=== PATIENT | female | born 1990 | race Asian ===

== ENCOUNTER 2017-01-24 06:21 | Outpatient (CLI) | payer MEDICAID ==
[2017-01-24] MEDS ORDERED: LACTATED RINGERS 1,000 ML ONE (07:09)
[2017-01-24] MEDS ORDERED: LACTATED RINGERS 500 ML IV ONE (07:49)
[2017-01-24 08:25] LABS: Bilirubin,Urine NEG (Negative); Blood,Urine NEG (Negative); Ketones,Urine NEG (Negative); Leukocyte Esterase,Urine NEG (Negative); Mucus,Urine 1+ /HPF; Nitrite,Urine NEG (Negative); Protein,Urine <15 mg/dL mg/dL (Negative); Urobilinogen,Urine < 2.0 mg/dL (<2.0)
== END 2017-01-24 11:03 | disposition home or self-care (01) ==
LOC: TRG 06:21
PROVIDERS: ATTEND Obstetrics & Gynecology
DX: O47.03 False labor before 37 completed weeks of gestation, third trimester (principal); Z3A.30 30 weeks gestation of pregnancy
CPT/HCPCS: 81001; 96360; J7120

== ENCOUNTER 2017-03-09 21:31 | Outpatient (CLI) | payer MEDICAID ==
[2017-03-09 22:00] VITALS: BP 111/76
[2017-03-09] MEDS ORDERED: LACTATED RINGERS 500 ML IV ONE (22:10)
== END 2017-03-09 22:53 | disposition left against medical advice (07) ==
LOC: TRG 21:31
PROVIDERS: ATTEND Obstetrics & Gynecology
DX: O47.03 False labor before 37 completed weeks of gestation, third trimester (principal); Z3A.36 36 weeks gestation of pregnancy
CPT/HCPCS: J7120

== ENCOUNTER 2017-03-30 21:04 | Inpatient (IN) | payer MEDICAID ==
[2017-03-30 23:23] LABS: Hematocrit 33.2 % (30.3-42.9); Hemoglobin 11.2 gm/dl (10.1-14.3); Mean Corpuscular HGB Conc 34 % (30-34); Mean Corpuscular Hemoglobin 26 pg (28-32); Mean Corpuscular Volume 78 fl (79-97); Platelet Count 294 K/mm3 (140-440); Red Blood Count 4.24 M/mm3 (3.65-5.03); Red Cell Distribution Width 18.7 % (13.2-15.2)
[2017-03-30] MEDS ORDERED: AMBIEN PO PRN (23:29)
[2017-03-30] MEDS ORDERED: CERVIDIL VG ONE (23:29)
[2017-03-30] MEDS ORDERED: SUBLIMAZE IV ONE (23:29)
[2017-03-30] MEDS ORDERED: LACTATED RINGERS 1,000 ML IV SCH (23:45)
[2017-03-31] MEDS: STADOL IV PRN ×2 (06:08→10:44)
--- NOTE | 2017-03-31 08:31 | History and Physical Report ---
History of Present Illness Date of examination: 03/31/17 Date of admission: 03/30/17 21:04 History of present illness: 26 yo Ultrasound EDC 04/03/17 @ 39.4 weeks gestation presented during the night for induction of labor. Early entry into care at 12 weeks gestation. History of pulmonary embolism. Treated with Lovenox 40mg BID and unfractionated heparin started on 02/25/17. course complicated by morbid obesity with low normal first and second trimester GCT. Patient also noted to have LGSIL pap , UTI treated with Macrobid and intermittent left leg numbness. Her care was comang't with [facility]. Last EFW 6.8oz Past History Past Medical History: other (pulmonary embolism 2013, Iron deficiency) [employer] History: other (LGSIL pap) Family/Genetic History: diabetes, hypertension, stroke Social history: no significant social history - Obstetrical History Expected Date of Delivery: 04/03/17 Actual Gestation: 39 Week(s) 4 Day(s) : 2 Para: 0 Medications and Allergies Allergies Allergy/AdvReac Type Severity Reaction Status Date / Time No Known Allergies Allergy Unverified 01/24/17 07:00 Home Medications Medication Instructions Recorded Confirmed Last Taken Type Enoxaparin [Lovenox] 40 mg SQ Q12HR 01/24/17 01/24/17 01/23/17 20:00 History Ferrous Sulfate [Feosol] 325 mg PO QDAY 01/24/17 01/24/17 01/23/17 20:00 History Vitamin 1 tab PO QDAY 01/24/17 01/24/17 01/23/17 20:00 History Active Meds: Active Medications Butorphanol Tartrate (Stadol) 2 mg IV Q2H PRN PRN Reason: Labor Pain Last Admin: 03/31/17 06:08 Dose: 2 mg Lactated Ringer's (Lactated Ringers) 1,000 mls @ 125 mls/hr IV DIRECT JOSE Last Admin: 03/31/17 06:20 Dose: 125 mls/hr Zolpidem Tartrate (Ambien) 10 mg PO QHS PRN PRN Reason: Insomnia Last Admin: 03/31/17 00:19 Dose: 10 mg Review of Systems All systems: negative Genitourinary: normal appearance, leakage of fluid (clear), contractions, no vaginal bleeding, no genital sores - Vital Signs Vital signs: Vital Signs Temp Pulse Resp BP Pulse Ox 98.0 F 96 H 20 132/73 97 03/30/17 22:31 03/30/17 22:31 03/30/17 22:31 03/30/17 22:31 03/30/17 22:31 Temp Pulse Resp BP Pulse Ox 97.4 F L 99 H 24 135/95 100 03/31/17 08:01 03/31/17 08:24 03/31/17 08:01 03/31/17 08:01 03/31/17 08:24 - Physical Exam Breasts: Positive: deferred Abdomen: Positive: normal appearance Genitourinary (Female): Positive: normal external genitalia, normal perenium Vagina: Positive: normal moisture - Obstetrical FHR: category 1 Uterine Contraction Monitor Mode: External Cervical Dilatation: 3 Cervical Effacement Percentage: 50 station: -2 Uterine Contraction Frequency (min): 2 Uterine Contraction Duration: 60-80 Uterine Contraction Pattern: Regular Uterine Tone Measurement Phase: Contraction Uterine Contraction Intensity: Moderate Results Result Diagrams: 03/31/17 10:11 03/31/17 10:11 Abnormal lab results 03/30/17 Range/Units 22:27 MCV 78 L (79-97) fl MCH 26 L (28-32) pg RDW 18.7 H (13.2-15.2) % All other labs normal. Assessment and Plan A: IUP @ 39.4 weeks gestation Morbid Obesity Induction History of Pulmonary Embolism Category 1 tracing P: MD consult Cervidil removed @ introtus Active Man't Pitocin AROM-scant clear fluid ISE placed
--- NOTE | 2017-03-31 08:33 | Ultrasound Report ---
ULTRASOUND OB LIMITED History: well being, check position Technique: Transabdominal ultrasound with Doppler interrogation. Gestation: Single Position: Cephalic Heart Rate: 145 BPM
[2017-03-31] MEDS ORDERED: PITOCin/NS 20 UNIT/1000ML DRIP 20 UNITS/1,000 ML BAG IV SCH ×3 (09:00→23:00)
[2017-03-31] MEDS ORDERED: ZOFRAN IV PRN (09:00)
[2017-03-31] MEDS ORDERED: PITOCin/NS 30 UNIT/500ML 30 UNITS/500 ML BAG IV SCH (09:00)
[2017-03-31] MEDS ORDERED: ePHEDrine SULFATE IV PRN ×2 (09:00→13:12)
[2017-03-31] MEDS ORDERED: SUBLIMAZE IV PRN (09:00)
[2017-03-31] MEDS: PITOCin/NS 30 UNIT/500ML 30 UNITS/500 ML BAG IV SCH ×10 (09:30→18:13)
[2017-03-31] MEDS ORDERED: BRETHINE SUB-Q PRN (09:30)
[2017-03-31] MEDS ORDERED: XYLOCAINE 2% INFILTRATI ONE (09:30)
[2017-03-31] MEDS ORDERED: MINERAL OIL PO PRN (09:30)
[2017-03-31] MEDS ORDERED: APRESOLINE IV PRN ×2 (10:00→10:30)
[2017-03-31] MEDS ORDERED: APRESOLINE ONE (10:12)
[2017-03-31] MEDS ORDERED: BRETHINE IVP PRN (10:30)
[2017-03-31 10:36] LABS: Hematocrit 38.6 % (30.3-42.9); Hemoglobin 12.7 gm/dl (10.1-14.3); Mean Corpuscular HGB Conc 33 % (30-34); Mean Corpuscular Volume 79 fl (79-97); Platelet Count 301 K/mm3 (140-440); Red Blood Count 4.92 M/mm3 (3.65-5.03); Red Cell Distribution Width 18.3 % (13.2-15.2); White Blood Count 8.7 K/mm3 (4.5-11.0)
[2017-03-31 10:52] LABS: Alanine Aminotransferase 12 units/L (7-56); Lactate Dehydrogenase 218 units/L (91-180); Uric Acid 3.8 mg/dL (3.5-7.6)
[2017-03-31 11:01] LABS: Mean Corpuscular Hemoglobin 26 pg (28-32)
--- NOTE | 2017-03-31 12:50 | Event Note ---
Date: 03/31/17 S: Pain with contractions, recently received IV medication O: Bolus for Epidural in place Elevated BP, negative PIH S&S PIH labs negative FHT: Category 1 tracing UC: 2-3 x 60-80 seconds SVE: 4/90/-2/vtx Pitocin at 2 mu A:IUP at 39.4 weeks Induction of Labor Suspect elevated BP related to pain P: IUPC Epidural Strict alphonso't of labor curve
[2017-03-31] MEDS: LACTATED RINGERS 1,000 ML IV SCH ×2 (12:55→14:33)
[2017-03-31] MEDS ORDERED: NARCAN 2 MG/2 ML IV PRN (13:12)
--- NOTE | 2017-03-31 13:16 | Anesthesia Consultation ---
Anesthesia Consult and Med Hx Date of service: 03/31/17 - Airway Anesthetic Teeth Evaluation: Good ROM Head & Neck: Adequate Mental/Hyoid Distance: Adequate Mallampati Class: Class II Intubation Access Assessment: Probably Good - Pulmonary Exam CTA: Yes - Cardiac Exam Cardiac Exam: RRR - Pre-Operative Health Status ASA Pre-Surgery Classification: ASA3 Proposed Anesthetic Plan: Epidural, Spinal - Pulmonary Hx Asthma: No Hx Respiratory Symptoms: Yes (h/o pulmonary embolism) COPD: No Hx Pneumonia: No - Cardiovascular System Hx Hypertension: No (elevated BPs during induction) - Central Nervous System Hx Seizures: No Hx Psychiatric Problems: No - Endocrine Hx Renal Disease: No Hx End Stage Renal Disease: No Hx Hypothyroidism: No Hx Hyperthyroidism: No - Hematic Hx Anemia: Yes (iron supplements) Hx Sickle Cell Disease: No - Other Systems Hx Alcohol Use: No Hx Obesity: Yes (morbid, BMI > 40)
[2017-03-31] MEDS ORDERED: fentaNYL-BUPIV 2 MCG/ML-0.125% 200 MCG/100 ML BAG EPIDURAL SCH (14:00)
[2017-03-31 14:48] LABS: Bilirubin,Urine NEG (Negative); Blood,Urine NEG (Negative); Ketones,Urine 80 mg/dL (Negative); Leukocyte Esterase,Urine NEG (Negative); Mucus,Urine 1+ /HPF; Nitrite,Urine NEG (Negative); Urobilinogen,Urine < 2.0 mg/dL (<2.0)
[2017-03-31] MEDS ORDERED: PEPCID IV SCH (18:30)
[2017-03-31] MEDS ORDERED: REGLAN IV SCH (18:30)
[2017-03-31] MEDS ORDERED: ceFAZolin 2 GM in NACL 0.9% 100 ML IV ONE (18:31)
[2017-03-31] MEDS ORDERED: ANCEF/STERILE WATER 2 GM/20 ML 2 GM/20 ML SYRINGE IV SCH (19:00)
[2017-03-31] MEDS ORDERED: LACTATED RINGERS 1,000 ML IV SCH (19:00)
[2017-03-31] MEDS ORDERED: BICITRA PO SCH (19:00)
[2017-03-31] MEDS ORDERED: XYLOCAINE MPF 2% ONE ×3 (19:44)
[2017-03-31] MEDS ORDERED: WATER FOR IRRIG STERILE IR ONE (19:55)
[2017-03-31] MEDS ORDERED: NACL 0.9% IR ONE (19:55)
[2017-03-31] MEDS ORDERED: ZEMURON IV ONE (20:00)
[2017-03-31] MEDS ORDERED: NEO SYNEPHRINE/NS Syringe(OR USE) IV ONE (20:00)
[2017-03-31] MEDS ORDERED: VERSED ONE (20:04)
[2017-03-31] MEDS ORDERED: ZOFRAN ONE (20:08)
[2017-03-31] MEDS ORDERED: SUBLIMAZE ONE (20:09)
[2017-03-31] MEDS ORDERED: ePHEDrine SULFATE ONE (20:31)
[2017-03-31] MEDS ORDERED: BREVIBLOC IV ONE (20:58)
[2017-03-31] MEDS ORDERED: NORMODYNE IV ONE (21:36)
[2017-03-31] MEDS ORDERED: TORADOL IV PRN (21:49)
[2017-03-31] MEDS ORDERED: MORPHINE IV PRN ×2 (21:49)
[2017-03-31] MEDS ORDERED: BENADRYL IV PRN (21:50)
--- NOTE | 2017-03-31 21:54 | Anesthesia Day of Surgery ---
Anesthesia Day of Surgery - Day of Surgery Patient Examined: Yes Patient H&P Reviewed: Yes Patient is NPO: Yes
--- NOTE | 2017-03-31 21:57 | Post Anesthesia Evaluation ---
- Post Anesthesia Evaluation Patient Participated: Yes Airway Patent: Yes Stable Respiratory Function: Yes Nausea/Vomiting: No Temp > 96.8F: Yes Pain Manageable: Yes Adequeate Hydration: Yes Anesthesia Complications: No Block Receding Appropriately: Yes Patient on Ventilator: No Other Comments: Patient tachycardic with heart rate of 150s, and Oxygen saturations in mid 80s on 100% NRB. Patient awake, alert and oriented. Concern for pulmonary embolism. STAT CT angiogram ordered and consulting hospitalist/ ICU.
--- NOTE | 2017-03-31 22:13 | Event Note ---
Date: 03/31/17 26 yo s/p Pimary c/sec for failure to progress, failed IOL. During the surgery she started experiencing a run of svt. She became tacharcardic and tachypneic with elevated bp. Pulse ox down to 80s. Immediately called hospitalist and ICU attending. Dr. Ruiz and myself attending to patient and ordered stat ct spiral and ekg. Spoke with Dr. Gary and agree with transfer to ICU. Continue close monitor of the patient.
[2017-03-31] MEDS ORDERED: TUCKS PAD TP PRN (22:36)
[2017-03-31] MEDS ORDERED: SENOKOT PO PRN (22:36)
[2017-03-31] MEDS ORDERED: NORCO 5/325 PO PRN (22:36)
[2017-03-31] MEDS ORDERED: PHENERGAN PR PRN (22:36)
[2017-03-31] MEDS ORDERED: ANUCORT-HC PR PRN (22:36)
[2017-03-31] MEDS ORDERED: MYLICON PO PRN (22:36)
[2017-03-31] MEDS ORDERED: MILK OF MAGNESIA PO PRN (22:36)
[2017-03-31] MEDS ORDERED: NARCAN 0.4 MG/1 ML IV PRN ×2 (22:36)
[2017-03-31] MEDS ORDERED: MOTRIN PO PRN (22:36)
[2017-03-31] MEDS ORDERED: LANSINOH TP PRN (22:36)
--- NOTE | 2017-03-31 22:36 | Operative Report ---
Operative Report Operative Report: PREOPERATIVE DIAGNOSES: 1. Intrauterine at term. 2. Arrest of dilation. POSTOPERATIVE DIAGNOSES: 1. Intrauterine at term. 2. Arrest of dilation. 3. Op presentation PROCEDURE PERFORMED: Primary low-transverse section. ANESTHESIA: Epidural. ESTIMATED BLOOD LOSS: 1000 mL. COMPLICATIONS: None. FINDINGS: Male infant in cephalic presentation, OP position, weight 7 pounds 8 ounces. Apgars were 1 at 1 minute and 4 at 5 minutes. Normal uterus, tubes, and ovaries were noted. INDICATIONS: The patient is a 26-year-old 1, para 0 female, who presented to labor and delivery in early active labor at 39 weeks 0/7 weeks gestation. The patient progressed to 9 cm, . She subsequently progressed to 9.5 cm, but despite adequate contractions, arrested dilation at 9.5 withe cervical swelling. A decision was made to proceed with a primary low transverse section. The procedure was described to the patient in detail including possible risks of bleeding, infection, injury to surrounding organs, and possible need for further surgery. Informed consent was obtained prior to proceeding with the procedure. PROCEDURE NOTE: The patient was taken to the operating room where epidural anesthesia was found to be adequate. The patient was prepped and draped in the usual sterile fashion in the dorsal supine position with a left-severino tilt. A Pfannenstiel skin incision was made with the scalpel and carried through to the underlying layer of fascia using the Bovie. The fascia was incised in the midline and extended laterally using Kevin scissors. Marie clamps were used to elevate the superior aspect of the fascial incision, which was elevated, and the underlying rectus muscles were dissected off bluntly and using Kevin scissors. Attention was then turned to the inferior aspect of the fascial incision, which in similar fashion was grasped with Marie clamps, elevated, and the underlying rectus muscles were dissected off bluntly and using Kevin scissors. The rectus muscles were dissected in the midline. The peritoneum was bluntly dissected, entered, and extended superiorly and inferiorly with good visualization of the bladder. The bladder blade was inserted. The vesicouterine peritoneum was identified with pickups and entered sharply using Metzenbaum scissors. This incision was extended laterally and the bladder flap was created digitally. The bladder blade was reinserted. The lower uterine segment was incised in a transverse fashion using the scalpel and extended using manual traction. Clear fluid was noted. The was subsequently delivered atraumatically. The nose and mouth were bulb suctioned. The cord was clamped and cut. The was subsequently handed to the awaiting nursery nurse. Subsequent to the collection of this blood, the placenta was removed spontaneously intact with a 3-vessel cord noted. The uterus was exteriorized and cleared of all clots and debris. The uterine incision was repaired in 2 layers using 0 chromic suture. Hemostasis was visualized. The uterus was returned to the abdomen. The pelvis was copiously irrigated. The uterine incision was reexamined and was noted to be hemostatic.Patient had had prior to surgery had a [place] replaced secondary to bloody tinge and position. At this point no fluid returned prior to surgery however i used sterile milk to insufllate the bladder with no milk in filed. neg testing for bladder injury. The rectus muscles were reapproximated in the midline using 3-0 Vicryl. The fascia was closed with 0 Vicryl, the subcutaneous layer was closed with 3-0 plain gut, and the skin was closed with kallie. Sponge, lap, and instrument counts were correct x2. The patient was stable at the completion of the procedure and was subsequently transferred to the recovery room in stable condition.
[2017-03-31] MEDS ORDERED: SODIUM CHLORIDE FLUSH SYRINGE 10 ML IV PRN (23:00)
[2017-03-31] MEDS ORDERED: NACL ONE (23:08)
--- NOTE | 2017-03-31 23:53 | Cat Scan Report ---
FINAL REPORT PROCEDURE: CT ANGIO CHEST TECHNIQUE: Computerized axial tomographic angiography of the chest and pulmonary arteries was performed after the IV injection of iodinated nonionic contrast. The image data was postprocessed using maximum intensity projection (MIP) and 2-dimensional multiplanar reformatted (MPR) techniques. The examination is specifically tailored to the evaluation of the pulmonary arteries per clinical request. HISTORY: Short of breath 786.09, chest pain 786.50, Hypoxemia, history of pulmonary embolism s/p hours ago COMPARISON: No prior studies are available for comparison. FINDINGS: Heart and pericardium: Normal. Thoracic aorta: Thoracic aorta is normal in caliber. There is no aneurysm or dissection.. Pulmonary vasculature: Normal. No pulmonary emboli. Lymph nodes: No enlarged thoracic lymph nodes. Lungs: There are diffuse bilateral pulmonary infiltrates predominantly in the upper lobes and worse on right.. Pleural space: There are no effusions or pneumothoraces.. Musculoskeletal structures: No significant abnormality. Upper abdominal structures: Images of the upper abdomen demonstrate a parapelvic cyst in the left kidney measuring 3.8 centimeters.. IMPRESSION: Thoracic aorta is normal in caliber. There is no aneurysm or dissection.. There is no pulmonary embolism. There are diffuse bilateral pulmonary infiltrates predominantly in the upper lobes and worse on right.. There are no effusions or pneumothoraces.. .
[2017-04-01 00:40] LABS: Hematocrit 35.4 % (30.3-42.9); Hemoglobin 11.6 gm/dl (10.1-14.3); Mean Corpuscular HGB Conc 33 % (30-34); Mean Corpuscular Hemoglobin 26 pg (28-32); Mean Corpuscular Volume 80 fl (79-97); Platelet Count 205 K/mm3 (140-440); Red Blood Count 4.43 M/mm3 (3.65-5.03); Red Cell Distribution Width 18.7 % (13.2-15.2); White Blood Count 17.5 K/mm3 (4.5-11.0)
[2017-04-01 01:00] LABS: Alanine Aminotransferase 9 units/L (7-56); Albumin 2.7 g/dL (3.9-5); Albumin/Globulin Ratio 0.8 %; Alkaline Phosphatase 122 units/L (35-129); Anion Gap 19 mmol/L; BUN/Creatinine Ratio 16.66; Blood Urea Nitrogen 10 mg/dL (7-17); Calcium 8.6 mg/dL (8.4-10.2); Carbon Dioxide 20 mmol/L (22-30); Chloride 103.8 mmol/L (98-107); Glucose 90 mg/dL (65-100); Potassium 4.5 mmol/L (3.6-5.0); Sodium 138 mmol/L (137-145); Total Protein 5.9 g/dL (6.3-8.2)
[2017-04-01] MEDS ORDERED: MORPHINE PCA 30MG/30ML IV ONE (01:02)
[2017-04-01] MEDS: MORPHINE PCA 30MG/30ML IV SCH (01:45)
[2017-04-01 02:27] LABS: Uric Acid 4.6 mg/dL (3.5-7.6)
[2017-04-01 02:58] LABS: Basophils % (Manual) 0 % (0.0-1.8); Blastocytes % (Manual) 0 %; Eosinophils % (Manual) 0 % (0.0-4.3)
[2017-04-01 03:01] LABS: Anisocytosis 1+; Diff Status Complete; Platelet Estimate Consistent w Auto; Polychromasia Few
--- NOTE | 2017-04-01 03:40 | Consultation ---
History of Present Illness - Reason for Consult Consult date: 03/31/17 reason for consult; 1 tachycardia 2. hypoxia Requesting physician: CARLENE SAMANO - History of Present Illness Patient is a 26-year-old female who was noted to develop tachycardia and dyspnea with low O2 sat about 30 minutes after and was still in the recovery room with these symptoms, patient was also noted to have a run of V. tach during the and has past history of pulmonary embolism. There was no history of chest pain and no history of fever or chills nausea or vomiting and the hospitalist group was consulted to take care of patient's symptoms. Past History Past Medical History: other (PULMONARY EMBOLISM) Past Surgical History: Social history: no significant social history Family history: no significant family history Medications and Allergies Allergies Allergy/AdvReac Type Severity Reaction Status Date / Time No Known Allergies Allergy Unverified 01/24/17 07:00 Home Medications Medication Instructions Recorded Confirmed Last Taken Type Enoxaparin [Lovenox] 40 mg SQ Q12HR 01/24/17 03/31/17 03/29/17 21:30 History Ferrous Sulfate [Feosol] 325 mg PO QDAY 01/24/17 03/31/17 03/30/17 11:00 History Vitamin 1 tab PO QDAY 01/24/17 03/31/17 03/30/17 11:00 History Active Meds: Active Medications Acetaminophen/Hydrocodone Bitart ([place] 5/325) 1 each PO Q6H PRN PRN Reason: Pain, Moderate (4-6) Diphenhydramine HCl (Benadryl) 25 mg IV Q6H PRN PRN Reason: Itching Diphtheria/Tetanus/Acell Pertussis (Boostrix) 0.5 ml IM .ONCE ONE Stop: 04/02/17 06:01 Ferrous Sulfate (Feosol) 325 mg PO QDAY JOSE Hydralazine HCl (Apresoline) 10 mg IV Q30MIN PRN PRN Reason: Blood Pressure Last Admin: 03/31/17 10:23 Dose: 10 mg Hydrocortisone Acetate (Anucort-Hc) 25 mg NE BID PRN PRN Reason: Hemorrhoids Lactated Ringer's (Lactated Ringers) 1,000 mls @ 125 mls/hr IV DIRECT JOSE Last Admin: 03/31/17 14:33 Dose: 125 mls/hr Lactated Ringer's (Lactated Ringers) 1,000 mls @ 2,250 mls/hr IV PREOP JOSE Stop: 04/01/17 19:27 Oxytocin/Sodium Chloride (Pitocin/Ns 20 Unit/1000ml Drip) 20 units in 1,000 mls @ 250 mls/hr IV DIRECT JOSE Last Admin: 03/31/17 22:05 Dose: 250 mls/hr Ibuprofen (Motrin) 800 mg PO Q6H PRN PRN Reason: Pain, Mild (1-3) Ketorolac Tromethamine (Toradol) 30 mg IV Q6H PRN PRN Reason: Pain, Moderate (4-6) Stop: 04/05/17 21:48 Magnesium Hydroxide (Milk Of Magnesia) 30 ml PO QHS PRN PRN Reason: Constip Unrelieved By Senna Measles/Mumps/Rubella Vaccine Live (M-M-R Ii Vaccine) 0.5 ml SUB-Q .ONCE ONE Stop: 04/01/17 22:38 Mineral Oil (Mineral Oil) 30 ml PO QHS PRN PRN Reason: Constipation Morphine Sulfate (Morphine) 2 mg IV Q4H PRN PRN Reason: Pain, Moderate (4-6) Last Admin: 04/01/17 00:04 Dose: 2 mg Morphine Sulfate (Morphine Cloth Carrier 30mg/30ml) 0 mg IV DIRECT JOSE PRN Reason: Protocol Last Admin: 04/01/17 01:45 Dose: 1.5 cart Multi-Ingredient Ointment (Lansinoh) 1 applic TP PRN PRN PRN Reason: dryness/cracking Multivitamins/Iron/Calcium ( Vitamin) 1 each PO QDAY [facility] Naloxone HCl (Narcan 0.4 Mg/1 Ml) 0.1 mg IV Q2MIN PRN PRN Reason: Res Rate </= 8 or 02 SAT < 92% Ondansetron HCl (Zofran) 4 mg IV Q8H PRN PRN Reason: Nausea And Vomiting Promethazine HCl (Phenergan) 25 mg NE Q6H PRN PRN Reason: N/V IF NPO AND NO IV ACCESS Senna (Senokot) 17.2 mg PO QHS PRN PRN Reason: Constipation Simethicone (Mylicon) 80 mg PO Q6H PRN PRN Reason: Gas pain Sodium Chloride (Sodium Chloride Flush Syringe 10 Ml) 10 ml IV PRN PRN PRN Reason: LINE FLUSH Witch Zoe/Glycerin (Tucks Pad) 1 each TP PRN PRN PRN Reason: Hemorrhoids/cleansing/soothing Zolpidem Tartrate (Ambien) 10 mg PO QHS PRN PRN Reason: Insomnia Last Admin: 03/31/17 00:19 Dose: 10 mg Review of Systems Constitutional: no weight gain, no fever, no chills, no anorexia, no fatigue, no weakness, no malaise, no daytime sleepiness Eyes: bilateral: other (NO BILATERAL EYE SYMPTOMS) Ears, nose, mouth and throat: no ear pain, no ear discharge, no tinnitis, no decreased hearing, no nose pain, no nasal congestion, no dental pain, no mouth pain, no dysphagia, no headache Breasts: deferred Cardiovascular: palpitations, shortness of breath, no chest pain, no syncope, no lightheadedness, no paroxysmal nocturnal dyspnea, no high blood pressure Respiratory: shortness of breath, no cough, no cough with sputum, no excessive sputum, no hemoptysis, no wheezing, no pleurisy, no respiratory infections Gastrointestinal: no nausea, no vomiting, no hematemesis, no hematochezia, no heartburn, no jaundice Genitourinary Female: no flank pain, no dysuria, no urinary frequency, no urgency, no hematuria Rectal: no pain Musculoskeletal: no neck pain, no shooting arm pain, no shooting leg pain, no muscle cramps, no myalgias Integumentary: no rash, no pruritis, no sores, no jaundice, no lesions, no darkening of skin, no depigmentation Neurological: no parathesias, no numbness, no tingling, no seizures, no syncope , no tremors, no ataxia, no headaches, no migraines, no convulsions, no aphasia , no change in speech, no change in mentation, no confusion, no sensory deficit , no double vision, no loss of vision Psychiatric: no anxiety, no memory loss, no change in sleep habits, no hypersomnia, no suicidal ideation, no disorientation, no hallucinations, no depression, no hopelessness Endocrine: no heat intolerance, no polyphagia, no excessive thirst, no polydipsia, no excessive sweating, no deepening of the voice, no high blood sugars, no low blood sugars Hematologic/Lymphatic: no easy bruising, no easy bleeding, no lymphadenopathy Allergic/Immunologic: no urticaria, no allergic rhinitis, no persistent infections, no anaphylaxis Exam - Constitutional Vitals: Temp Pulse Resp BP Pulse Ox 98.7 F 138 H 53 H 147/89 98 04/01/17 00:35 04/01/17 01:45 04/01/17 01:45 04/01/17 01:45 04/01/17 01:45 General appearance: Present: mild distress - EENT Eyes: Present: PERRL, EOM intact ENT: hearing intact, clear oral mucosa - Neck Neck: Present: supple, normal ROM. Absent: enlarged thyroid, carotid bruits - Respiratory Respiratory effort: labored Respiratory: bilateral: other (BILATERAL HARSH BREATH SOUND) - Cardiovascular Rhythm: regular Heart Sounds: Present: S1 & S2. Absent: gallop, systolic murmur, diastolic murmur, click - Extremities Extremities: no ischemia Peripheral Pulses: within normal limits - Abdominal General gastrointestinal: Present: deferred - Rectal Rectal Exam: deferred - Integumentary Integumentary: Present: clear, warm, dry, normal turgor. Absent: erythema, jaundice, clammy Results - Labs CBC & Chem 7: 04/01/17 00:02 04/01/17 00:02 Labs: Abnormal lab results 03/31/17 03/31/17 04/01/17 Range/Units 10:11 10:11 00:02 WBC (4.5-11.0) K/mm3 MCH 26 L (28-32) pg RDW 18.3 H (13.2-15.2) % Seg Neuts % (Manual) (40.0-70.0) % Lymphocytes % (Manual) (13.4-35.0) % Seg Neutrophils # Man (1.8-7.7) K/mm3 Lymphocytes # (Manual) (1.2-5.4) K/mm3 D-Dimer 9484.24 H (0-234) ng/mlDDU Carbon Dioxide (22-30) mmol/L Creatinine 0.5 L (0.7-1.2) mg/dL Lactate Dehydrogenase 218 H (91-180) units/L Total Protein (6.3-8.2) g/dL Albumin (3.9-5) g/dL 04/01/17 04/01/17 Range/Units 00:02 00:02 WBC 17.5 H (4.5-11.0) K/mm3 MCH 26 L (28-32) pg RDW 18.7 H (13.2-15.2) % Seg Neuts % (Manual) 71.0 H (40.0-70.0) % Lymphocytes % (Manual) 2.0 L (13.4-35.0) % Seg Neutrophils # Man 12.4 H (1.8-7.7) K/mm3 Lymphocytes # (Manual) 0.4 L (1.2-5.4) K/mm3 D-Dimer (0-234) ng/mlDDU Carbon Dioxide 20 L (22-30) mmol/L Creatinine 0.6 L (0.7-1.2) mg/dL Lactate Dehydrogenase (91-180) units/L Total Protein 5.9 L (6.3-8.2) g/dL Albumin 2.7 L (3.9-5) g/dL Assessment and Plan - Patient Problems (1) Tachycardia Current Visit: Yes Status: Acute Plan to address problem: She will be transferred to ICU for continued management and had CT angiogram of the chest done that ruled out pulmonary embolism and aortic dissection also patient will have 2-D echo done in the morning of 04/01/2017. Patient will be started on IV Rocephin 1 g daily and IV Zithromax 500 mg daily because of finding of bilateral infiltrate on CT angiogram of the chest and will be on oxygen by nasal cannula will to be titrated to keep O2 sat at 95% and above. Patient will maintain her other prescriptions and admission orders written by the copy messenger. (2) Dyspnea Current Visit: Yes Status: Acute Qualifiers: Dyspnea type: D
--- NOTE | 2017-04-01 07:07 | Progress Note ---
Assessment and Plan A/P POD#1 s/p primary LSTCS arrest of descent will continue following along with ICU - will follow recommendations of pulmonary infiltrates ( continue antibiotics) advance as tolerated for diet post op care unremarkable ( dressing intact not oozing ) closely follow with ICU Hx of PE ( recommended restart lovenox at least 12 hrs after c/s ) for 6- 8 weeks Subjective - Subjective Date of service: 04/01/17 Principal diagnosis: s/p primary c/s secondary to arrest of descent with pneumonia Patient reports: no bowel movement [place]: doing well, in NICU Objective - Vital Signs Latest vital signs: Vital Signs Temp Pulse Pulse Pulse Resp BP BP 04/01/17 06:29 121 H 49 H 126/85 04/01/17 05:00 130 H 47 H 04/01/17 04:30 133 H 34 H 159/72 04/01/17 04:02 52 H 04/01/17 04:00 99.2 F 131 H 35 H 145/72 04/01/17 03:00 129 H 60 H 134/102 04/01/17 02:30 131 H 55 H 141/77 04/01/17 02:15 132 H 50 H 130/78 04/01/17 01:45 138 H 53 H 147/89 04/01/17 01:15 136 H 57 H 162/93 04/01/17 01:06 134 H 48 H 04/01/17 01:00 136 H 53 H 147/82 04/01/17 00:45 134 H 56 H 162/93 04/01/17 00:35 98.7 F 04/01/17 00:30 134 H 56 H 144/81 04/01/17 00:15 137 H 43 H 145/95 03/31/17 23:45 141 H 34 H 139/82 03/31/17 23:10 03/31/17 22:41 134 H 24 124/43 03/31/17 22:37 131 H 20 124/43 03/31/17 22:31 136 H 21 103/60 03/31/17 22:21 129 H 19 126/64 03/31/17 22:11 128 H 22 117/46 03/31/17 22:06 126 H 18 124/56 03/31/17 22:01 131 H 24 141/105 03/31/17 21:50 128 H 39 H 156/100 03/31/17 21:46 133 H 19 101/57 03/31/17 21:40 133 H 52 H 138/94 03/31/17 21:31 139 H 56 H 120/91 03/31/17 21:27 149 H 20 196/99 03/31/17 21:21 99.9 F H 80 20 169/102 03/31/17 21:20 164 H 21 03/31/17 19:15 115 H 121/81 03/31/17 19:00 121 H 123/67 03/31/17 18:15 108 H 143/89 03/31/17 18:00 108 H 166/94 03/31/17 17:45 115 H 169/90 03/31/17 17:29 101 H 138/82 03/31/17 17:15 101 H 137/91 03/31/17 16:59 108 H 130/76 03/31/17 16:46 111 H 132/83 03/31/17 16:30 71 135/74 03/31/17 16:14 98 H 129/65 03/31/17 16:05 97.1 F L 110 H 24 150/77 03/31/17 15:59 110 H 150/77 03/31/17 15:44 102 H 144/82 03/31/17 15:30 93 H 136/82 03/31/17 15:15 117 H 135/74 03/31/17 14:57 110 H 129/80 03/31/17 14:56 84 03/31/17 14:54 103 H 03/31/17 14:52 111 H 128/72 03/31/17 14:51 89 03/31/17 14:48 118 H 126/66 03/31/17 14:46 127 H 03/31/17 14:42 107 H 120/65 03/31/17 14:41 109 H 03/31/17 14:37 96 H 117/61 03/31/17 14:36 110 H 03/31/17 14:34 121 H 116/57 03/31/17 14:31 104 H 03/31/17 14:28 115 H 113/58 03/31/17 14:26 125 H 03/31/17 14:21 114 H 104/57 03/31/17 14:19 108 H 114/59 03/31/17 14:17 100 H 96/54 03/31/17 14:16 70 03/31/17 14:15 108 H 96/53 03/31/17 14:13 114 H 105/56 03/31/17 14:11 118 H 103/57 03/31/17 14:09 121 H 96/52 03/31/17 14:07 111 H 95/54 03/31/17 14:06 118 H 03/31/17 14:05 122 H 96/52 03/31/17 14:03 123 H 107/51 03/31/17 14:01 118 H 109/57 03/31/17 13:59 127 H 115/58 03/31/17 13:57 110 H 110/63 03/31/17 13:56 110 H 03/31/17 13:55 130 H 110/55 03/31/17 13:54 114 H 116/61 03/31/17 13:51 95 H 03/31/17 13:46 104 H 03/31/17 13:45 126 H 113/79 03/31/17 13:43 56 L 03/31/17 13:41 109 H 03/31/17 13:40 105 H 130/91 03/31/17 13:36 97.4 F L 109 H 117 H 24 139/100 03/31/17 13:33 117 H 139/100 03/31/17 13:31 110 H 141/100 03/31/17 13:15 96 H 136/95 03/31/17 13:03 101 H 175/100 03/31/17 13:02 98 H 03/31/17 13:01 03/31/17 12:53 96 H 03/31/17 12:51 104 H 03/31/17 12:47 110 H 163/87 03/31/17 12:46 119 H 03/31/17 12:41 122 H 03/31/17 12:36 112 H 03/31/17 12:35 03/31/17 12:32 115 H 138/87 03/31/17 12:29 67 03/31/17 12:16 96 H 120/76 03/31/17 12:13 03/31/17 12:09 03/31/17 12:08 03/31/17 12:03 114 H 03/31/17 12:00 97.6 F 112 H 109 H 24 153/83 153/83 03/31/17 11:58 107 H 03/31/17 11:57 114 H 03/31/17 11:53 112 H 03/31/17 11:52 104 H 153/79 03/31/17 11:51 101 H 03/31/17 11:48 106 H 03/31/17 11:43 101 H 03/31/17 11:42 115 H 03/31/17 11:38 119 H 03/31/17 11:36 118 H 162/98 03/31/17 11:35 114 H 03/31/17 11:33 116 H 03/31/17 11:28 114 H 03/31/17 11:27 98 H 03/31/17 11:23 75 03/31/17 11:22 65 170/81 03/31/17 11:18 72 03/31/17 11:16 98 H 03/31/17 11:13 73 03/31/17 11:08 78 03/31/17 11:05 118 H 180/89 03/31/17 11:03 108 H 03/31/17 10:58 100 H 03/31/17 10:53 105 H 03/31/17 10:48 102 H 03/31/17 10:47 106 H 03/31/17 10:45 100 H 153/67 03/31/17 10:44 20 03/31/17 10:41 100 H 149/84 03/31/17 10:35 95 H 162/99 03/31/17 10:34 98 H 03/31/17 10:31 84 03/31/17 10:30 91 H 152/63 03/31/17 10:29 109 H 03/31/17 10:25 106 H 03/31/17 10:24 86 157/93 03/31/17 10:23 87 154/102 03/31/17 10:20 94 H 154/102 03/31/17 10:19 100 H 03/31/17 10:11 99 H 03/31/17 10:08 99 H 03/31/17 10:06 96 H 03/31/17 10:01 103 H 03/31/17 09:56 90 03/31/17 09:55 94 H 03/31/17 09:51 104 H 03/31/17 09:49 106 H 183/108 03/31/17 09:46 100 H 03/31/17 09:44 102 H 165/111 03/31/17 09:43 94 H 03/31/17 09:41 91 H 03/31/17 09:38 95 H 158/109 03/31/17 09:36 95 H 03/31/17 09:31 100 H 03/31/17 09:29 104 H 03/31/17 09:26 103 H 03/31/17 09:21 92 H 03/31/17 09:16 94 H 03/31/17 09:11 100 H 03/31/17 09:06 161 H 03/31/17 09:04 03/31/17 09:00 66 03/31/17 08:59 81 03/31/17 08:55 99 H 03/31/17 08:53 93 H 03/31/17 08:49 108 H 03/31/17 08:46 95 H 03/31/17 08:44 91 H 03/31/17 08:39 100 H 03/31/17 08:38 87 03/31/17 08:34 96 H 03/31/17 08:29 99 H 03/31/17 08:24 99 H 03/31/17 08:19 92 H 03/31/17 08:14 99 H 03/31/17 08:09 84 03/31/17 08:04 84 03/31/17 08:01 97.4 F L 79 24 135/95 03/31/17 07:59 87 135/95 03/31/17 07:58 03/31/17 07:39 89 03/31/17 07:34 98 H 03/31/17 07:23 92 H 147/87 Pulse Ox 04/01/17 06:29 98 04/01/17 05:00 95 04/01/17 04:30 96 04/01/17 04:02 04/01/17 04:00 95 04/01/17 03:00 98 04/01/17 02:30 98 04/01/17 02:15 98 04/01/17 01:45 98 04/01/17 01:15 99 04/01/17 01:06 100 04/01/17 01:00 99 04/01/17 00:45 99 04/01/17 00:35 04/01/17 00:30 99 04/01/17 00:15 95 03/31/17 23:45 80 L 03/31/17 23:10 81 L 03/31/17 22:41 91 03/31/17 22:37 95 03/31/17 22:31 99 03/31/17 22:21 96 03/31/17 22:11 88 03/31/17 22:06 96 03/31/17 22:01 94 03/31/17 21:50 81 L 03/31/17 21:46 96 03/31/17 21:40 87 03/31/17 21:31 68 L 03/31/17 21:27 96 03/31/17 21:21 94 03/31/17 21:20 76 L 03/31/17 19:15 03/31/17 19:00 03/31/17 18:15 03/31/17 18:00 03/31/17 17:45 03/31/17 17:29 03/31/17 17:15 03/31/17 16:59 03/31/17 16:46 03/31/17 16:30 03/31/17 16:14 03/31/17 16:05 03/31/17 15:59 03/31/17 15:44 03/31/17 15:30 03/31/17 15:15 03/31/17 14:57 03/31/17 14:56 91 03/31/17 14:54 94 03/31/17 14:52 03/31/17 14:51 99 03/31/17 14:48 03/31/17 14:46 99 03/31/17 14:42 03/31/17 14:41 100 03/31/17 14:37 03/31/17 14:36 100 03/31/17 14:34 03/31/17 14:31 100 03/31/17 14:28 03/31/17 14:26 100 03/31/17 14:21 99 03/31/17 14:19 03/31/17 14:17 03/31/17 14:16 100 03/31/17 14:15 03/31/17 14:13 03/31/17 14:11 99 03/31/17 14:09 03/31/17 14:07 03/31/17 14:06 100 03/31/17 14:05 03/31/17 14:03 03/31/17 14:01 100 03/31/17 13:59 03/31/17 13:57 03/31/17 13:56 100 03/31/17 13:55 03/31/17 13:54 03/31/17 13:51 100 03/31/17 13:46 94 03/31/17 13:45 03/31/17 13:43 80 L 03/31/17 13:41 100 03/31/17 13:40 03/31/17 13:36 99 03/31/17 13:33 03/31/17 13:31 03/31/17 13:15 03/31/17 13:03 03/31/17 13:02 98 03/31/17 13:01 94 03/31/17 12:53 94 03/31/17 12:51 96 03/31/17 12:47 93 03/31/17 12:46 93 03/31/17 12:41 93 03/31/17 12:36 94 03/31/17 12:35 81 L 03/31/17 12:32 03/31/17 12:29 79 L 03/31/17 12:16 03/31/17 12:13 92 03/31/17 12:09 93 03/31/17 12:08 80 L 03/31/17 12:03 96 03/31/17 12:00 100 03/31/17 11:58 99 03/31/17 11:57 92 03/31/17 11:53 92 03/31/17 11:52 03/31/17 11:51 94 03/31/17 11:48 90 03/31/17 11:43 88 03/31/17 11:42 92 03/31/17 11:38 91 03/31/17 11:36 03/31/17 11:35 0 L 03/31/17 11:33 89 03/31/17 11:28 97 03/31/17 11:27 94 03/31/17 11:23 0 L 03/31/17 11:22 0 L 03/31/17 11:18 7 L 03/31/17 11:16 0 L 03/31/17 11:13 50 L 03/31/17 11:08 93 03/31/17 11:05 03/31/17 11:03 98 03/31/17 10:58 95 03/31/17 10:53 99 03/31/17 10:48 100 03/31/17 10:47 89 03/31/17 10:45 03/31/17 10:44 03/31/17 10:41 03/31/17 10:35 03/31/17 10:34 98 03/31/17 10:31 92 03/31/17 10:30 03/31/17 10:29 95 03/31/17 10:25 90 03/31/17 10:24 96 03/31/17 10:23 03/31/17 10:20 94 03/31/17 10:19 100 03/31/17 10:11 97 03/31/17 10:08 92 03/31/17 10:06 98 03/31/17 10:01 97 03/31/17 09:56 94 03/31/17 09:55 94 03/31/17 09:51 91 03/31/17 09:49 94 03/31/17 09:46 96 03/31/17 09:44 03/31/17 09:43 90 03/31/17 09:41 88 03/31/17 09:38 03/31/17 09:36 92 03/31/17 09:31 93 03/31/17 09:29 92 03/31/17 09:26 99 03/31/17 09:21 98 03/31/17 09:16 99 03/31/17 09:11 94 03/31/17 09:06 79 L 03/31/17 09:04 83 L 03/31/17 09:00 77 L 03/31/17 08:59 79 L 03/31/17 08:55 88 03/31/17 08:53 94 03/31/17 08:49 92 03/31/17 08:46 93 03/31/17 08:44 96 03/31/17 08:39 96 03/31/17 08:38 91 03/31/17 08:34 100 03/31/17 08:29 99 03/31/17 08:24 100 03/31/17 08:19 100 03/31/17 08:14 100 03/31/17 08:09 100 03/31/17 08:04 92 03/31/17 08:01 93 03/31/17 07:59 94 03/31/17 07:58 92 03/31/17 07:39 88 03/31/17 07:34 94 03/31/17 07:23 Intake and Output 03/31/17 04/01/17 04/01/17 22:59 06:59 14:59 Intake Total 300 750 Output Total 100 490 Balance 200 260 Intake: IV 300 750 Lactated Ringers 1,000 ml 125 @ 125 mls/hr IV DIRECT JOSE Rx#:[id number] Lactated Ringers 1,000 ml 625 @ 125 mls/hr IV DIRECT JOSE Rx#:[id number] Output: Urine 100 485 Indwelling Catheter 375 Uretheral ([place]) 100 Pad Count 5 Other: Total, Output Amount 100 Voiding Method Indwelling Catheter Weight 143.4 kg Estimated Blood Loss 1,000 - Exam Breasts: Present: normal Lungs: Absent: Clear to auscultation, Normal air movement (decreased on right ) Abdomen: Present: normal appearance, soft. Absent: distention, tenderness, guarding Vulva: both: normal Uterus: Present: normal, firm, fundal height at umbilicus. Absent: bogginess, tenderness Extremities: Present: normal, edema (1= edmea b/l). Absent: tenderness Deep Tendon Reflex Grade: Normal +2 Incision: Present: normal, dry, intact - Labs Labs: Abnormal lab results 03/31/17 03/31/17 04/01/17 Range/Units 10:11 10:11 00:02 WBC (4.5-11.0) K/mm3 MCH 26 L (28-32) pg RDW 18.3 H (13.2-15.2) % Seg Neuts % (Manual) (40.0-70.0) % Lymphocytes % (Manual) (13.4-35.0) % Seg Neutrophils # Man (1.8-7.7) K/mm3 Lymphocytes # (Manual) (1.2-5.4) K/mm3 D-Dimer 9484.24 H (0-234) ng/mlDDU Carbon Dioxide (22-30) mmol/L Creatinine 0.5 L (0.7-1.2) mg/dL Lactate Dehydrogenase 218 H (91-180) units/L Total Protein (6.3-8.2) g/dL Albumin (3.9-5) g/dL 04/01/17 04/01/17 Range/Units 00:02 00:02 WBC 17.5 H (4.5-11.0) K/mm3 MCH 26 L (28-32) pg RDW 18.7 H (13.2-15.2) % Seg Neuts % (Manual) 71.0 H (40.0-70.0) % Lymphocytes % (Manual) 2.0 L (13.4-35.0) % Seg Neutrophils # Man 12.4 H (1.8-7.7) K/mm3 Lymphocytes # (Manual) 0.4 L (1.2-5.4) K/mm3 D-Dimer (0-234) ng/mlDDU Carbon Dioxide 20 L (22-30) mmol/L Creatinine 0.6 L (0.7-1.2) mg/dL Lactate Dehydrogenase (91-180) units/L Total Protein 5.9 L (6.3-8.2) g/dL Albumin 2.7 L (3.9-5) g/dL
--- NOTE | 2017-04-01 09:25 | Progress Note ---
Subjective Date of service: 04/01/17 Principal diagnosis: s/p primary c/s secondary to arrest of descent with pneumonia Interval history: Patient seen post-op day 1, satisfied with anesthesia, pain controlled, not ambulating per MD instructions for PE. Objective - Constitutional Vitals: Vital Signs - 12hr 03/31/17 03/31/17 03/31/17 21:27 21:31 21:40 Temperature Pulse Rate 149 H 139 H 133 H Pulse Rate [ From Monitor] Pulse Rate [ None] Respiratory 20 56 H 52 H Rate Blood Pressure 196/99 120/91 138/94 O2 Sat by Pulse 96 68 L 87 Oximetry 03/31/17 03/31/17 03/31/17 21:46 21:50 22:01 Temperature Pulse Rate 133 H 128 H 131 H Pulse Rate [ From Monitor] Pulse Rate [ None] Respiratory 19 39 H 24 Rate Blood Pressure 101/57 156/100 141/105 O2 Sat by Pulse 96 81 L 94 Oximetry 03/31/17 03/31/17 03/31/17 22:06 22:11 22:21 Temperature Pulse Rate 126 H 128 H 129 H Pulse Rate [ From Monitor] Pulse Rate [ None] Respiratory 18 22 19 Rate Blood Pressure 124/56 117/46 126/64 O2 Sat by Pulse 96 88 96 Oximetry 03/31/17 03/31/17 03/31/17 22:31 22:37 22:41 Temperature Pulse Rate 136 H 131 H 134 H Pulse Rate [ From Monitor] Pulse Rate [ None] Respiratory 21 20 24 Rate Blood Pressure 103/60 124/43 124/43 O2 Sat by Pulse 99 95 91 Oximetry 03/31/17 03/31/17 04/01/17 23:10 23:45 00:15 Temperature Pulse Rate Pulse Rate [ From Monitor] Pulse Rate [ 141 H 137 H None] Respiratory 34 H 43 H Rate Blood Pressure 139/82 145/95 O2 Sat by Pulse 81 L 80 L 95 Oximetry 04/01/17 04/01/17 04/01/17 00:30 00:35 00:45 Temperature 98.7 F Pulse Rate Pulse Rate [ From Monitor] Pulse Rate [ 134 H 134 H None] Respiratory 56 H 56 H Rate Blood Pressure 144/81 162/93 O2 Sat by Pulse 99 99 Oximetry 04/01/17 04/01/17 04/01/17 01:00 01:06 01:15 Temperature Pulse Rate Pulse Rate [ 134 H From Monitor] Pulse Rate [ 136 H 136 H None] Respiratory 53 H 48 H 57 H Rate Blood Pressure 147/82 162/93 O2 Sat by Pulse 99 100 99 Oximetry 04/01/17 04/01/17 04/01/17 01:45 02:15 02:30 Temperature Pulse Rate Pulse Rate [ From Monitor] Pulse Rate [ 138 H 132 H 131 H None] Respiratory 53 H 50 H 55 H Rate Blood Pressure 147/89 130/78 141/77 O2 Sat by Pulse 98 98 98 Oximetry 04/01/17 04/01/17 04/01/17 03:00 04:00 04:02 Temperature 99.2 F Pulse Rate Pulse Rate [ From Monitor] Pulse Rate [ 129 H 131 H None] Respiratory 60 H 35 H 52 H Rate Blood Pressure 134/102 145/72 O2 Sat by Pulse 98 95 Oximetry 04/01/17 04/01/17 04/01/17 04:30 05:00 06:29 Temperature Pulse Rate Pulse Rate [ From Monitor] Pulse Rate [ 133 H 130 H 121 H None] Respiratory 34 H 47 H 49 H Rate Blood Pressure 159/72 126/85 O2 Sat by Pulse 96 95 98 Oximetry 04/01/17 08:00 Temperature 98.8 F Pulse Rate Pulse Rate [ From Monitor] Pulse Rate [ None] Respiratory Rate Blood Pressure O2 Sat by Pulse Oximetry - Labs CBC & Chem 7: 04/01/17 00:02 04/01/17 00:02 Labs: Abnormal lab results 03/31/17 03/31/17 04/01/17 Range/Units 10:11 10:11 00:02 WBC (4.5-11.0) K/mm3 MCH 26 L (28-32) pg RDW 18.3 H (13.2-15.2) % Seg Neuts % (Manual) (40.0-70.0) % Lymphocytes % (Manual) (13.4-35.0) % Seg Neutrophils # Man (1.8-7.7) K/mm3 Lymphocytes # (Manual) (1.2-5.4) K/mm3 D-Dimer 9484.24 H (0-234) ng/mlDDU Carbon Dioxide (22-30) mmol/L Creatinine 0.5 L (0.7-1.2) mg/dL Lactate Dehydrogenase 218 H (91-180) units/L Total Protein (6.3-8.2) g/dL Albumin (3.9-5) g/dL 04/01/17 04/01/17 Range/Units 00:02 00:02 WBC 17.5 H (4.5-11.0) K/mm3 MCH 26 L (28-32) pg RDW 18.7 H (13.2-15.2) % Seg Neuts % (Manual) 71.0 H (40.0-70.0) % Lymphocytes % (Manual) 2.0 L (13.4-35.0) % Seg Neutrophils # Man 12.4 H (1.8-7.7) K/mm3 Lymphocytes # (Manual) 0.4 L (1.2-5.4) K/mm3 D-Dimer (0-234) ng/mlDDU Carbon Dioxide 20 L (22-30) mmol/L Creatinine 0.6 L (0.7-1.2) mg/dL Lactate Dehydrogenase (91-180) units/L Total Protein 5.9 L (6.3-8.2) g/dL Albumin 2.7 L (3.9-5) g/dL
[2017-04-01] MEDS: FEOSOL PO SCH (09:46)
[2017-04-01] MEDS: ROCEPHIN/NS 1 GM/50 ML 1 GM/50 ML BAG IV SCH (09:47)
[2017-04-01] MEDS: ZITHROMAX 500 MG in NACL 0.9% 250ML 250 ML IV SCH (09:50)
[2017-04-01] MEDS ORDERED: NACL 0.9% 1000 ML 1,000 ML IV ONE (10:00)
[2017-04-01] MEDS: LOVENOX SUB-Q SCH ×2 (10:02→21:40)
[2017-04-01 11:49] LABS: ISTAT Base Excess -4; ISTAT HCO3 21.7; ISTAT PCO2 39.4 (35-45); ISTAT PH 7.349 (7.35-7.45); ISTAT PO2 133 (80-105); ISTAT SO2 99; ISTAT TCO2 23
--- NOTE | 2017-04-01 12:09 | Progress Note ---
Assessment and Plan Assessment and plan: 26-year-old woman who is postoperative day 1 status post section who is in the ICU, she apparently had an episode of ventricular tachycardia in the recovery room, she is currently in ICU on supplemental oxygen Acute hypoxic respiratory failure Most likely due to bilateral pneumonia, treat pneumonia, continue oxygen supplementation Pneumonia most likely due to gram-positive bacteria Empiric antibiotics have been started today History of PE CT angiogram was negative for PE on this admission, continue Lovenox for PE prophylaxis X Ventricular tachycardia Currently patient has sinus tachycardia, apparently she had short runs of ventricular tachycardia in the recovery room, as well as bradycardia but I'm unable to find any EKG or strips to confirm this Cardiology consult, obtain magnesium levels A levels and thyroid function tests DVT prophylaxis Patient is fully anticoagulated Case was discussed with cardiology and the patient The high probability of a clinically significant, sudden or life threatening deterioration of the [cardiovascular, pulmonary and hematologic] system(s) required my full and direct attention, intervention and personal management. The aggregate critical care time was [33] minutes. This time is in addition to time spent performing reported procedures but includes the following: [] Data Review and interpretation [] Patient assessment and monitoring of vital signs [] Documentation [] Medication orders and management History Interval history: She continues to have shortness of breath on exertion, and incisional pain along her section incision. Hospitalist Physical - Physical exam Narrative exam: General: Appears to be in mild distress HEENT: MMM, EOMI cardiac: S1-S2 heard lungs: clear to auscultation, abdomen: soft, nontender, nondistended bowel sounds positive extremities: no edema clubbing or cyanosis Skin: no rash or lesion Neuro: no focal deficit Psych: appropriate behavior and mood, cognition intact - Constitutional Vitals: Temp Pulse Resp BP Pulse Ox 98.8 F 121 H 49 H 126/85 100 04/01/17 08:00 04/01/17 06:29 04/01/17 06:29 04/01/17 06:29 04/01/17 10:11 General appearance: Present: mild distress Results - Labs CBC & Chem 7: 04/01/17 13:32 04/01/17 00:02 Labs: Laboratory Last Values WBC 17.5 K/mm3 (4.5-11.0) H 04/01/17 00:02 RBC 4.43 M/mm3 (3.65-5.03) 07/12/17 00:02 Hgb 11.6 gm/dl (10.1-14.3) 04/01/17 00:02 Hct 35.4 % (30.3-42.9) 04/01/17 00:02 MCV 80 fl (79-97) 04/01/17 00:02 MCH 26 pg (28-32) L 04/01/17 00:02 MCHC 33 % (30-34) 04/01/17 00:02 RDW 18.7 % (13.2-15.2) H 04/01/17 00:02 Plt Count 205 K/mm3 (140-440) 04/01/17 00:02 Add Manual Diff Complete 04/01/17 00:02 Total Counted 100 04/01/17 00:02 Seg Neutrophils % [employer] 04/01/17 00:02 Seg Neuts % (Manual) 71.0 % (40.0-70.0) H 04/01/17 00:02 Band Neutrophils % 22.0 % 04/01/17 00:02 Lymphocytes % (Manual) 2.0 % (13.4-35.0) L 04/01/17 00:02 Reactive Lymphs % (Man) 0 % 04/01/17 00:02 Monocytes % (Manual) 4.0 % (0.0-7.3) 04/01/17 00:02 Eosinophils % (Manual) 0 % (0.0-4.3) 04/01/17 00:02 Basophils % (Manual) 0 % (0.0-1.8) 04/01/17 00:02 Metamyelocytes % 0 % 04/01/17 00:02 Myelocytes % 1.0 % 04/01/17 00:02 Promyelocytes % 0 % 04/01/17 00:02 Blast Cells % 0 % 04/01/17 00:02 Nucleated RBC % Not Reportable 04/01/17 00:02 Seg Neutrophils # Man 12.4 K/mm3 (1.8-7.7) H 04/01/17 00:02 Band Neutrophils # 3.9 K/mm3 04/01/17 00:02 Lymphocytes # (Manual) 0.4 K/mm3 (1.2-5.4) L 04/01/17 00:02 Abs React Lymphs (Man) 0.0 K/mm3 04/01/17 00:02 Monocytes # (Manual) 0.7 K/mm3 (0.0-0.8) 04/01/17 00:02 Eosinophils # (Manual) 0.0 K/mm3 (0.0-0.4) 04/01/17 00:02 Basophils # (Manual) 0.0 K/mm3 (0.0-0.1) 04/01/17 00:02 Metamyelocytes # 0.0 K/mm3 04/01/17 00:02 Myelocytes # 0.2 K/mm3 04/01/17 00:02 Promyelocytes # 0.0 K/mm3 04/01/17 00:02 Blast Cells # 0.0 K/mm3 04/01/17 00:02 WBC Morphology Not Reportable 04/01/17 00:02 Hypersegmented Neuts Not Reportable 04/01/17 00:02 Hyposegmented Neuts Not Reportable 04/01/17 00:02 Hypogranular Neuts Not Reportable 04/01/17 00:02 Smudge Cells Not Reportable 04/01/17 00:02 Toxic Granulation Not Reportable 04/01/17 00:02 Toxic Vacuolation Not Reportable 04/01/17 00:02 Dohle Bodies Not Reportable 04/01/17 00:02 Pelger-Huet Anomaly Not Reportable 04/01/17 00:02 Prosper Rods Not Reportable 04/01/17 00:02 Platelet Estimate Consistent w auto 04/01/17 00:02 Clumped Platelets Not Reportable 04/01/17 00:02 Plt Clumps, EDTA Not Reportable 04/01/17 00:02 Large Platelets Not Reportable 04/01/17 00:02 Giant Platelets Not Reportable 04/01/17 00:02 Platelet Satelliting Not Reportable 04/01/17 00:02 Plt Morphology Comment Not Reportable 04/01/17 00:02 RBC Morphology Not Reportable 04/01/17 00:02 Dimorphic RBCs Not Reportable 04/01/17 00:02 Polychromasia Few 04/01/17 00:02 Hypochromasia Not Reportable 04/01/17 00:02 Poikilocytosis Not Reportable 04/01/17 00:02 Anisocytosis 1+ 04/01/17 00:02 Microcytosis Not Reportable 04/01/17 00:02 Macrocytosis Not Reportable 04/01/17 00:02 Spherocytes Not Reportable 04/01/17 00:02 Pappenheimer Bodies Not Reportable 04/01/17 00:02 Sickle Cells Not Reportable 04/01/17 00:02 Target Cells Not Reportable 04/01/17 00:02 Tear Drop Cells Not Reportable 04/01/17 00:02 Ovalocytes Not Reportable 04/01/17 00:02 Helmet Cells Not Reportable 04/01/17 00:02 Nieto-[place]gema Bodies Not Reportable 04/01/17 00:02 [place] Rings Not Reportable 04/01/17 00:02 Hien Cells Not Reportable 04/01/17 00:02 Bite Cells Not Reportable 04/01/17 00:02 Crenated Cell Not Reportable 04/01/17 00:02 Elliptocytes Not Reportable 04/01/17 00:02 Acanthocytes (Spur) Not Reportable 04/01/17 00:02 Rouleaux Not Reportable 04/01/17 00:02 Hemoglobin C Crystals Not Reportable 04/01/17 00:02 Schistocytes Not Reportable 04/01/17 00:02 Malaria parasites Not Reportable 04/01/17 00:02 Mikal Bodies Not Reportable 04/01/17 00:02 Hem Pathologist Commnt No 04/01/17 00:02 D-Dimer 9484.24 ng/mlDDU (0-234) H 04/01/17 00:02 POC ABG pH 7.349 (7.35-7.45) L 04/01/17 10:11 POC ABG pCO2 39.4 (35-45) 04/01/17 10:11 POC ABG pO2 133 (80-105) H 04/01/17 10:11 POC ABG HCO3 21.7 04/01/17 10:11 POC ABG Total CO2 23 04/01/17 10:11 POC ABG O2 Sat 99 04/01/17 10:11 POC ABG Base Excess -4 04/01/17 10:11 FiO2 50 % 04/01/17 10:11 Sodium 138 mmol/L (137-145) 04/01/17 00:02 Potassium 4.5 mmol/L (3.6-5.0) 04/01/17 00:02 Chloride 103.8 mmol/L (98-107) 04/01/17 00:02 Carbon Dioxide 20 mmol/L (22-30) L 04/01/17 00:02 Anion Gap 19 mmol/L 04/01/17 00:02 BUN 10 mg/dL (7-17) 04/01/17 00:02 Creatinine 0.6 mg/dL (0.7-1.2) L 04/01/17 00:02 Estimated GFR > 60 ml/min 04/01/17 00:02 BUN/Creatinine Ratio 16.66 % 04/01/17 00:02 Glucose 90 mg/dL (65-100) 04/01/17 00:02 Uric Acid 4.6 mg/dL (3.5-7.6) 04/01/17 00:02 Calcium 8.6 mg/dL (8.4-10.2) 04/01/17 00:02 Total Bilirubin 0.50 mg/dL (0.1-1.2) 04/01/17 00:02 AST 19 units/L (5-40) 04/01/17 00:02 ALT 9 units/L (7-56) 04/01/17 00:02 Alkaline Phosphatase 122 units/L (35-129) 04/01/17 00:02 Lactate Dehydrogenase 218 units/L (91-180) H 03/31/17 10:11 Total Protein 5.9 g/dL (6.3-8.2) L 04/01/17 00:02 Albumin 2.7 g/dL (3.9-5) L 04/01/17 00:02 Albumin/Globulin Ratio 0.8 % 04/01/17 00:02 Urine Color Yellow (Yellow) 03/31/17 14:00 Urine Turbidity Clear (Clear) 03/31/17 14:00 Urine pH 6.0 (5.0-7.0) 03/31/17 14:00 Ur Specific [place] 1.018 (1.003-1.030) 03/31/17 14:00 Urine Protein 30 mg/dl mg/dL (Negative) 03/31/17 14:00 Urine Glucose (UA) Neg mg/dL (Negative) 03/31/17 14:00 Urine Ketones 80 mg/dL (Negative) 03/31/17 14:00 Urine Blood Neg (Negative) 03/31/17 14:00 Urine Nitrite Neg (Negative) 03/31/17 14:00 Urine Bilirubin Neg (Negative) 03/31/17 14:00 Urine Urobilinogen < 2.0 mg/dL (<2.0) 03/31/17 14:00 Ur Leukocyte Esterase Neg (Negative) 03/31/17 14:00 Urine WBC (Auto) 1.0 /HPF (0.0-6.0) 03/31/17 14:00 Urine RBC (Auto) 1.0 /HPF (0.0-6.0) 03/31/17 14:00 U Epithel Cells (Auto) 1.0 /HPF (0-13.0) 03/31/17 14:00 Urine Mucus 1+ /HPF 03/31/17 14:00 Blood Type B POSITIVE 03/30/17 22:27 Antibody Screen TNR 03/30/17 22:27 ASHLEY Antibody Screen Negative 03/30/17 22:27 - Imaging and Cardiology CT scan - chest: image reviewed (no pulmonary emboli seen, bilateral infiltrates noted)
[2017-04-01 14:06] LABS: Hematocrit 31.4 % (30.3-42.9); Hemoglobin 10.2 gm/dl (10.1-14.3)
--- NOTE | 2017-04-01 14:28 | Consultation ---
History of Present Illness Consult date: 04/01/17 Requesting physician: CARLENE SAMANO Reason for consult: hypoxemia, abnormal CXR/CT History of present illness: Patient is a 26-year-old female who was noted to develop tachycardia and dyspnea with low O2 sat about 30 minutes after and was still in the recovery room with these symptoms, patient was also noted to have a run of V. tach during the and has past history of pulmonary embolism. There was no history of chest pain and no history of fever or chills nausea or vomiting and the patient was transferred to the ICU for closer monitoring. CTA was negative for PE- the report shows bilateral infiltrates worse on the right. Unable to pull the films. Patient seen and examined. Vitals, labs, medications, chart reviewed. Past History Past Medical History: other (PULMONARY EMBOLISM) Past Surgical History: Social history: no significant social history Family history: no significant family history Medications and Allergies Allergies Allergy/AdvReac Type Severity Reaction Status Date / Time No Known Allergies Allergy Unverified 01/24/17 07:00 Home Medications Medication Instructions Recorded Confirmed Last Taken Type Enoxaparin [Lovenox] 40 mg SQ Q12HR 01/24/17 03/31/17 03/29/17 21:30 History Ferrous Sulfate [Feosol] 325 mg PO QDAY 01/24/17 03/31/17 03/30/17 11:00 History Vitamin 1 tab PO QDAY 01/24/17 03/31/17 03/30/17 11:00 History Active Meds: Active Medications Acetaminophen/Hydrocodone Bitart ([place] 5/325) 1 each PO Q6H PRN PRN Reason: Pain, Moderate (4-6) Diphenhydramine HCl (Benadryl) 25 mg IV Q6H PRN PRN Reason: Itching Diphtheria/Tetanus/Acell Pertussis (Boostrix) 0.5 ml IM .ONCE ONE Stop: 04/02/17 06:01 Enoxaparin Sodium (Lovenox) 40 mg SUB-Q BID [facility] Last Admin: 04/01/17 10:02 Dose: 40 mg Ferrous Sulfate (Feosol) 325 mg PO QDAY [facility] Last Admin: 04/01/17 09:46 Dose: 325 mg Hydralazine HCl (Apresoline) 10 mg IV Q30MIN PRN PRN Reason: Blood Pressure Last Admin: 03/31/17 10:23 Dose: 10 mg Hydrocortisone Acetate (Anucort-Hc) 25 mg MN BID PRN PRN Reason: Hemorrhoids Lactated Ringer's (Lactated Ringers) 1,000 mls @ 125 mls/hr IV DIRECT JOSE Last Admin: 03/31/17 14:33 Dose: 125 mls/hr Lactated Ringer's (Lactated Ringers) 1,000 mls @ 2,250 mls/hr IV PREOP JOSE Stop: 04/01/17 19:27 Oxytocin/Sodium Chloride (Pitocin/Ns 20 Unit/1000ml Drip) 20 units in 1,000 mls @ 250 mls/hr IV DIRECT JOSE Last Admin: 03/31/17 22:05 Dose: 250 mls/hr Azithromycin 500 mg/ Sodium (Chloride) 250 mls @ 250 mls/hr IV Q24HR JOSE Last Admin: 04/01/17 09:50 Dose: 250 mls/hr Ceftriaxone Sodium (Rocephin/Ns 1 Gm/50 Ml) 1 gm in 50 mls @ 100 mls/hr IV Q24HR JOSE PRN Reason: Protocol Last Admin: 04/01/17 09:47 Dose: 100 mls/hr Ibuprofen (Motrin) 800 mg PO Q6H PRN PRN Reason: Pain, Mild (1-3) Ketorolac Tromethamine (Toradol) 30 mg IV Q6H PRN PRN Reason: Pain, Moderate (4-6) Stop: 04/05/17 21:48 Magnesium Hydroxide (Milk Of Magnesia) 30 ml PO QHS PRN PRN Reason: Constip Unrelieved By Senna Measles/Mumps/Rubella Vaccine Live (M-M-R Ii Vaccine) 0.5 ml SUB-Q .ONCE ONE Stop: 04/01/17 22:38 Mineral Oil (Mineral Oil) 30 ml PO QHS PRN PRN Reason: Constipation Morphine Sulfate (Morphine) 2 mg IV Q4H PRN PRN Reason: Pain, Moderate (4-6) Last Admin: 04/01/17 00:04 Dose: 2 mg Morphine Sulfate (Morphine Solar Crew Member 30mg/30ml) 0 mg IV DIRECT JOSE PRN Reason: Protocol Last Admin: 04/01/17 01:45 Dose: 1.5 cart Multi-Ingredient Ointment (Lansinoh) 1 applic TP PRN PRN PRN Reason: dryness/cracking Multivitamins/Iron/Calcium ( Vitamin) 1 each PO QDAY JOSE Naloxone HCl (Narcan 0.4 Mg/1 Ml) 0.1 mg IV Q2MIN PRN PRN Reason: Res Rate </= 8 or 02 SAT < 92% Ondansetron HCl (Zofran) 4 mg IV Q8H PRN PRN Reason: Nausea And Vomiting Promethazine HCl (Phenergan) 25 mg MN Q6H PRN PRN Reason: N/V IF NPO AND NO IV ACCESS Senna (Senokot) 17.2 mg PO QHS PRN PRN Reason: Constipation Simethicone (Mylicon) 80 mg PO Q6H PRN PRN Reason: Gas pain Sodium Chloride (Sodium Chloride Flush Syringe 10 Ml) 10 ml IV PRN PRN PRN Reason: LINE FLUSH Witch Zoe/Glycerin (Tucks Pad) 1 each TP PRN PRN PRN Reason: Hemorrhoids/cleansing/soothing Zolpidem Tartrate (Ambien) 10 mg PO QHS PRN PRN Reason: Insomnia Last Admin: 03/31/17 00:19 Dose: 10 mg Review of Systems All systems: negative (anxiety, thirst, weakness) Physical Examination Vital signs: Vital Signs Temp Pulse Resp BP Pulse Ox 98.0 F 96 H 20 132/73 97 03/30/17 22:31 03/30/17 22:31 03/30/17 22:31 03/30/17 22:31 03/30/17 22:31 General appearance: appears uncomfortable Eyes: non-icteric ENT: oropharynx dry Neck: supple, no lymphadenopathy, no JVD Effort: normal, mildly labored Ascultation: Bilateral: clear, diminished breath sounds Cardiovascular: other (tachycardia, no murmurs, ) Gastrointestinal: normoactive bowel sounds, hypoactive bowel sounds, soft, tender (mildy , dry dressing suprpubically, [place] catheter) Integumentary: normal Extremities: no cyanosis, no edema, pink and warm, pulses normal Musculoskeletal: no deformities normal mental status, non-focal exam, pupils equal and round, CN II-XII normal Results - Laboratory Findings CBC and BMP: 04/01/17 13:32 04/01/17 00:02 ABG POC ABG pH 7.349 (7.35-7.45) L 04/01/17 10:11 POC ABG pCO2 39.4 (35-45) 04/01/17 10:11 POC ABG pO2 133 (80-105) H 04/01/17 10:11 POC ABG HCO3 21.7 04/01/17 10:11 POC ABG Total CO2 23 04/01/17 10:11 POC ABG O2 Sat 99 04/01/17 10:11 PT/INR, D-dimer D-Dimer 9484.24 ng/mlDDU (0-234) H 04/01/17 00:02 Abnormal lab findings: Abnormal Labs 03/30/17 03/31/17 03/31/17 22:27 10:11 10:11 WBC MCV 78 L MCH 26 L 26 L RDW 18.7 H 18.3 H Seg Neuts % (Manual) Lymphocytes % (Manual) Seg Neutrophils # Man Lymphocytes # (Manual) D-Dimer POC ABG pH POC ABG pO2 Carbon Dioxide Creatinine 0.5 L Lactate Dehydrogenase 218 H Total Protein Albumin 04/01/17 04/01/17 04/01/17 00:02 00:02 00:02 WBC 17.5 H MCV MCH 26 L RDW 18.7 H Seg Neuts % (Manual) 71.0 H Lymphocytes % (Manual) 2.0 L Seg Neutrophils # Man 12.4 H Lymphocytes # (Manual) 0.4 L D-Dimer 9484.24 H POC ABG pH POC ABG pO2 Carbon Dioxide 20 L Creatinine 0.6 L Lactate Dehydrogenase Total Protein 5.9 L Albumin 2.7 L 04/01/17 10:11 WBC MCV MCH RDW Seg Neuts % (Manual) Lymphocytes % (Manual) Seg Neutrophils # Man Lymphocytes # (Manual) D-Dimer POC ABG pH 7.349 L POC ABG pO2 133 H Carbon Dioxide Creatinine Lactate Dehydrogenase Total Protein Albumin - Diagnostic Findings Chest x-ray: report reviewed CT scan - chest: report reviewed Assessment and Plan - Patient Problems (1) Pulmonary infiltrate present on computed tomography Current Visit: Yes Status: Acute Plan to address problem: See differentials as discussed (2) Dyspnea Current Visit: Yes Status: Acute Qualifiers: Dyspnea type: D Plan to address problem: Differentials include aspiration pneumonitis, peripartum cardiomyopathy with pulmonary edema( though the location and the asymmetry could argue against this) . Get 2D echocardiogram- hold off on diuresis for 24 hours in view of recent contrast administration ABG Supplemental oxygen to keep O2 sats>92% Incentive spirometry and prn bronchodilators if indicated (3) Tachycardia Current Visit: Yes Status: Acute Plan to address problem: Sinus probably physiologic. Awaiting 2 D echocardiogram to r/o cardiomyopathy Continue with therapeutic doses of lovenox
--- NOTE | 2017-04-01 14:48 | Consultation ---
History of Present Illness Consult date: 04/01/17 Requesting physician: YESSICA MARTINEZ Consult reason: tachycardia History of present illness: The patient is a 26YO female with a past medical history significant for PE in 2013 secondary to control (completed therapy with ~6 months of coumadin per pt report). She is previously unknown to our practice. She is 1 day post . She delivered her baby yesterday via Cesarian section and was was noted to develop tachycardia and dyspnea with low O2 sats about 30 minutes after C- section while in the recovery room. She also reportedly had a run of VT although review of her chart and telemetry reveals only sinus tachycardia, HR 130s, with no arrhythmias. On evaluation, she c/o some dyspnea. She denies any chest pain, palpitations, n/v, diaphoresis, dizziness, or syncope. She underwent chest CTA which was negative for PE. Past History Past Medical History: other (PULMONARY EMBOLISM) Past Surgical History: Social history: no significant social history Family history: no significant family history Medications and Allergies Allergies Allergy/AdvReac Type Severity Reaction Status Date / Time No Known Allergies Allergy Unverified 01/24/17 07:00 Home Medications Medication Instructions Recorded Confirmed Last Taken Type Enoxaparin [Lovenox] 40 mg SQ Q12HR 01/24/17 03/31/17 03/29/17 21:30 History Ferrous Sulfate [Feosol] 325 mg PO QDAY 01/24/17 03/31/17 03/30/17 11:00 History Vitamin 1 tab PO QDAY 01/24/17 03/31/17 03/30/17 11:00 History Active Meds: Active Medications Acetaminophen/Hydrocodone Bitart ([place] 5/325) 1 each PO Q6H PRN PRN Reason: Pain, Moderate (4-6) Diphenhydramine HCl (Benadryl) 25 mg IV Q6H PRN PRN Reason: Itching Diphtheria/Tetanus/Acell Pertussis (Boostrix) 0.5 ml IM .ONCE ONE Stop: 04/02/17 06:01 Enoxaparin Sodium (Lovenox) 40 mg SUB-Q BID [facility] Last Admin: 04/01/17 10:02 Dose: 40 mg Ferrous Sulfate (Feosol) 325 mg PO QDAY [facility] Last Admin: 04/01/17 09:46 Dose: 325 mg Furosemide (Lasix) 40 mg IV ONCE ONE Stop: 04/01/17 15:01 Hydralazine HCl (Apresoline) 10 mg IV Q30MIN PRN PRN Reason: Blood Pressure Last Admin: 03/31/17 10:23 Dose: 10 mg Hydrocortisone Acetate (Anucort-Hc) 25 mg RI BID PRN PRN Reason: Hemorrhoids Lactated Ringer's (Lactated Ringers) 1,000 mls @ 125 mls/hr IV DIRECT JOSE Last Admin: 03/31/17 14:33 Dose: 125 mls/hr Lactated Ringer's (Lactated Ringers) 1,000 mls @ 2,250 mls/hr IV PREOP JOSE Stop: 04/01/17 19:27 Oxytocin/Sodium Chloride (Pitocin/Ns 20 Unit/1000ml Drip) 20 units in 1,000 mls @ 250 mls/hr IV DIRECT JOSE Last Admin: 03/31/17 22:05 Dose: 250 mls/hr Azithromycin 500 mg/ Sodium (Chloride) 250 mls @ 250 mls/hr IV Q24HR JOSE Last Admin: 04/01/17 09:50 Dose: 250 mls/hr Ceftriaxone Sodium (Rocephin/Ns 1 Gm/50 Ml) 1 gm in 50 mls @ 100 mls/hr IV Q24HR JOSE PRN Reason: Protocol Last Admin: 04/01/17 09:47 Dose: 100 mls/hr Ibuprofen (Motrin) 800 mg PO Q6H PRN PRN Reason: Pain, Mild (1-3) Ketorolac Tromethamine (Toradol) 30 mg IV Q6H PRN PRN Reason: Pain, Moderate (4-6) Stop: 04/05/17 21:48 Magnesium Hydroxide (Milk Of Magnesia) 30 ml PO QHS PRN PRN Reason: Constip Unrelieved By Senna Measles/Mumps/Rubella Vaccine Live (M-M-R Ii Vaccine) 0.5 ml SUB-Q .ONCE ONE Stop: 04/01/17 22:38 Mineral Oil (Mineral Oil) 30 ml PO QHS PRN PRN Reason: Constipation Morphine Sulfate (Morphine) 2 mg IV Q4H PRN PRN Reason: Pain, Moderate (4-6) Last Admin: 04/01/17 00:04 Dose: 2 mg Morphine Sulfate (Morphine Air Intercept Controller Supervisor 30mg/30ml) 0 mg IV DIRECT JOSE PRN Reason: Protocol Last Admin: 04/01/17 01:45 Dose: 1.5 cart Multi-Ingredient Ointment (Lansinoh) 1 applic TP PRN PRN PRN Reason: dryness/cracking Multivitamins/Iron/Calcium ( Vitamin) 1 each PO QDAY JOSE Naloxone HCl (Narcan 0.4 Mg/1 Ml) 0.1 mg IV Q2MIN PRN PRN Reason: Res Rate </= 8 or 02 SAT < 92% Ondansetron HCl (Zofran) 4 mg IV Q8H PRN PRN Reason: Nausea And Vomiting Promethazine HCl (Phenergan) 25 mg RI Q6H PRN PRN Reason: N/V IF NPO AND NO IV ACCESS Senna (Senokot) 17.2 mg PO QHS PRN PRN Reason: Constipation Simethicone (Mylicon) 80 mg PO Q6H PRN PRN Reason: Gas pain Sodium Chloride (Sodium Chloride Flush Syringe 10 Ml) 10 ml IV PRN PRN PRN Reason: LINE FLUSH Witch Zoe/Glycerin (Tucks Pad) 1 each TP PRN PRN PRN Reason: Hemorrhoids/cleansing/soothing Zolpidem Tartrate (Ambien) 10 mg PO QHS PRN PRN Reason: Insomnia Last Admin: 03/31/17 00:19 Dose: 10 mg Review of Systems All systems: negative Cardiovascular: shortness of breath, no chest pain, no orthopnea, no palpitations, no rapid/irregular heart beat, no edema Respiratory: shortness of breath, no cough, no congestion, no wheezing, no pain on inspiration Physical Examination Vital Signs Temp Pulse Resp BP Pulse Ox 98.0 F 96 H 20 132/73 97 03/30/17 22:31 03/30/17 22:31 03/30/17 22:31 03/30/17 22:31 03/30/17 22:31 General appearance: no acute distress HEENT: Positive: PERRL, Normocephaly, Mucus Membranes Moist Neck: Positive: neck supple, trachea midline Cardiac: Positive: S1/S2, Systolic Murmur (Grade I/), Tachycardia Lungs: Positive: clear to auscultation Neuro: Positive: Grossly Intact, Cranial Nerve 2-12 Intact Abdomen: Positive: Soft, Active Bowel Sounds Incision: Incision Site () Musculoskeletal: No Fluid Collection, No Pain, Normal Range of Motion Extremities: Absent: edema Results 04/01/17 13:32 04/01/17 00:02 Cardiac Enzymes 04/01/17 Range/Units 00:02 AST 19 (5-40) units/L CBC 04/01/17 04/01/17 Range/Units 00:02 13:32 WBC 17.5 H (4.5-11.0) K/mm3 RBC 4.43 (3.65-5.03) M/mm3 Hgb 11.6 10.2 (10.1-14.3) gm/dl Hct 35.4 31.4 (30.3-42.9) % Plt Count 205 (140-440) K/mm3 Comprehensive Metabolic Panel 04/01/17 Range/Units 00:02 Sodium 138 (137-145) mmol/L Potassium 4.5 (3.6-5.0) mmol/L Chloride 103.8 (98-107) mmol/L Carbon Dioxide 20 L (22-30) mmol/L BUN 10 (7-17) mg/dL Creatinine 0.6 L (0.7-1.2) mg/dL Glucose 90 (65-100) mg/dL Calcium 8.6 (8.4-10.2) mg/dL AST 19 (5-40) units/L ALT 9 (7-56) units/L Alkaline Phosphatase 122 (35-129) units/L Total Protein 5.9 L (6.3-8.2) g/dL Albumin 2.7 L (3.9-5) g/dL - Imaging and Cardiology Echo: pending EKG: report reviewed, image reviewed EKG interpretations - Telemetry EKG Rhythm: Sinus Tachycardia - EKG Sinus rhythms and dysrhythmias: sinus tachycardia Assessment and Plan Assessment: Sinus tachycardia ? VT Dyspnea / hypoxia - chest CTA negative for PE but report shows bilateral infiltrates. HTN Leukocytosis Post-, s/p 03/31/2017 Plan: Obtain echo. Obtain serum Mg and thyroid profile. Initiate labetalol, 100mg PO BID. Hold for HR <60 and/or SBP <100. Cont telemetry. Assessment and plan reviewed with pt at bedside. The patient has been seen in conjunction with Dr. Montez who agrees with the assessment and plan of care.
[2017-04-01] MEDS ORDERED: LASIX IV ONE (15:00)
[2017-04-01] MEDS: NORMODYNE PO SCH (16:10)
[2017-04-01] MEDS: PRENATAL VITAMIN PO SCH (16:10)
[2017-04-01] MEDS ORDERED: M-M-R II VACCINE SUB-Q ONE (22:37)
[2017-04-02] MEDS: NORMODYNE PO SCH ×3 (04:37→20:05)
[2017-04-02] MEDS ORDERED: BOOSTRIX IM ONE (06:00)
--- NOTE | 2017-04-02 08:51 | Progress Note ---
Assessment and Plan Assessment and plan: 26-year-old woman who is postoperative day 1 status post section who is in the ICU, she apparently had an episode of ventricular tachycardia in the recovery room, she is currently in ICU on supplemental oxygen Acute hypoxic respiratory failure Most likely due to bilateral pneumonia, treat pneumonia, continue oxygen supplementation Pneumonia most likely due to gram-positive bacteria continue Empiric antibiotics pulmonary consult appreciated Acute systolic CHF with pulmonary vascular congestion * PPCM * Cardiology but appreciated, * She was warned of the risk of recurrence if she's having another child in the future * And medications were adjusted,, IV Lasix was initiated, * She was warned that she cannot breast-feed on the medication she is on at this time. She is to pump and dump History of PE CT angiogram was negative for PE on this admission, continue Lovenox for VTE prophylaxis Ventricular tachycardia/ sinus tachycardia Currently patient has sinus tachycardia, apparently she had short runs of ventricular tachycardia in the recovery room, as well as bradycardia but I'm unable to find any EKG or strips to confirm this sinus tachycardia at the moment Cardiology consult, magnesium levels and thyroid function tests within normal limits DVT prophylaxis Patient is fully anticoagulated Case was discussed with cardiology and the patient The high probability of a clinically significant, sudden or life threatening deterioration of the [cardiovascular, pulmonary and hematologic] system(s) required my full and direct attention, intervention and personal management. The aggregate critical care time was [33] minutes. This time is in addition to time spent performing reported procedures but includes the following: [] Data Review and interpretation [] Patient assessment and monitoring of vital signs [] Documentation [] Medication orders and management History Interval history: She continues to have shortness of breath on exertion and at rest, and incisional pain along her section incision. Hospitalist Physical - Physical exam Narrative exam: General: Appears to be in moderate respiratory distress HEENT: MMM, EOMI cardiac: S1-S2 heard lungs: decreased air entry, bibasilar crackles abdomen: soft, nontender, nondistended bowel sounds positive extremities: no edema clubbing or cyanosis Skin: no rash or lesion Neuro: no focal deficit Psych: appropriate behavior and mood, cognition intact - Constitutional Vitals: Temp Pulse Resp BP Pulse Ox 99.6 F 119 H 31 H 134/85 98 04/02/17 04:00 04/02/17 04:37 04/02/17 07:39 04/02/17 04:37 04/02/17 08:38 General appearance: Present: mild distress Results - Labs CBC & Chem 7: 04/01/17 13:32 04/01/17 00:02 Labs: Laboratory Last Values WBC 17.5 K/mm3 (4.5-11.0) H 04/01/17 00:02 RBC 4.43 M/mm3 (3.65-5.03) 04/01/17 00:02 Hgb 10.2 gm/dl (10.1-14.3) 04/01/17 13:32 Hct 31.4 % (30.3-42.9) 04/01/17 13:32 MCV 80 fl (79-97) 04/01/17 00:02 MCH 26 pg (28-32) L 04/01/17 00:02 MCHC 33 % (30-34) 04/01/17 00:02 RDW 18.7 % (13.2-15.2) H 04/01/17 00:02 Plt Count 205 K/mm3 (140-440) 04/01/17 00:02 Add Manual Diff Complete 04/01/17 00:02 Total Counted 100 04/01/17 00:02 Seg Neutrophils % Railroad Watchman 04/01/17 00:02 Seg Neuts % (Manual) 71.0 % (40.0-70.0) H 04/01/17 00:02 Band Neutrophils % 22.0 % 04/01/17 00:02 Lymphocytes % (Manual) 2.0 % (13.4-35.0) L 04/01/17 00:02 Reactive Lymphs % (Man) 0 % 04/01/17 00:02 Monocytes % (Manual) 4.0 % (0.0-7.3) 04/01/17 00:02 Eosinophils % (Manual) 0 % (0.0-4.3) 04/01/17 00:02 Basophils % (Manual) 0 % (0.0-1.8) 04/01/17 00:02 Metamyelocytes % 0 % 04/01/17 00:02 Myelocytes % 1.0 % 04/01/17 00:02 Promyelocytes % 0 % 04/01/17 00:02 Blast Cells % 0 % 04/01/17 00:02 Nucleated RBC % Not Reportable 04/01/17 00:02 Seg Neutrophils # Man 12.4 K/mm3 (1.8-7.7) H 04/01/17 00:02 Band Neutrophils # 3.9 K/mm3 04/01/17 00:02 Lymphocytes # (Manual) 0.4 K/mm3 (1.2-5.4) L 04/01/17 00:02 Abs React Lymphs (Man) 0.0 K/mm3 04/01/17 00:02 Monocytes # (Manual) 0.7 K/mm3 (0.0-0.8) 04/01/17 00:02 Eosinophils # (Manual) 0.0 K/mm3 (0.0-0.4) 04/01/17 00:02 Basophils # (Manual) 0.0 K/mm3 (0.0-0.1) 04/01/17 00:02 Metamyelocytes # 0.0 K/mm3 04/01/17 00:02 Myelocytes # 0.2 K/mm3 04/01/17 00:02 Promyelocytes # 0.0 K/mm3 04/01/17 00:02 Blast Cells # 0.0 K/mm3 04/01/17 00:02 WBC Morphology Not Reportable 04/01/17 00:02 Hypersegmented Neuts Not Reportable 04/01/17 00:02 Hyposegmented Neuts Not Reportable 04/01/17 00:02 Hypogranular Neuts Not Reportable 04/01/17 00:02 Smudge Cells Not Reportable 04/01/17 00:02 Toxic Granulation Not Reportable 04/01/17 00:02 Toxic Vacuolation Not Reportable 04/01/17 00:02 Dohle Bodies Not Reportable 04/01/17 00:02 Pelger-Huet Anomaly Not Reportable 04/01/17 00:02 Prosper Rods Not Reportable 04/01/17 00:02 Platelet Estimate Consistent w auto 04/01/17 00:02 Clumped Platelets Not Reportable 04/01/17 00:02 Plt Clumps, EDTA Not Reportable 04/01/17 00:02 Large Platelets Not Reportable 04/01/17 00:02 Giant Platelets Not Reportable 04/01/17 00:02 Platelet Satelliting Not Reportable 04/01/17 00:02 Plt Morphology Comment Not Reportable 04/01/17 00:02 RBC Morphology Not Reportable 04/01/17 00:02 Dimorphic RBCs Not Reportable 04/01/17 00:02 Polychromasia Few 04/01/17 00:02 Hypochromasia Not Reportable 04/01/17 00:02 Poikilocytosis Not Reportable 04/01/17 00:02 Anisocytosis 1+ 04/01/17 00:02 Microcytosis Not Reportable 04/01/17 00:02 Macrocytosis Not Reportable 04/01/17 00:02 Spherocytes Not Reportable 04/01/17 00:02 Pappenheimer Bodies Not Reportable 04/01/17 00:02 Sickle Cells Not Reportable 04/01/17 00:02 Target Cells Not Reportable 04/01/17 00:02 Tear Drop Cells Not Reportable 04/01/17 00:02 Ovalocytes Not Reportable 04/01/17 00:02 Helmet Cells Not Reportable 04/01/17 00:02 Nieto-Takilma Bodies Not Reportable 04/01/17 00:02 [place] Rings Not Reportable 04/01/17 00:02 Belden Cells Not Reportable 04/01/17 00:02 Bite Cells Not Reportable 04/01/17 00:02 Crenated Cell Not Reportable 04/01/17 00:02 Elliptocytes Not Reportable 04/01/17 00:02 Acanthocytes (Spur) Not Reportable 04/01/17 00:02 Rouleaux Not Reportable 04/01/17 00:02 Hemoglobin C Crystals Not Reportable 04/01/17 00:02 Schistocytes Not Reportable 04/01/17 00:02 Malaria parasites Not Reportable 04/01/17 00:02 Mikal Bodies Not Reportable 04/01/17 00:02 Hem Pathologist Commnt No 04/01/17 00:02 D-Dimer 9484.24 ng/mlDDU (0-234) H 04/01/17 00:02 POC ABG pH 7.349 (7.35-7.45) L 04/01/17 10:11 POC ABG pCO2 39.4 (35-45) 04/01/17 10:11 POC ABG pO2 133 (80-105) H 04/01/17 10:11 POC ABG HCO3 21.7 04/01/17 10:11 POC ABG Total CO2 23 04/01/17 10:11 POC ABG O2 Sat 99 04/01/17 10:11 POC ABG Base Excess -4 04/01/17 10:11 FiO2 50 % 04/01/17 10:11 Sodium 138 mmol/L (137-145) 04/01/17 00:02 Potassium 4.5 mmol/L (3.6-5.0) 04/01/17 00:02 Chloride 103.8 mmol/L (98-107) 04/01/17 00:02 Carbon Dioxide 20 mmol/L (22-30) L 04/01/17 00:02 Anion Gap 19 mmol/L 04/01/17 00:02 BUN 10 mg/dL (7-17) 04/01/17 00:02 Creatinine 0.6 mg/dL (0.7-1.2) L 04/01/17 00:02 Estimated GFR > 60 ml/min 04/01/17 00:02 BUN/Creatinine Ratio 16.66 % 04/01/17 00:02 Glucose 90 mg/dL (65-100) 04/01/17 00:02 Uric Acid 4.6 mg/dL (3.5-7.6) 04/01/17 00:02 Calcium 8.6 mg/dL (8.4-10.2) 04/01/17 00:02 Magnesium 1.40 mg/dL (1.7-2.3) L 04/01/17 17:05 Total Bilirubin 0.50 mg/dL (0.1-1.2) 04/01/17 00:02 AST 19 units/L (5-40) 04/01/17 00:02 ALT 9 units/L (7-56) 04/01/17 00:02 Alkaline Phosphatase 122 units/L (35-129) 04/01/17 00:02 Lactate Dehydrogenase 293 units/L (91-180) H 04/01/17 17:05 Total Protein 5.9 g/dL (6.3-8.2) L 04/01/17 00:02 Albumin 2.7 g/dL (3.9-5) L 04/01/17 00:02 Albumin/Globulin Ratio 0.8 % 04/01/17 00:02 TSH 3.760 mlU/mL (0.270-4.200) 04/01/17 17:05 Free T4 0.45 ng/dL (0.76-1.46) L 04/01/17 17:05 Urine Color Yellow (Yellow) 03/31/17 14:00 Urine Turbidity Clear (Clear) 03/31/17 14:00 Urine pH 6.0 (5.0-7.0) 03/31/17 14:00 Ur Specific [place] 1.018 (1.003-1.030) 03/31/17 14:00 Urine Protein 30 mg/dl mg/dL (Negative) 03/31/17 14:00 Urine Glucose (UA) Neg mg/dL (Negative) 03/31/17 14:00 Urine Ketones 80 mg/dL (Negative) 03/31/17 14:00 Urine Blood Neg (Negative) 03/31/17 14:00 Urine Nitrite Neg (Negative) 03/31/17 14:00 Urine Bilirubin Neg (Negative) 03/31/17 14:00 Urine Urobilinogen < 2.0 mg/dL (<2.0) 03/31/17 14:00 Ur Leukocyte Esterase Neg (Negative) 03/31/17 14:00 Urine WBC (Auto) 1.0 /HPF (0.0-6.0) 03/31/17 14:00 Urine RBC (Auto) 1.0 /HPF (0.0-6.0) 03/31/17 14:00 U Epithel Cells (Auto) 1.0 /HPF (0-13.0) 03/31/17 14:00 Urine Mucus 1+ /HPF 03/31/17 14:00 Blood Type B POSITIVE 03/30/17 22:27 Antibody Screen TNR 03/30/17 22:27 ASHLEY Antibody Screen Negative 03/30/17 22:27
[2017-04-02] MEDS: ROCEPHIN/NS 1 GM/50 ML 1 GM/50 ML BAG IV SCH (09:51)
[2017-04-02] MEDS: FEOSOL PO SCH (09:52)
[2017-04-02] MEDS: LOVENOX SUB-Q SCH ×2 (09:53→22:10)
[2017-04-02] MEDS: ZITHROMAX 500 MG in NACL 0.9% 250ML 250 ML IV SCH (10:41)
[2017-04-02] MEDS: PRENATAL VITAMIN PO SCH (10:41)
--- NOTE | 2017-04-02 10:52 | Progress Note ---
Assessment and Plan - Patient Problems (1) Aspiration pneumonia Current Visit: Yes Status: Acute Qualifiers: Aspiration pneumonia type: A Laterality: L Lung location: L Plan to address problem: - will consult ID for antinfective therapy adjustments - continue supplemental oxygen to keep sats > 94% - deploy BIPAP qhs - prn zofran - gentle diuresis in short term (as did receive IVF and likely mild pulmonary edema element) (2) Cardiomyopathy, peripartum, Current Visit: Yes Status: Acute Plan to address problem: - gentle diuresis - IV fluids stopped - [employer] to funeral prearrangement counselor re: repeat risk - per cardiology (3) Obesity Current Visit: Yes Status: Acute Qualifiers: Obesity type: O Obesity classification: O Serious obesity comorbidity presence: S Body mass index: B Plan to address problem: - weight loss recommended (should loose weight also) - outpatient sleep clinic evaluation (4) Anxiety Current Visit: Yes Status: Acute Plan to address problem: - prn xanax if ok with [employer] re: breast feeding - verbally encouraged (5) Dyspnea Current Visit: Yes Status: Acute Qualifiers: Dyspnea type: D Plan to address problem: - due to above (6) Discharge planning issues Current Visit: Yes Status: Acute Plan to address problem: - she is at risk for further acute decompensation; she is currently breathing in the 40's and with SIRS and will be observed in the ICU overnight ....35' CCT Subjective Date of service: 04/02/17 Principal diagnosis: 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%); Acute Resp Distress; Anxiety Interval history: Seen and examined at bedside; 24 hour events reviewed; nursing and respiratory care staff consulted; no adverse overnight events reported to me; anxious looking; remains with tachypnea; denies acute chest pains; No N/V/F/C Objective Vital Signs - 12hr 04/01/17 04/01/17 04/01/17 23:00 23:15 23:31 Temperature Pulse Rate 126 H 118 H 128 H Pulse Rate [ From Monitor] Respiratory 38 H 36 H 48 H Rate Blood Pressure 134/80 134/80 134/80 O2 Sat by Pulse 96 98 97 Oximetry 04/01/17 04/02/17 04/02/17 23:45 00:00 00:15 Temperature 99.0 F Pulse Rate 116 H 115 H 118 H Pulse Rate [ From Monitor] Respiratory 49 H 49 H 40 H Rate Blood Pressure 134/80 136/75 134/80 O2 Sat by Pulse 98 96 96 Oximetry 04/02/17 04/02/17 04/02/17 00:31 00:45 01:00 Temperature Pulse Rate 117 H 114 H 114 H Pulse Rate [ From Monitor] Respiratory 53 H 51 H 53 H Rate Blood Pressure 134/80 134/80 135/69 O2 Sat by Pulse 97 98 94 Oximetry 04/02/17 04/02/17 04/02/17 01:15 01:31 01:45 Temperature Pulse Rate 125 H 122 H 119 H Pulse Rate [ From Monitor] Respiratory 33 H 37 H 51 H Rate Blood Pressure 135/69 135/69 135/69 O2 Sat by Pulse 98 97 97 Oximetry 04/02/17 04/02/17 04/02/17 02:00 02:15 02:31 Temperature Pulse Rate 115 H 124 H 122 H Pulse Rate [ From Monitor] Respiratory 43 H 26 H 53 H Rate Blood Pressure 124/74 124/74 124/74 O2 Sat by Pulse 98 97 97 Oximetry 04/02/17 04/02/17 04/02/17 02:45 03:00 03:15 Temperature Pulse Rate 118 H 113 H 120 H Pulse Rate [ From Monitor] Respiratory 29 H 38 H 43 H Rate Blood Pressure 124/74 139/88 139/88 O2 Sat by Pulse 96 96 96 Oximetry 04/02/17 04/02/17 04/02/17 03:31 03:45 04:00 Temperature 99.6 F Pulse Rate 108 H 121 H 116 H Pulse Rate [ From Monitor] Respiratory 50 H 38 H 45 H Rate Blood Pressure 139/88 139/88 134/85 O2 Sat by Pulse 88 96 96 Oximetry 04/02/17 04/02/17 04/02/17 04:15 04:31 04:37 Temperature Pulse Rate 124 H 119 H 119 H Pulse Rate [ From Monitor] Respiratory 47 H 45 H Rate Blood Pressure 134/85 134/85 134/85 O2 Sat by Pulse 97 98 Oximetry 04/02/17 04/02/17 04/02/17 04:45 05:01 05:15 Temperature Pulse Rate 118 H 122 H 127 H Pulse Rate [ From Monitor] Respiratory 45 H 46 H 30 H Rate Blood Pressure 134/85 154/97 154/97 O2 Sat by Pulse 97 94 97 Oximetry 04/02/17 04/02/17 04/02/17 05:31 05:45 06:00 Temperature Pulse Rate 120 H 120 H Pulse Rate [ From Monitor] Respiratory 56 H 47 H 45 H Rate Blood Pressure 154/97 154/97 O2 Sat by Pulse 99 98 Oximetry 04/02/17 04/02/17 04/02/17 06:01 06:15 06:31 Temperature Pulse Rate 121 H 120 H 121 H Pulse Rate [ From Monitor] Respiratory 46 H 51 H 45 H Rate Blood Pressure 140/85 140/85 140/85 O2 Sat by Pulse 98 100 99 Oximetry 04/02/17 04/02/17 04/02/17 06:45 07:00 07:15 Temperature Pulse Rate 117 H 119 H 118 H Pulse Rate [ From Monitor] Respiratory 47 H 51 H 27 H Rate Blood Pressure 140/85 130/76 130/76 O2 Sat by Pulse 98 98 99 Oximetry 04/02/17 04/02/17 04/02/17 07:31 07:39 07:45 Temperature Pulse Rate 118 H 117 H Pulse Rate [ From Monitor] Respiratory 31 H 31 H 21 Rate Blood Pressure 130/76 130/76 O2 Sat by Pulse 100 98 Oximetry 04/02/17 04/02/17 04/02/17 08:00 08:15 08:31 Temperature 98.8 F Pulse Rate 113 H 121 H 122 H Pulse Rate [ 120 H From Monitor] Respiratory 54 H 21 22 Rate Blood Pressure 141/84 141/84 141/84 O2 Sat by Pulse 96 97 96 Oximetry 04/02/17 04/02/17 08:38 08:45 Temperature Pulse Rate 118 H Pulse Rate [ From Monitor] Respiratory 52 H Rate Blood Pressure 141/84 O2 Sat by Pulse 98 96 Oximetry Constitutional: alert, appears uncomfortable Eyes: non-icteric ENT: oropharynx moist Neck: supple, no lymphadenopathy, no JVD Effort: mildly labored Ascultation: Bilateral: clear, diminished breath sounds Cardiovascular: other (tachycardia, no murmurs, ) Gastrointestinal: normoactive bowel sounds, hypoactive bowel sounds, soft, tender (mildy , dry dressing suprpubically, [place] catheter) Integumentary: normal Extremities: no cyanosis, no edema, pulses normal, no ischemia or petechiae Neurologic: normal mental status, non-focal exam, pupils equal and round, CN II- XII normal Psychiatric: anxious CBC and BMP: 04/01/17 13:32 04/01/17 00:02 ABG, PT/INR, D-dimer: ABG POC ABG pH 7.349 (7.35-7.45) L 04/01/17 10:11 POC ABG pCO2 39.4 (35-45) 04/01/17 10:11 POC ABG pO2 133 (80-105) H 04/01/17 10:11 POC ABG HCO3 21.7 04/01/17 10:11 POC ABG Total CO2 23 04/01/17 10:11 POC ABG O2 Sat 99 04/01/17 10:11 PT/INR, D-dimer D-Dimer 9484.24 ng/mlDDU (0-234) H 04/01/17 00:02 Abnormal lab findings: Abnormal Labs 03/30/17 03/31/17 03/31/17 22:27 10:11 10:11 WBC MCV 78 L MCH 26 L 26 L RDW 18.7 H 18.3 H Seg Neuts % (Manual) Lymphocytes % (Manual) Seg Neutrophils # Man Lymphocytes # (Manual) D-Dimer POC ABG pH POC ABG pO2 Carbon Dioxide Creatinine 0.5 L Magnesium Lactate Dehydrogenase 218 H Total Protein Albumin Free T4 04/01/17 04/01/17 04/01/17 00:02 00:02 00:02 WBC 17.5 H MCV MCH 26 L RDW 18.7 H Seg Neuts % (Manual) 71.0 H Lymphocytes % (Manual) 2.0 L Seg Neutrophils # Man 12.4 H Lymphocytes # (Manual) 0.4 L D-Dimer 9484.24 H POC ABG pH POC ABG pO2 Carbon Dioxide 20 L Creatinine 0.6 L Magnesium Lactate Dehydrogenase Total Protein 5.9 L Albumin 2.7 L Free T4 04/01/17 04/01/17 04/01/17 10:11 17:05 17:05 WBC MCV MCH RDW Seg Neuts % (Manual) Lymphocytes % (Manual) Seg Neutrophils # Man Lymphocytes # (Manual) D-Dimer POC ABG pH 7.349 L POC ABG pO2 133 H Carbon Dioxide Creatinine Magnesium 1.40 L Lactate Dehydrogenase 293 H Total Protein Albumin Free T4 04/01/17 17:05 WBC MCV MCH RDW Seg Neuts % (Manual) Lymphocytes % (Manual) Seg Neutrophils # Man Lymphocytes # (Manual) D-Dimer POC ABG pH POC ABG pO2 Carbon Dioxide Creatinine Magnesium Lactate Dehydrogenase Total Protein Albumin Free T4 0.[address] scan - chest: image reviewed (liokely aspiration pneumonia with bilateral consolidation)
--- NOTE | 2017-04-02 10:59 | Progress Note ---
Assessment and Plan Assessment: Liv- cardiomyopathy - EF 35-40%. Early mild acute systolic heart failure Sinus tachycardia ? VT HTN Leukocytosis Post-, s/p 03/31/2017 Plan: Echo reviewed - EF 35-40%, mild LVH, abnormal LV diastilic function. Replete Mg. Increase labetalol to 100mg PO TID. Hold for HR <60 and/or SBP <100. Initiate captopril, 12.5mg PO BID. Cont IV diuresis for one more day and consider conversion to PO in AM. Repeat BMP in AM. Cont telemetry. Pt may tx out of IC to tele from cardiology standpoint. Assessment and plan reviewed with pt at bedside. She is aware of her diagnosis of PPCMP and is aware that having another child in her lifetime is absolutely contraindicated. She verbalizes understanding. The patient has been seen in conjunction with Dr. Montez who agrees with the assessment and plan of care. Subjective Date of service: 04/02/17 Principal diagnosis: s/p primary c/s secondary to arrest of descent with pneumonia Objective Vital Signs Temp Pulse Pulse Resp BP Pulse Ox 04/02/17 08:45 118 H 52 H 141/84 96 04/02/17 08:38 98 04/02/17 08:31 122 H 22 141/84 96 04/02/17 08:15 121 H 21 141/84 97 04/02/17 08:00 98.8 F 113 H 120 H 54 H 141/84 96 04/02/17 07:45 117 H 21 130/76 98 04/02/17 07:39 31 H 04/02/17 07:31 118 H 31 H 130/76 100 04/02/17 07:15 118 H 27 H 130/76 99 04/02/17 07:00 119 H 51 H 130/76 98 04/02/17 06:45 117 H 47 H 140/85 98 04/02/17 06:31 121 H 45 H 140/85 99 04/02/17 06:15 120 H 51 H 140/85 100 04/02/17 06:01 121 H 46 H 140/85 98 04/02/17 06:00 45 H 04/02/17 05:45 120 H 47 H 154/97 98 04/02/17 05:31 120 H 56 H 154/97 99 04/02/17 05:15 127 H 30 H 154/97 97 04/02/17 05:01 122 H 46 H 154/97 94 04/02/17 04:45 118 H 45 H 134/85 97 04/02/17 04:37 119 H 134/85 04/02/17 04:31 119 H 45 H 134/85 98 04/02/17 04:15 124 H 47 H 134/85 97 04/02/17 04:00 99.6 F 116 H 45 H 134/85 96 04/02/17 03:45 121 H 38 H 139/88 96 04/02/17 03:31 108 H 50 H 139/88 88 04/02/17 03:15 120 H 43 H 139/88 96 04/02/17 03:00 113 H 38 H 139/88 96 04/02/17 02:45 118 H 29 H 124/74 96 04/02/17 02:31 122 H 53 H 124/74 97 04/02/17 02:15 124 H 26 H 124/74 97 04/02/17 02:00 115 H 43 H 124/74 98 04/02/17 01:45 119 H 51 H 135/69 97 04/02/17 01:31 122 H 37 H 135/69 97 04/02/17 01:15 125 H 33 H 135/69 98 04/02/17 01:00 114 H 53 H 135/69 94 04/02/17 00:45 114 H 51 H 134/80 98 04/02/17 00:31 117 H 53 H 134/80 97 04/02/17 00:15 118 H 40 H 134/80 96 04/02/17 00:00 99.0 F 115 H 49 H 136/75 96 04/01/17 23:45 116 H 49 H 134/80 98 04/01/17 23:31 128 H 48 H 134/80 97 04/01/17 23:15 118 H 36 H 134/80 98 04/01/17 23:00 126 H 38 H 134/80 96 04/01/17 22:45 125 H 48 H 135/85 98 04/01/17 22:33 121 H 04/01/17 22:31 121 H 17 135/85 98 04/01/17 22:15 122 H 46 H 135/85 97 04/01/17 22:00 121 H 52 H 135/85 97 04/01/17 21:45 120 H 53 H 117/64 99 04/01/17 21:31 125 H 54 H 117/64 99 04/01/17 21:15 124 H 26 H 117/64 99 04/01/17 21:00 125 H 38 H 122/64 95 04/01/17 20:45 127 H 42 H 117/64 97 04/01/17 20:31 123 H 49 H 117/64 98 04/01/17 20:26 47 H 04/01/17 20:15 128 H 49 H 117/64 96 04/01/17 20:00 100.0 F H 133 H 45 H 117/64 95 04/01/17 19:45 121 H 28 H 115/71 99 04/01/17 19:31 124 H 15 115/71 98 04/01/17 19:15 118 H 46 H 115/71 97 04/01/17 19:00 116 H 43 H 115/71 98 04/01/17 18:45 121 H 32 H 117/66 98 04/01/17 18:31 118 H 35 H 117/66 98 04/01/17 18:15 125 H 53 H 117/66 97 04/01/17 18:00 133 H 43 H 117/66 97 04/01/17 17:45 151 H 18 139/90 93 04/01/17 17:31 146 H 12 139/90 100 04/01/17 17:15 137 H 31 H 139/90 99 04/01/17 17:01 131 H 41 H 139/90 99 04/01/17 16:45 123 H 53 H 139/90 99 04/01/17 16:31 122 H 46 H 139/90 99 04/01/17 16:15 126 H 55 H 139/90 97 04/01/17 16:10 127 H 139/90 04/01/17 16:00 99.4 F 127 H 55 H 139/90 96 04/01/17 15:31 121 H 51 H 144/92 99 04/01/17 15:15 131 H 28 H 144/92 97 04/01/17 15:00 121 H 45 H 144/92 96 04/01/17 14:45 118 H 47 H 99 04/01/17 14:31 122 H 48 H 99 04/01/17 14:15 119 H 48 H 98 04/01/17 14:01 117 H 48 H 99 04/01/17 13:45 122 H 47 H 99 04/01/17 13:31 123 H 28 H 99 04/01/17 13:15 124 H 38 H 96 04/01/17 13:11 97 04/01/17 12:00 98.1 F - Physical Examination HEENT: Positive: PERRL, Normocephaly, Mucus Membranes Moist Neck: Positive: neck supple, trachea midline Neuro: Positive: Grossly Intact, Cranial Nerve 2-12 Intact Abdomen: Positive: Soft, Active Bowel Sounds Incision: Incision Site () Musculoskeletal: No Fluid Collection, No Pain, Normal Range of Motion Extremities: Absent: edema - Labs and Meds Cardiac Enzymes 04/01/17 Range/Units 17:05 Lactate Dehydrogenase 293 H (91-180) units/L CBC 04/01/17 Range/Units 13:32 Hgb 10.2 (10.1-14.3) gm/dl Hct 31.4 (30.3-42.9) % - Imaging and Cardiology EKG: report reviewed, image reviewed Echo: pending - EKG Sinus rhythms and dysrhythmias: sinus tachycardia
[2017-04-02] MEDS: MAG-OX PO SCH ×2 (12:41→22:09)
[2017-04-02] MEDS: CAPOTEN PO SCH ×2 (12:41→22:09)
[2017-04-02] MEDS: LASIX IV SCH (12:42)
[2017-04-02] MEDS: PEPCID PO SCH ×2 (13:10→22:09)
[2017-04-02] MEDS ORDERED: PROVENTIL IH PRN (13:29)
--- NOTE | 2017-04-02 14:05 | Progress Note ---
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%); Acute Resp Distress; Anxiety Patient reports: appetite normal, voiding normally, pain well controlled : doing well, nursing well Objective - Vital Signs Latest vital signs: Vital Signs Temp Pulse Pulse Resp BP Pulse Ox 04/02/17 13:09 116 H 137/90 04/02/17 12:45 116 H 49 H 142/93 96 04/02/17 12:41 120 H 143/101 04/02/17 12:31 116 H 48 H 142/93 96 04/02/17 12:15 121 H 37 H 143/101 96 04/02/17 12:00 100.3 F H 121 H 38 H 143/101 04/02/17 11:49 122 H 48 H 142/93 88 04/02/17 11:31 130 H 21 142/93 99 04/02/17 11:15 120 H 34 H 142/93 98 04/02/17 11:00 119 H 46 H 142/93 97 04/02/17 10:45 117 H 42 H 127/78 99 04/02/17 10:31 123 H 38 H 127/78 98 04/02/17 10:23 124 H 41 H 127/78 98 04/02/17 10:00 119 H 44 H 133/77 98 04/02/17 09:45 127 H 41 H 133/77 97 04/02/17 09:31 123 H 22 133/77 94 04/02/17 09:15 120 H 47 H 133/77 96 04/02/17 09:00 119 H 46 H 133/77 94 04/02/17 08:45 118 H 52 H 141/84 96 04/02/17 08:38 98 04/02/17 08:31 122 H 22 141/84 96 04/02/17 08:15 121 H 21 141/84 97 04/02/17 08:00 98.8 F 113 H 120 H 54 H 141/84 96 04/02/17 07:45 117 H 21 130/76 98 04/02/17 07:39 31 H 04/02/17 07:31 118 H 31 H 130/76 100 04/02/17 07:15 118 H 27 H 130/76 99 04/02/17 07:00 119 H 51 H 130/76 98 04/02/17 06:45 117 H 47 H 140/85 98 04/02/17 06:31 121 H 45 H 140/85 99 04/02/17 06:15 120 H 51 H 140/85 100 04/02/17 06:01 121 H 46 H 140/85 98 04/02/17 06:00 45 H 04/02/17 05:45 120 H 47 H 154/97 98 04/02/17 05:31 120 H 56 H 154/97 99 04/02/17 05:15 127 H 30 H 154/97 97 04/02/17 05:01 122 H 46 H 154/97 94 04/02/17 04:45 118 H 45 H 134/85 97 04/02/17 04:37 119 H 134/85 04/02/17 04:31 119 H 45 H 134/85 98 04/02/17 04:15 124 H 47 H 134/85 97 04/02/17 04:00 99.6 F 116 H 45 H 134/85 96 04/02/17 03:45 121 H 38 H 139/88 96 04/02/17 03:31 108 H 50 H 139/88 88 04/02/17 03:15 120 H 43 H 139/88 96 04/02/17 03:00 113 H 38 H 139/88 96 04/02/17 02:45 118 H 29 H 124/74 96 04/02/17 02:31 122 H 53 H 124/74 97 04/02/17 02:15 124 H 26 H 124/74 97 04/02/17 02:00 115 H 43 H 124/74 98 04/02/17 01:45 119 H 51 H 135/69 97 04/02/17 01:31 122 H 37 H 135/69 97 04/02/17 01:15 125 H 33 H 135/69 98 04/02/17 01:00 114 H 53 H 135/69 94 04/02/17 00:45 114 H 51 H 134/80 98 04/02/17 00:31 117 H 53 H 134/80 97 04/02/17 00:15 118 H 40 H 134/80 96 04/02/17 00:00 99.0 F 115 H 49 H 136/75 96 04/01/17 23:45 116 H 49 H 134/80 98 04/01/17 23:31 128 H 48 H 134/80 97 04/01/17 23:15 118 H 36 H 134/80 98 04/01/17 23:00 126 H 38 H 134/80 96 04/01/17 22:45 125 H 48 H 135/85 98 04/01/17 22:33 121 H 04/01/17 22:31 121 H 17 135/85 98 04/01/17 22:15 122 H 46 H 135/85 97 04/01/17 22:00 121 H 52 H 135/85 97 04/01/17 21:45 120 H 53 H 117/64 99 04/01/17 21:31 125 H 54 H 117/64 99 04/01/17 21:15 124 H 26 H 117/64 99 04/01/17 21:00 125 H 38 H 122/64 95 04/01/17 20:45 127 H 42 H 117/64 97 04/01/17 20:31 123 H 49 H 117/64 98 04/01/17 20:26 47 H 04/01/17 20:15 128 H 49 H 117/64 96 04/01/17 20:00 100.0 F H 133 H 45 H 117/64 95 04/01/17 19:45 121 H 28 H 115/71 99 04/01/17 19:31 124 H 15 115/71 98 04/01/17 19:15 118 H 46 H 115/71 97 04/01/17 19:00 116 H 43 H 115/71 98 04/01/17 18:45 121 H 32 H 117/66 98 04/01/17 18:31 118 H 35 H 117/66 98 04/01/17 18:15 125 H 53 H 117/66 97 04/01/17 18:00 133 H 43 H 117/66 97 04/01/17 17:45 151 H 18 139/90 93 04/01/17 17:31 146 H 12 139/90 100 04/01/17 17:15 137 H 31 H 139/90 99 04/01/17 17:01 131 H 41 H 139/90 99 04/01/17 16:45 123 H 53 H 139/90 99 04/01/17 16:31 122 H 46 H 139/90 99 04/01/17 16:15 126 H 55 H 139/90 97 04/01/17 16:10 127 H 139/90 04/01/17 16:00 99.4 F 127 H 55 H 139/90 96 04/01/17 15:31 121 H 51 H 144/92 99 04/01/17 15:15 131 H 28 H 144/92 97 04/01/17 15:00 121 H 45 H 144/92 96 04/01/17 14:45 118 H 47 H 99 04/01/17 14:31 122 H 48 H 99 04/01/17 14:15 119 H 48 H 98 04/01/17 14:01 117 H 48 H 99 Intake and Output 04/01/17 04/02/17 04/02/17 22:59 06:59 14:59 Intake Total 150 400 150 Output Total 3652 800 Balance -3502 -400 150 Intake: IV 50 ROCEPHIN/NS 1 GM/50 ML 1 50 gm In 50 ml @ 100 mls/hr IV Q24HR [facility] Rx#: [id number] Oral 150 400 100 Other 0 Output: Urine 3650 800 Indwelling Catheter 800 Uretheral ([place]) 1800 Void 1850 Pad Count 2 Other: Total, Intake Amount 150 50 100 Total, Output Amount 1200 800 Voiding Method Indwelling Catheter Indwelling Catheter Weight 143.4 kg - Exam Breasts: Present: normal Cardiovascular: Present: Regular rate Abdomen: Present: normal appearance, soft, normal bowel sounds. Absent: distention, tenderness Vulva: both: normal Uterus: Present: normal, firm, fundal height below umbilicus. Absent: bogginess Extremities: Present: normal Deep Tendon Reflex Grade: Normal +2 Incision: Present: normal, dry - Labs Labs: Abnormal lab results 04/01/17 04/01/17 04/01/17 Range/Units 17:05 17:05 17:05 Magnesium 1.40 L (1.7-2.3) mg/dL Lactate Dehydrogenase 293 H (91-180) units/L Free T4 0.45 L (0.76-1.46) ng/dL
[2017-04-02] MEDS: MORPHINE PCA 30MG/30ML IV SCH (18:37)
[2017-04-02] MEDS: NORCO 5/325 PO PRN (18:40)
[2017-04-03] MEDS: LASIX IV SCH (04:55)
[2017-04-03 05:11] LABS: Basophils % (Auto) 0.2 % (0.0-1.8); Eosinophils % (Auto) 1.1 % (0.0-4.3); Hematocrit 26.5 % (30.3-42.9); Hemoglobin 8.7 gm/dl (10.1-14.3); Mean Corpuscular HGB Conc 33 % (30-34); Mean Corpuscular Volume 79 fl (79-97); Platelet Count 260 K/mm3 (140-440); Red Blood Count 3.34 M/mm3 (3.65-5.03); Red Cell Distribution Width 19.2 % (13.2-15.2)
[2017-04-03 05:14] LABS: Mean Corpuscular Hemoglobin 26 pg (28-32)
[2017-04-03 05:28] LABS: Blood Urea Nitrogen 7 mg/dL (7-17); Calcium 8.4 mg/dL (8.4-10.2); Carbon Dioxide 31 mmol/L (22-30); Chloride 101.4 mmol/L (98-107); Glucose 87 mg/dL (65-100); Potassium 3.7 mmol/L (3.6-5.0); Sodium 140 mmol/L (137-145)
[2017-04-03 05:29] LABS: Anion Gap 11 mmol/L
[2017-04-03] MEDS ORDERED: LASIX IV SCH (06:00)
[2017-04-03] MEDS: NORMODYNE PO SCH ×3 (09:00→22:01)
--- NOTE | 2017-04-03 09:34 | Progress Note ---
Assessment and Plan Assessment: Liv- cardiomyopathy - EF 35-40%. Early mild acute systolic heart failure Pneumonia / hypoxia - 2/2 aspiration per pulmonary. Sinus tachycardia ? VT - reported VT post-operatively; review of chart and telemetry reveals only sinus tachycardia, HR 130s, with no arrhythmias. HTN Post-, s/p 03/31/2017 Anemia Plan: CXR reviewed with bilateral pulmonary infiltrates, slightly prominent bronchovascular markings. Decrease diuresis to PO lasix, 40mg daily. Await ID consultation for antinfective therapy adjustments per pulmonary. Replete Mg. Cont labetalol to 100mg PO TID. Hold for HR <60 and/or SBP <100. Increase captopril to 25mg PO BID. Cont telemetry. Pt may tx out of ICU to tele from cardiology standpoint. Assessment and plan reviewed with pt at bedside. The patient has been seen in conjunction with Dr. Montez who agrees with the assessment and plan of care. Subjective Date of service: 04/03/17 Principal diagnosis: 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%); Acute Resp Distress; Anxiety Interval history: Pt sitting up in chair, c/o site pain. Denies any cardiac complaints. Remains in ST on tele, BPs remain elevated. Objective Last Vital Signs Temp 99.9 F H 04/03/17 08:00 Pulse 134 H 04/03/17 08:17 Resp 21 04/03/17 08:17 BP 168/111 04/03/17 08:17 Pulse Ox 95 04/03/17 05:00 - Physical Examination General: No Apparent Distress HEENT: Positive: PERRL, Normocephaly, Mucus Membranes Moist Neck: Positive: neck supple, trachea midline Cardiac: Positive: Regular Rhythm, S1/S2, Tachycardia Lungs: Positive: clear to auscultation Neuro: Positive: Grossly Intact, Cranial Nerve 2-12 Intact Abdomen: Positive: Soft, Active Bowel Sounds Incision: Incision Site () Musculoskeletal: No Fluid Collection, No Pain, Normal Range of Motion Extremities: Absent: edema - Labs and Meds CBC 04/03/17 Range/Units 04:46 WBC 16.0 H (4.5-11.0) K/mm3 RBC 3.34 L (3.65-5.03) M/mm3 Hgb 8.7 L (10.1-14.3) gm/dl Hct 26.5 L (30.3-42.9) % Plt Count 260 (140-440) K/mm3 Lymph # 1.5 (1.2-5.4) K/mm3 [place] # 1.3 H (0.0-0.8) K/mm3 Eos # 0.2 (0.0-0.4) K/mm3 Baso # 0.0 (0.0-0.1) K/mm3 Comprehensive Metabolic Panel 04/03/17 Range/Units 04:46 Sodium 140 (137-145) mmol/L Potassium 3.7 (3.6-5.0) mmol/L Chloride 101.4 (98-107) mmol/L Carbon Dioxide 31 H D (22-30) mmol/L BUN 7 (7-17) mg/dL Creatinine 0.5 L (0.7-1.2) mg/dL Glucose 87 (65-100) mg/dL Calcium 8.4 (8.4-10.2) mg/dL - Imaging and Cardiology EKG: report reviewed, image reviewed Echo: report reviewed - Telemetry EKG Rhythm: Sinus Tachycardia - EKG Sinus rhythms and dysrhythmias: sinus tachycardia
[2017-04-03] MEDS: PEPCID PO SCH ×2 (10:03→22:01)
[2017-04-03] MEDS: MAG-OX PO SCH ×2 (10:03→22:01)
[2017-04-03] MEDS: FEOSOL PO SCH (10:03)
[2017-04-03] MEDS: LOVENOX SUB-Q SCH ×2 (10:04→22:00)
[2017-04-03] MEDS: ROCEPHIN/NS 1 GM/50 ML 1 GM/50 ML BAG IV SCH (10:05)
[2017-04-03] MEDS: ZITHROMAX 500 MG in NACL 0.9% 250ML 250 ML IV SCH (10:10)
[2017-04-03] MEDS: PRENATAL VITAMIN PO SCH (10:11)
--- NOTE | 2017-04-03 10:34 | XRay Report ---
PORTABLE CHEST INDICATION: Shortness of breath. COMPARISON: 03/31/2017 chest CTA. FINDINGS: Portable, frontal chest radiograph again suggest mild cardiomegaly with left atrial/pulmonary arterial prominence/pulmonary arterial hypertension. Slightly prominent bronchovascular markings centrally. Previously seen diffuse bilateral pulmonary infiltrates not as well appreciated plain radiographically. Right hemidiaphragm minimally elevated. EKG leads. Intact bones. CONCLUSION: Findings, as above. Please correlate. Thank you for the opportunity to participate in this patient's care.
--- NOTE | 2017-04-03 11:31 | Progress Note ---
Assessment and Plan - Patient Problems (1) Aspiration pneumonia Current Visit: Yes Status: Acute Qualifiers: Aspiration pneumonia type: A Laterality: L Lung location: L Plan to address problem: - continue current AB's till adjusted by ID - continue supplemental oxygen to keep sats > 94% - continue BIPAP qhs - prn zofran - gentle diuresis for pulmonary edema element (2) Cardiomyopathy, peripartum, Current Visit: Yes Status: Acute Plan to address problem: - gentle diuresis - IV fluids stopped - [employer] TECHNICIAN to retirement plan counselor re: repeat risk - per cardiology otherwise (3) Obesity Current Visit: Yes Status: Acute Qualifiers: Obesity type: O Obesity classification: O Serious obesity comorbidity presence: S Body mass index: B Plan to address problem: - weight loss recommended (should loose weight also) - outpatient sleep clinic evaluation (4) Anxiety Current Visit: Yes Status: Acute Plan to address problem: - much improved (5) Dyspnea Current Visit: Yes Status: Acute Qualifiers: Dyspnea type: D Plan to address problem: - element due to above - improved (6) Pulmonary edema Current Visit: Yes Status: Acute Qualifiers: Chronicity: C Plan to address problem: - rapidity of improvement and negative fluid balance (>3.5L) suggest there was a significant pulmonary edema component - gentle diuresis (7) Discharge planning issues Current Visit: Yes Status: Acute Plan to address problem: - OK to transfer out of ICU Subjective Date of service: 04/03/17 Principal diagnosis: 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%); Acute Resp Distress; Anxiety Interval history: Seen and examined at bedside; 24 hour events reviewed; nursing and respiratory care staff consulted; no adverse overnight events reported to me; doing much better; tachycardia improved; less labored breathing; no N/V/F/C Objective Vital Signs - 12hr 04/02/17 04/03/17 04/03/17 23:48 00:00 01:01 Temperature 98.9 F 99 F Pulse Rate 107 H 103 H Pulse Rate [ 128 H From Monitor] Respiratory 40 H 39 H Rate Blood Pressure 136/88 151/97 O2 Sat by Pulse 95 94 Oximetry 04/03/17 04/03/17 04/03/17 02:00 03:00 03:47 Temperature 99.8 F H Pulse Rate 114 H 118 H Pulse Rate [ From Monitor] Respiratory 21 31 H Rate Blood Pressure 159/105 154/98 O2 Sat by Pulse 97 94 Oximetry 04/03/17 04/03/17 04/03/17 04:00 05:00 06:00 Temperature Pulse Rate 110 H 114 H Pulse Rate [ 132 H From Monitor] Respiratory 38 H 41 H 24 Rate Blood Pressure 152/97 158/102 O2 Sat by Pulse 92 95 Oximetry 04/03/17 04/03/17 04/03/17 06:01 07:00 08:00 Temperature 99.9 F H Pulse Rate 132 H 125 H Pulse Rate [ From Monitor] Respiratory 20 29 H Rate Blood Pressure 158/102 168/111 O2 Sat by Pulse Oximetry 04/03/17 04/03/17 04/03/17 08:17 09:00 09:09 Temperature Pulse Rate 134 H 120 H 139 H Pulse Rate [ From Monitor] Respiratory 21 Rate Blood Pressure 168/111 168/90 168/111 O2 Sat by Pulse 98 Oximetry 04/03/17 04/03/17 10:00 11:00 Temperature Pulse Rate 117 H 115 H Pulse Rate [ From Monitor] Respiratory 24 28 H Rate Blood Pressure 133/76 123/73 O2 Sat by Pulse 93 93 Oximetry Constitutional: no acute distress, alert Eyes: non-icteric ENT: oropharynx moist Neck: supple, no lymphadenopathy, no JVD Effort: mildly labored Ascultation: Bilateral: clear, diminished breath sounds Cardiovascular: other (tachycardia, no murmurs, ) Gastrointestinal: normoactive bowel sounds, hypoactive bowel sounds, soft, tender (mildy , dry dressing suprpubically, [place] catheter) Integumentary: normal Extremities: no cyanosis, no edema, pulses normal, no ischemia or petechiae Neurologic: normal mental status, non-focal exam, pupils equal and round, CN II- XII normal Psychiatric: mood appropriate, affect normal CBC and BMP: 04/03/17 04:46 04/03/17 04:46 ABG, PT/INR, D-dimer: ABG POC ABG pH 7.349 (7.35-7.45) L 04/01/17 10:11 POC ABG pCO2 39.4 (35-45) 04/01/17 10:11 POC ABG pO2 133 (80-105) H 04/01/17 10:11 POC ABG HCO3 21.7 04/01/17 10:11 POC ABG Total CO2 23 07/12/17 10:11 POC ABG O2 Sat 99 04/01/17 10:11 PT/INR, D-dimer D-Dimer 9484.24 ng/mlDDU (0-234) H 04/01/17 00:02 Abnormal lab findings: Abnormal Labs 03/30/17 03/31/17 03/31/17 22:27 10:11 10:11 WBC RBC Hgb Hct MCV 78 L MCH 26 L 26 L RDW 18.7 H 18.3 H Lymph % (Auto) [place] % (Auto) [place] # Seg Neutrophils % Seg Neuts % (Manual) Lymphocytes % (Manual) Seg Neutrophils # Seg Neutrophils # Man Lymphocytes # (Manual) D-Dimer POC ABG pH POC ABG pO2 Carbon Dioxide Creatinine 0.5 L Magnesium Lactate Dehydrogenase 218 H C-Reactive Protein Total Protein Albumin Free T4 04/01/17 04/01/17 04/01/17 00:02 00:02 00:02 WBC 17.5 H RBC Hgb Hct MCV MCH 26 L RDW 18.7 H Lymph % (Auto) [place] % (Auto) [place] # Seg Neutrophils % Seg Neuts % (Manual) 71.0 H Lymphocytes % (Manual) 2.0 L Seg Neutrophils # Seg Neutrophils # Man 12.4 H Lymphocytes # (Manual) 0.4 L D-Dimer 9484.24 H POC ABG pH POC ABG pO2 Carbon Dioxide 20 L Creatinine 0.6 L Magnesium Lactate Dehydrogenase C-Reactive Protein Total Protein 5.9 L Albumin 2.7 L Free T4 04/01/17 04/01/17 04/01/17 10:11 17:05 17:05 WBC RBC Hgb Hct MCV MCH RDW Lymph % (Auto) [place] % (Auto) [place] # Seg Neutrophils % Seg Neuts % (Manual) Lymphocytes % (Manual) Seg Neutrophils # Seg Neutrophils # Man Lymphocytes # (Manual) D-Dimer POC ABG pH 7.349 L POC ABG pO2 133 H Carbon Dioxide Creatinine Magnesium 1.40 L Lactate Dehydrogenase 293 H C-Reactive Protein Total Protein Albumin Free T4 04/01/17 04/02/17 04/03/17 17:05 13:54 04:46 WBC RBC Hgb Hct MCV MCH RDW Lymph % (Auto) [place] % (Auto) [place] # Seg Neutrophils % Seg Neuts % (Manual) Lymphocytes % (Manual) Seg Neutrophils # Seg Neutrophils # Man Lymphocytes # (Manual) D-Dimer POC ABG pH POC ABG pO2 Carbon Dioxide 31 H D Creatinine 0.5 L Magnesium Lactate Dehydrogenase C-Reactive Protein 20.50 H Total Protein Albumin Free T4 0.45 L 04/03/17 04/03/17 04:46 04:46 WBC 16.0 H RBC 3.34 L Hgb 8.7 L Hct 26.5 L MCV MCH 26 L RDW 19.2 H Lymph % (Auto) 9.3 L [place] % (Auto) 8.2 H [place] # 1.3 H Seg Neutrophils % 81.2 H Seg Neuts % (Manual) Lymphocytes % (Manual) Seg Neutrophils # 13.0 H Seg Neutrophils # Man Lymphocytes # (Manual) D-Dimer POC ABG pH POC ABG pO2 Carbon Dioxide Creatinine Magnesium 1.60 L Lactate Dehydrogenase C-Reactive Protein Total Protein Albumin Free T4 Chest x-ray: image reviewed
[2017-04-03] MEDS: CAPOTEN PO SCH ×2 (13:46→22:00)
--- NOTE | 2017-04-03 14:38 | Progress Note ---
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%); Acute Resp Distress; Anxiety Patient reports: appetite normal (clear liquids ), voiding normally, pain well controlled, flatus, bowel movement, ambulating normally : doing well Objective - Vital Signs Latest vital signs: Vital Signs Temp Pulse Pulse Resp BP Pulse Ox 04/03/17 13:46 109 H 142/94 04/03/17 13:45 101 H 142/94 04/03/17 12:00 98.5 F 04/03/17 11:00 115 H 28 H 123/73 93 04/03/17 10:00 117 H 24 133/76 93 04/03/17 09:09 139 H 168/111 98 04/03/17 09:00 120 H 168/90 04/03/17 08:17 134 H 21 168/111 04/03/17 08:00 99.9 F H 129 H 04/03/17 07:00 125 H 29 H 168/111 04/03/17 06:01 132 H 20 158/102 04/03/17 06:00 24 04/03/17 05:00 114 H 41 H 158/102 95 04/03/17 04:00 110 H 132 H 38 H 152/97 92 04/03/17 03:47 99.8 F H 04/03/17 03:00 118 H 31 H 154/98 94 04/03/17 02:00 114 H 21 159/105 97 04/03/17 01:01 103 H 39 H 151/97 94 04/03/17 00:00 99 F 107 H 128 H 40 H 136/88 95 04/02/17 23:48 98.9 F 04/02/17 23:00 115 H 31 H 126/78 100 04/02/17 22:37 111 H 40 H 123/84 100 04/02/17 22:28 107 H 42 H 123/84 100 04/02/17 22:00 113 H 51 H 123/84 96 04/02/17 21:00 116 H 40 H 128/83 95 04/02/17 20:05 149/95 04/02/17 20:00 116 H 53 H 167/101 97 04/02/17 19:46 100 F H 04/02/17 19:00 108 H 39 H 149/95 95 04/02/17 18:45 115 H 43 H 142/86 96 04/02/17 18:31 113 H 45 H 142/86 96 04/02/17 18:15 115 H 29 H 142/86 96 04/02/17 18:01 113 H 52 H 142/86 97 04/02/17 17:45 115 H 20 119/80 97 04/02/17 17:31 115 H 14 119/80 96 04/02/17 17:15 115 H 18 119/80 97 04/02/17 17:00 112 H 27 H 119/80 95 04/02/17 16:45 105 H 29 H 110/55 99 04/02/17 16:31 109 H 18 110/55 99 04/02/17 16:15 105 H 26 H 110/55 99 04/02/17 16:00 98.5 F 103 H 30 H 110/55 100 04/02/17 15:45 109 H 39 H 107/65 98 04/02/17 15:31 109 H 26 H 107/65 98 04/02/17 15:15 114 H 11 L 107/65 100 04/02/17 15:00 112 H 38 H 107/65 97 04/02/17 14:45 115 H 40 H 100/64 99 Intake and Output 04/02/17 04/03/17 04/03/17 22:59 06:59 14:59 Intake Total 50 300 Balance 50 300 Intake: IV 300 ROCEPHIN/NS 1 GM/50 ML 1 50 gm In 50 ml @ 100 mls/hr IV Q24HR JOSE Rx#: [id number] Zithromax 500 mg In NaCl 250 0.9% 250Ml 250 ml @ 250 mls/hr IV Q24HR [facility] Rx#: [id number] Oral 50 Other: Total, Intake Amount 50 Voiding Method Toilet Toilet Weight 141.8 kg 139.9 kg - Exam Breasts: Present: normal Cardiovascular: Present: Regular rate, Normal S1 Lungs: Present: Clear to auscultation, Normal air movement Abdomen: Present: normal appearance, soft, normal bowel sounds. Absent: distention, tenderness Vulva: both: normal Uterus: Present: normal, firm, fundal height below umbilicus. Absent: bogginess , tenderness Extremities: Present: normal Deep Tendon Reflex Grade: Normal +2 Incision: Present: normal, dry, intact - Labs Labs: Abnormal lab results 04/02/17 04/03/17 04/03/17 Range/Units 13:54 04:46 04:46 WBC (4.5-11.0) K/mm3 RBC (3.65-5.03) M/mm3 Hgb (10.1-14.3) gm/dl Hct (30.3-42.9) % MCH (28-32) pg RDW (13.2-15.2) % Lymph % (Auto) (13.4-35.0) % [place] % (Auto) (0.0-7.3) % [place] # (0.0-0.8) K/mm3 Seg Neutrophils % (40.0-70.0) % Seg Neutrophils # (1.8-7.7) K/mm3 Carbon Dioxide 31 H D (22-30) mmol/L Creatinine 0.5 L (0.7-1.2) mg/dL Magnesium 1.60 L (1.7-2.3) mg/dL C-Reactive Protein 20.50 H (0.00-1.30) mg/dL 04/03/17 Range/Units 04:46 WBC 16.0 H (4.5-11.0) K/mm3 RBC 3.34 L (3.65-5.03) M/mm3 Hgb 8.7 L (10.1-14.3) gm/dl Hct 26.5 L (30.3-42.9) % MCH 26 L (28-32) pg RDW 19.2 H (13.2-15.2) % Lymph % (Auto) 9.3 L (13.4-35.0) % [place] % (Auto) 8.2 H (0.0-7.3) % [place] # 1.3 H (0.0-0.8) K/mm3 Seg Neutrophils % 81.2 H (40.0-70.0) % Seg Neutrophils # 13.0 H (1.8-7.7) K/mm3 Carbon Dioxide (22-30) mmol/L Creatinine (0.7-1.2) mg/dL Magnesium (1.7-2.3) mg/dL C-Reactive Protein (0.00-1.30) mg/dL
--- NOTE | 2017-04-03 15:13 | Progress Note ---
Assessment and Plan Assessment and plan: 26-year-old woman who is postoperative day 1 status post section who is in the ICU, she apparently had an episode of ventricular tachycardia in the recovery room, she is currently in ICU on supplemental oxygen Acute hypoxic respiratory failure Due to CHF, infiltrate resolved with lasix, dc abx treat underlying [place] which is Acute systolic CHF CXR reviewed with bilateral pulmonary infiltrates, slightly prominent bronchovascular markings. Decrease diuresis to PO lasix, 40mg daily. Replete Mg, on oral Mg BID Cont labetalol to 100mg PO TID. Hold for HR <60 and/or SBP <100. Increase captopril to 25mg PO BID. pulmonary consult appreciated Acute systolic CHF with pulmonary vascular congestion * PPCM * Cardiology consult appreciated, EF 30% * She was warned of the risk of recurrence if she's having another child in the future * And medications were adjusted,, IV Lasix continued * She was warned that she cannot breast-feed on the medication she is on at this time. She is to pump and dump * Oral Mg repletion History of PE CT angiogram was negative for PE on this admission, continue Lovenox for VTE prophylaxis Ventricular tachycardia/ sinus tachycardia Currently patient has sinus tachycardia, apparently she had short runs of ventricular tachycardia in the recovery room, as well as bradycardia but I'm unable to find any EKG or strips to confirm this sinus tachycardia at the moment, continue telemetry thyroid function tests within normal limits DVT prophylaxis Patient is fully anticoagulated Case was discussed with cardiology , fire information officer, Obygyn and the patient, Tentative transfer to Telemetry floor today if she continues to improve The high probability of a clinically significant, sudden or life threatening deterioration of the [cardiovascular, pulmonary and hematologic] system(s) required my full and direct attention, intervention and personal management. The aggregate critical care time was [33] minutes. This time is in addition to time spent performing reported procedures but includes the following: [] Data Review and interpretation [] Patient assessment and monitoring of vital signs [] Documentation [] Medication orders and management History Interval history: SOB is improved, oxygen requirement has reduced Hospitalist Physical - Physical exam Narrative exam: General: no distress HEENT: MMM, EOMI cardiac: S1-S2 heard lungs: decreased air entry, bibasilar crackles abdomen: soft, nontender, nondistended bowel sounds positive extremities: no edema clubbing or cyanosis Skin: no rash or lesion Neuro: no focal deficit Psych: appropriate behavior and mood, cognition intact - Constitutional Vitals: Temp Pulse Resp BP Pulse Ox 98.5 F 100 H 38 H 142/94 93 04/03/17 12:00 04/03/17 14:01 04/03/17 14:01 04/03/17 14:01 04/03/17 13:00 General appearance: Present: mild distress Results - Labs CBC & Chem 7: 04/03/17 04:46 04/03/17 04:46 Labs: Laboratory Last Values WBC 16.0 K/mm3 (4.5-11.0) H 04/03/17 04:46 RBC 3.34 M/mm3 (3.65-5.03) L 04/03/17 04:46 Hgb 8.7 gm/dl (10.1-14.3) L 04/03/17 04:46 Hct 26.5 % (30.3-42.9) L 04/03/17 04:46 MCV 79 fl (79-97) 04/03/17 04:46 MCH 26 pg (28-32) L 04/03/17 04:46 MCHC 33 % (30-34) 04/03/17 04:46 RDW 19.2 % (13.2-15.2) H 04/03/17 04:46 Plt Count 260 K/mm3 (140-440) 04/03/17 04:46 Lymph % (Auto) 9.3 % (13.4-35.0) L 04/03/17 04:46 [place] % (Auto) 8.2 % (0.0-7.3) H 04/03/17 04:46 Eos % (Auto) 1.1 % (0.0-4.3) 04/03/17 04:46 Baso % (Auto) 0.2 % (0.0-1.8) 04/03/17 04:46 Lymph # 1.5 K/mm3 (1.2-5.4) 04/03/17 04:46 [place] # 1.3 K/mm3 (0.0-0.8) H 04/03/17 04:46 Eos # 0.2 K/mm3 (0.0-0.4) 04/03/17 04:46 Baso # 0.0 K/mm3 (0.0-0.1) 04/03/17 04:46 Add Manual Diff Complete 04/01/17 00:02 Total Counted 100 04/01/17 00:02 Seg Neutrophils % 81.2 % (40.0-70.0) H 04/03/17 04:46 Seg Neuts % (Manual) 71.0 % (40.0-70.0) H 04/01/17 00:02 Band Neutrophils % 22.0 % 04/01/17 00:02 Lymphocytes % (Manual) 2.0 % (13.4-35.0) L 04/01/17 00:02 Reactive Lymphs % (Man) 0 % 04/01/17 00:02 Monocytes % (Manual) 4.0 % (0.0-7.3) 04/01/17 00:02 Eosinophils % (Manual) 0 % (0.0-4.3) 04/01/17 00:02 Basophils % (Manual) 0 % (0.0-1.8) 04/01/17 00:02 Metamyelocytes % 0 % 04/01/17 00:02 Myelocytes % 1.0 % 04/01/17 00:02 Promyelocytes % 0 % 04/01/17 00:02 Blast Cells % 0 % 04/01/17 00:02 Nucleated RBC % Not Reportable 04/01/17 00:02 Seg Neutrophils # 13.0 K/mm3 (1.8-7.7) H 04/03/17 04:46 Seg Neutrophils # Man 12.4 K/mm3 (1.8-7.7) H 04/01/17 00:02 Band Neutrophils # 3.9 K/mm3 04/01/17 00:02 Lymphocytes # (Manual) 0.4 K/mm3 (1.2-5.4) L 04/01/17 00:02 Abs React Lymphs (Man) 0.0 K/mm3 04/01/17 00:02 Monocytes # (Manual) 0.7 K/mm3 (0.0-0.8) 04/01/17 00:02 Eosinophils # (Manual) 0.0 K/mm3 (0.0-0.4) 04/01/17 00:02 Basophils # (Manual) 0.0 K/mm3 (0.0-0.1) 04/01/17 00:02 Metamyelocytes # 0.0 K/mm3 04/01/17 00:02 Myelocytes # 0.2 K/mm3 04/01/17 00:02 Promyelocytes # 0.0 K/mm3 04/01/17 00:02 Blast Cells # 0.0 K/mm3 04/01/17 00:02 WBC Morphology Not Reportable 04/01/17 00:02 Hypersegmented Neuts Not Reportable 04/01/17 00:02 Hyposegmented Neuts Not Reportable 04/01/17 00:02 Hypogranular Neuts Not Reportable 04/01/17 00:02 Smudge Cells Not Reportable 04/01/17 00:02 Toxic Granulation Not Reportable 04/01/17 00:02 Toxic Vacuolation Not Reportable 04/01/17 00:02 Dohle Bodies Not Reportable 04/01/17 00:02 Pelger-Huet Anomaly Not Reportable 04/01/17 00:02 Prosper Rods Not Reportable 04/01/17 00:02 Platelet Estimate Consistent w auto 04/01/17 00:02 Clumped Platelets Not Reportable 04/01/17 00:02 Plt Clumps, EDTA Not Reportable 04/01/17 00:02 Large Platelets Not Reportable 04/01/17 00:02 Giant Platelets Not Reportable 04/01/17 00:02 Platelet Satelliting Not Reportable 04/01/17 00:02 Plt Morphology Comment Not Reportable 04/01/17 00:02 RBC Morphology Not Reportable 04/01/17 00:02 Dimorphic RBCs Not Reportable 04/01/17 00:02 Polychromasia Few 04/01/17 00:02 Hypochromasia Not Reportable 04/01/17 00:02 Poikilocytosis Not Reportable 04/01/17 00:02 Anisocytosis 1+ 04/01/17 00:02 Microcytosis Not Reportable 04/01/17 00:02 Macrocytosis Not Reportable 04/01/17 00:02 Spherocytes Not Reportable 04/01/17 00:02 Pappenheimer Bodies Not Reportable 04/01/17 00:02 Sickle Cells Not Reportable 04/01/17 00:02 Target Cells Not Reportable 04/01/17 00:02 Tear Drop Cells Not Reportable 04/01/17 00:02 Ovalocytes Not Reportable 04/01/17 00:02 Helmet Cells Not Reportable 04/01/17 00:02 [place] Bodies Not Reportable 04/01/17 00:02 Couch Rings Not Reportable 04/01/17 00:02 [place] Cells Not Reportable 04/01/17 00:02 Bite Cells Not Reportable 04/01/17 00:02 Crenated Cell Not Reportable 04/01/17 00:02 Elliptocytes Not Reportable 04/01/17 00:02 Acanthocytes (Spur) Not Reportable 04/01/17 00:02 Rouleaux Not Reportable 04/01/17 00:02 Hemoglobin C Crystals Not Reportable 04/01/17 00:02 Schistocytes Not Reportable 04/01/17 00:02 Malaria parasites Not Reportable 04/01/17 00:02 Mikal Bodies Not Reportable 04/01/17 00:02 Hem Pathologist Commnt No 04/01/17 00:02 D-Dimer 9484.24 ng/mlDDU (0-234) H 04/01/17 00:02 POC ABG pH 7.349 (7.35-7.45) L 04/01/17 10:11 POC ABG pCO2 39.4 (35-45) 04/01/17 10:11 POC ABG pO2 133 (80-105) H 04/01/17 10:11 POC ABG HCO3 21.7 04/01/17 10:11 POC ABG Total CO2 23 04/01/17 10:11 POC ABG O2 Sat 99 04/01/17 10:11 POC ABG Base Excess -4 04/01/17 10:11 FiO2 50 % 04/01/17 10:11 Sodium 140 mmol/L (137-145) 04/03/17 04:46 Potassium 3.7 mmol/L (3.6-5.0) 04/03/17 04:46 Chloride 101.4 mmol/L (98-107) 04/03/17 04:46 Carbon Dioxide 31 mmol/L (22-30) H D 04/03/17 04:46 Anion Gap 11 mmol/L 04/03/17 04:46 BUN 7 mg/dL (7-17) 04/03/17 04:46 Creatinine 0.5 mg/dL (0.7-1.2) L 04/03/17 04:46 Estimated GFR > 60 ml/min 04/03/17 04:46 BUN/Creatinine Ratio 14.00 % 04/03/17 04:46 Glucose 87 mg/dL (65-100) 04/03/17 04:46 Lactic Acid 0.80 mmol/L (0.7-2.0) 04/02/17 13:54 Uric Acid 4.6 mg/dL (3.5-7.6) 04/01/17 00:02 Calcium 8.4 mg/dL (8.4-10.2) 04/03/17 04:46 Magnesium 1.60 mg/dL (1.7-2.3) L 04/03/17 04:46 Total Bilirubin 0.50 mg/dL (0.1-1.2) 04/01/17 00:02 AST 19 units/L (5-40) 04/01/17 00:02 ALT 9 units/L (7-56) 04/01/17 00:02 Alkaline Phosphatase 122 units/L (35-129) 04/01/17 00:02 Lactate Dehydrogenase 293 units/L (91-180) H 04/01/17 17:05 C-Reactive Protein 20.50 mg/dL (0.00-1.30) H 04/02/17 13:54 Total Protein 5.9 g/dL (6.3-8.2) L 04/01/17 00:02 Albumin 2.7 g/dL (3.9-5) L 04/01/17 00:02 Albumin/Globulin Ratio 0.8 % 04/01/17 00:02 TSH 3.760 mlU/mL (0.270-4.200) 04/01/17 17:05 Free T4 0.45 ng/dL (0.76-1.46) L 04/01/17 17:05 Urine Color Yellow (Yellow) 03/31/17 14:00 Urine Turbidity Clear (Clear) 03/31/17 14:00 Urine pH 6.0 (5.0-7.0) 03/31/17 14:00 Ur Specific [place] 1.018 (1.003-1.030) 03/31/17 14:00 Urine Protein 30 mg/dl mg/dL (Negative) 03/31/17 14:00 Urine Glucose (UA) Neg mg/dL (Negative) 03/31/17 14:00 Urine Ketones 80 mg/dL (Negative) 03/31/17 14:00 Urine Blood Neg (Negative) 03/31/17 14:00 Urine Nitrite Neg (Negative) 03/31/17 14:00 Urine Bilirubin Neg (Negative) 03/31/17 14:00 Urine Urobilinogen < 2.0 mg/dL (<2.0) 03/31/17 14:00 Ur Leukocyte Esterase Neg (Negative) 03/31/17 14:00 Urine WBC (Auto) 1.0 /HPF (0.0-6.0) 03/31/17 14:00 Urine RBC (Auto) 1.0 /HPF (0.0-6.0) 03/31/17 14:00 U Epithel Cells (Auto) 1.0 /HPF (0-13.0) 03/31/17 14:00 Urine Mucus 1+ /HPF 03/31/17 14:00 Blood Type B POSITIVE 03/30/17 22:27 Antibody Screen TNR 03/30/17 22:27 ASHLEY Antibody Screen Negative 03/30/17 22:27
[2017-04-03] MEDS: NORCO 5/325 PO PRN (22:00)
[2017-04-04] MEDS: NORCO 5/325 PO PRN ×3 (02:21→23:29)
--- NOTE | 2017-04-04 08:53 | Progress Note ---
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%); Acute Resp Distress; Anxiety Patient reports: appetite normal, voiding normally, pain well controlled, flatus , bowel movement, ambulating normally : doing well (at home with family members ) Objective - Vital Signs Latest vital signs: Vital Signs Temp Pulse Pulse Resp BP BP Pulse Ox 04/04/17 08:02 99.0 F 104 H 20 140/93 96 04/04/17 05:29 98.4 F 99 H 20 140/94 98 04/04/17 04:00 102 H 04/04/17 00:00 98.8 F 107 H 20 131/79 99 04/03/17 19:50 99.2 F 119 H 20 139/82 100 04/03/17 18:23 99.2 F 108 H 22 140/94 98 04/03/17 16:00 110 H 26 H 142/94 04/03/17 15:37 114 H 20 142/94 04/03/17 14:01 100 H 38 H 142/94 04/03/17 13:46 109 H 142/94 04/03/17 13:45 101 H 142/94 04/03/17 13:00 108 H 42 H 142/94 93 04/03/17 12:00 98.5 F 111 H 17 128/83 96 04/03/17 11:00 115 H 28 H 123/73 93 04/03/17 10:00 117 H 24 133/76 93 04/03/17 09:09 139 H 168/111 98 04/03/17 09:00 120 H 168/90 Intake and Output 04/03/17 04/04/17 04/04/17 22:59 06:59 14:59 Intake Total 480 480 Balance 480 480 Intake: Oral 480 480 Other: Total, Intake Amount 240 480 Voiding Method Toilet Toilet # Voids Void 2 Weight 132.2 kg - Exam Breasts: Present: normal Cardiovascular: Present: Regular rate Lungs: Present: Clear to auscultation Abdomen: Present: normal appearance, soft, normal bowel sounds. Absent: distention, tenderness Vulva: both: normal Uterus: Present: normal, firm, fundal height below umbilicus (3cm below ). Absent: bogginess, tenderness Deep Tendon Reflex Grade: Normal +2 Incision: Present: normal, dry, intact
[2017-04-04] MEDS: PEPCID PO SCH ×2 (09:30→22:45)
[2017-04-04] MEDS: CAPOTEN PO SCH ×2 (09:30→22:45)
[2017-04-04] MEDS: LASIX PO SCH (09:30)
[2017-04-04] MEDS: MAG-OX PO SCH (09:30)
[2017-04-04] MEDS: LOVENOX SUB-Q SCH ×2 (09:30→22:45)
[2017-04-04] MEDS: FEOSOL PO SCH (09:30)
[2017-04-04] MEDS: NORMODYNE PO SCH ×3 (09:30→21:45)
--- NOTE | 2017-04-04 11:11 | Progress Note ---
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 Ejection fraction 35%. Continue IV diuretics per cardiology recommendations Acute systolic CHF: Secondary to above. Continue beta blockers and ACEI and intravenous diuretics Anemia normocytic type: Monitor H&H Leukocytosis: No focus of infection. Likely acute phase reactant. Off antibiotics. Will monitor Hypertension: Well-controlled. Continue beta eugenio Morbid obesity: Nutrition counseling Subjective: Patient is alert and oriented She offers no specific complaints except some pain at the operated site Denies chest pain or shortness of breath Denies fever or chills or cough Objective - Constitutional Vitals: Vital Signs - 12hr 04/04/17 04/04/17 04/04/17 00:00 04:00 05:29 Temperature 98.8 F 98.4 F Pulse Rate 102 H Pulse Rate [ 107 H 99 H Left Radial] Respiratory 20 20 Rate Blood Pressure 131/79 140/94 [Left Arm] O2 Sat by Pulse 99 98 Oximetry 04/04/17 08:02 Temperature 99.0 F Pulse Rate Pulse Rate [ 104 H Left Radial] Respiratory 20 Rate Blood Pressure 140/93 [Left Arm] O2 Sat by Pulse 96 Oximetry General appearance: Present: no acute distress, obese - EENT Eyes: PERRL, EOM intact ENT: hearing intact, clear oral mucosa, no thrush - Neck Neck: supple, normal ROM, no masses or JVD - Respiratory Respiratory effort: normal Respiratory: bilateral: CTA - Cardiovascular Rhythm: regular Heart Sounds: Present: S1 & S2 Extremities: No edema - Gastrointestinal General gastrointestinal: Present: soft, non-tender. Absent: hepatomegaly, splenomegaly - Integumentary Integumentary: clear - Musculoskeletal Musculoskeletal: strength equal bilaterally - Neurologic Neurologic: no focal deficits - Psychiatric Psychiatric: appropriate mood/affect - Labs CBC & Chem 7: 04/03/17 04:46 04/03/17 04:46
--- NOTE | 2017-04-04 11:41 | Progress Note ---
Assessment and Plan Assessment: Right Upper Quadrant Pain 12 lead EKG consider RUQ US if okay with primary team Liv- cardiomyopathy EF 35-40% Post-, s/p 03/31/2017 Continue labetalol/captopril/po lasix (Drugs are transferred into milk at very low levels. Captopril and enalapril may be used in lactating women. However, newborns may be more susceptible to the hemodynamic effects of these drugs, such as hypotension, and sequelae such as oliguria and seizures. Therefore, we suggest that the hemodynamic status of the infant be taken into account when deciding whether women taking these drugs should breastfeed.) Early mild acute systolic heart failure strict I/O Pneumonia/hypoxia CTA chest: no dissection, no Pulmonary embolus currently no antibiotics CXR 04/03: infiltrates on previous study not well appreciated, likely PVC/CHF History of Pulmonary embolus 2013 Sinus tachycardia improved pauses overnight while patient sleeping, recommend sleep study, will likely benefit from CPAP Hypertension Anemia Subjective Date of service: 04/04/17 Principal diagnosis: 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 She states that this is different than her incisional pain from her . She denies any right flank pain. She denies any shortness of breath or chest pain. Objective Vital Signs Temp Pulse Pulse Resp BP BP Pulse Ox 04/04/17 08:02 99.0 F 104 H 20 140/93 96 04/04/17 05:29 98.4 F 99 H 20 140/94 98 04/04/17 04:00 102 H 04/04/17 00:00 98.8 F 107 H 20 131/79 99 04/03/17 19:50 99.2 F 119 H 20 139/82 100 04/03/17 18:23 99.2 F 108 H 22 140/94 98 04/03/17 16:00 110 H 26 H 142/94 04/03/17 15:37 114 H 20 142/94 04/03/17 14:01 100 H 38 H 142/94 04/03/17 13:46 109 H 142/94 04/03/17 13:45 101 H 142/94 04/03/17 13:00 108 H 42 H 142/94 93 07/14/17 12:00 98.5 F 111 H 17 128/83 96 - Physical Examination General: No Apparent Distress HEENT: Positive: PERRL, Normocephaly, Mucus Membranes Moist Neck: Positive: neck supple, trachea midline Cardiac: Positive: Regular Rate, Tachycardia Lungs: Positive: Normal Exam, clear to auscultation, Normal Breath Sounds Neuro: Positive: Grossly Intact, Cranial Nerve 2-12 Intact Abdomen: Positive: Soft, Active Bowel Sounds Skin: Negative: Rash, Suspicious Lesions Incision: Incision Site () Musculoskeletal: No Fluid Collection, No Pain, Normal Range of Motion Extremities: Present: warm. Absent: edema - Imaging and Cardiology EKG: report reviewed, image reviewed Echo: report reviewed (ECHO 04/01: EF 35-40%, mild LVH) - EKG Sinus rhythms and dysrhythmias: sinus tachycardia
[2017-04-04 12:13] LABS: BUN/Creatinine Ratio 13.33; Blood Urea Nitrogen 8 mg/dL (7-17); Calcium 8.7 mg/dL (8.4-10.2); Carbon Dioxide 24 mmol/L (22-30); Chloride 101.9 mmol/L (98-107); Glucose 83 mg/dL (65-100); Potassium 3.4 mmol/L (3.6-5.0); Sodium 141 mmol/L (137-145)
[2017-04-04 12:22] LABS: Anion Gap 19 mmol/L
[2017-04-04] MEDS: PRENATAL VITAMIN PO SCH (13:01)
--- NOTE | 2017-04-04 15:54 | Progress Note ---
Assessment and Plan - Patient Problems (1) Aspiration pneumonia Status: Acute Qualifiers: Aspiration pneumonia type: A Laterality: L Lung location: L Plan to address problem: - continue current AB's till adjusted by ID - continue supplemental oxygen to keep sats > 94% - continue BIPAP qhs - prn zofran - gentle diuresis for pulmonary edema element (2) Cardiomyopathy, peripartum, Status: Acute Plan to address problem: - gentle diuresis - IV fluids stopped - BODY SANDER to cruise counselor re: repeat risk - ECHO reviewed (35-40% EF) - per cardiology otherwise (3) Obesity Status: Acute Qualifiers: Obesity type: due to excess calories Obesity classification: adult class 3 (BMI >= 40) Serious obesity comorbidity presence: with serious comorbidity Body mass index: B Plan to address problem: - weight loss recommended (should loose weight also) - outpatient sleep clinic evaluation (4) Anxiety Status: Acute Plan to address problem: - much improved (5) Dyspnea Status: Acute Qualifiers: Dyspnea type: D Plan to address problem: - element due to above - improved (6) Pulmonary edema Status: Acute Qualifiers: Chronicity: C Plan to address problem: - rapidity of improvement and negative fluid balance (>3.5L) suggest there was a significant pulmonary edema component - gentle diuresis (7) Discharge planning issues Status: Acute Plan to address problem: - per attending at this point Subjective Date of service: 04/04/17 Principal diagnosis: 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%); Acute Resp Distress; Anxiety Interval history: Seen and examined at bedside; 24 hour events reviewed; nursing and respiratory care staff consulted; no adverse overnight events reported to me; continues to do well; tolerating gentle diuresis; her baby is also doing well; denies acute chest pains or increased SOB Objective Vital Signs - 12hr 04/04/17 04/04/17 04/04/17 04:00 05:29 08:02 Temperature 98.4 F 99.0 F Pulse Rate 102 H Pulse Rate [ Apical] Pulse Rate [ 99 H 104 H Left Radial] Respiratory 20 20 Rate Blood Pressure 140/94 140/93 [Left Arm] O2 Sat by Pulse 98 96 Oximetry 04/04/17 04/04/17 10:00 11:44 Temperature 99.0 F Pulse Rate Pulse Rate [ 106 H Apical] Pulse Rate [ 106 H Left Radial] Respiratory 20 Rate Blood Pressure 139/91 [Left Arm] O2 Sat by Pulse 99 94 Oximetry Constitutional: no acute distress, alert Eyes: non-icteric ENT: oropharynx moist Neck: supple, no lymphadenopathy, no JVD Effort: mildly labored Ascultation: Bilateral: clear, diminished breath sounds Cardiovascular: regular rate and rhythm, other (tachycardia, no murmurs, ) Gastrointestinal: normoactive bowel sounds, hypoactive bowel sounds, soft, tender (mildy , dry dressing suprpubically, [place] catheter) Integumentary: normal Extremities: no cyanosis, no edema, pulses normal, no ischemia or petechiae Neurologic: normal mental status, non-focal exam, pupils equal and round, CN II- XII normal Psychiatric: mood appropriate, affect normal CBC and BMP: 04/05/17 07:26 04/04/17 10:18 ABG, PT/INR, D-dimer: ABG POC ABG pH 7.349 (7.35-7.45) L 04/01/17 10:11 POC ABG pCO2 39.4 (35-45) 04/01/17 10:11 POC ABG pO2 133 (80-105) H 04/01/17 10:11 POC ABG HCO3 21.7 04/01/17 10:11 POC ABG Total CO2 23 04/01/17 10:11 POC ABG O2 Sat 99 04/01/17 10:11 PT/INR, D-dimer D-Dimer 9484.24 ng/mlDDU (0-234) H 04/01/17 00:02 Abnormal lab findings: Abnormal Labs 03/30/17 03/31/17 03/31/17 22:27 10:11 10:11 WBC RBC Hgb Hct MCV 78 L MCH 26 L 26 L RDW 18.7 H 18.3 H Lymph % (Auto) [place] % (Auto) Yates # Seg Neutrophils % Seg Neuts % (Manual) Lymphocytes % (Manual) Seg Neutrophils # Seg Neutrophils # Man Lymphocytes # (Manual) D-Dimer POC ABG pH POC ABG pO2 Potassium Carbon Dioxide Creatinine 0.5 L Magnesium Lactate Dehydrogenase 218 H C-Reactive Protein Total Protein Albumin Free T4 04/01/17 04/01/17 04/01/17 00:02 00:02 00:02 WBC 17.5 H RBC Hgb Hct MCV MCH 26 L RDW 18.7 H Lymph % (Auto) [place] % (Auto) [place] # Seg Neutrophils % Seg Neuts % (Manual) 71.0 H Lymphocytes % (Manual) 2.0 L Seg Neutrophils # Seg Neutrophils # Man 12.4 H Lymphocytes # (Manual) 0.4 L D-Dimer 9484.24 H POC ABG pH POC ABG pO2 Potassium Carbon Dioxide 20 L Creatinine 0.6 L Magnesium Lactate Dehydrogenase C-Reactive Protein Total Protein 5.9 L Albumin 2.7 L Free T4 04/01/17 04/01/17 04/01/17 10:11 17:05 17:05 WBC RBC Hgb Hct MCV MCH RDW Lymph % (Auto) [place] % (Auto) [place] # Seg Neutrophils % Seg Neuts % (Manual) Lymphocytes % (Manual) Seg Neutrophils # Seg Neutrophils # Man Lymphocytes # (Manual) D-Dimer POC ABG pH 7.349 L POC ABG pO2 133 H Potassium Carbon Dioxide Creatinine Magnesium 1.40 L Lactate Dehydrogenase 293 H C-Reactive Protein Total Protein Albumin Free T4 04/01/17 04/02/17 04/03/17 17:05 13:54 04:46 WBC RBC Hgb Hct MCV MCH RDW Lymph % (Auto) [place] % (Auto) [place] # Seg Neutrophils % Seg Neuts % (Manual) Lymphocytes % (Manual) Seg Neutrophils # Seg Neutrophils # Man Lymphocytes # (Manual) D-Dimer POC ABG pH POC ABG pO2 Potassium Carbon Dioxide 31 H D Creatinine 0.5 L Magnesium Lactate Dehydrogenase C-Reactive Protein 20.50 H Total Protein Albumin Free T4 0.45 L 04/03/17 04/03/17 04/04/17 04:46 04:46 10:18 WBC 16.0 H RBC 3.34 L Hgb 8.7 L Hct 26.5 L MCV MCH 26 L RDW 19.2 H Lymph % (Auto) 9.3 L [place] % (Auto) 8.2 H [place]ates # 1.3 H Seg Neutrophils % 81.2 H Seg Neuts % (Manual) Lymphocytes % (Manual) Seg Neutrophils # 13.0 H Seg Neutrophils # Man Lymphocytes # (Manual) D-Dimer POC ABG pH POC ABG pO2 Potassium 3.4 L Carbon Dioxide Creatinine 0.6 L Magnesium 1.60 L Lactate Dehydrogenase C-Reactive Protein Total Protein Albumin Free T4
[2017-04-05] MEDS ORDERED: K-DUR PO ONE (07:45)
[2017-04-05 07:53] VITALS: BP 147/98
[2017-04-05] MEDS: NORMODYNE PO SCH (08:26)
[2017-04-05 08:50] LABS: Hematocrit 25.4 % (30.3-42.9); Hemoglobin 8.5 gm/dl (10.1-14.3); Mean Corpuscular HGB Conc 34 % (30-34); Mean Corpuscular Hemoglobin 27 pg (28-32); Mean Corpuscular Volume 80 fl (79-97); Platelet Count 315 K/mm3 (140-440); Red Blood Count 3.17 M/mm3 (3.65-5.03); Red Cell Distribution Width 18.8 % (13.2-15.2); White Blood Count 10.9 K/mm3 (4.5-11.0)
--- NOTE | 2017-04-05 08:51 | Event Note ---
Date: 04/04/17 I received an ID consultation request from the ICU regarding this patient. I have reviewed the chart for orders and details for the consultation question. I do not see an order for an ID consult. I, also, do not see any clear infectious concerns as a focus for the consultation. I will therefore cancel the consultation. If ID support is needed, please do not hesitate to contact me with the concern.
[2017-04-05] MEDS: LASIX PO SCH (10:14)
[2017-04-05] MEDS: PRENATAL VITAMIN PO SCH (10:14)
[2017-04-05] MEDS: CAPOTEN PO SCH (10:14)
[2017-04-05] MEDS: FEOSOL PO SCH (10:15)
[2017-04-05] MEDS: LOVENOX SUB-Q SCH (10:15)
[2017-04-05] MEDS: PEPCID PO SCH (10:15)
--- NOTE | 2017-04-05 10:48 | Progress Note ---
Assessment and Plan Assessment and plan: --Peripartum cardiomyopathy: H/O Recent section. Ejection fraction 35%. Continue diuretics and output monitoring --Acute systolic CHF: Continue current management Anemia normocytic type: Monitor H&H --Leukocytosis: Resolved --Hypertension: Well-controlled. Continue beta eugenio --Morbid obesity: Nutrition counseling, advised dietary modification and exercise as tolerated and weight reduction. When medically stable --DVT prophylaxis with Lovenox I discussed the case with patient's BANKRUPTCY PROCESSOR and antisubmarine weapons officer Medically stable for discharge I will sign off He needs to follow with primary care physician and antisubmarine weapons officer per schedule Plan of care discussed with the patient as well as the nurse History Interval history: Patient seen and evaluated in her room this morning. Medical records reviewed No new events reported by the nursing staff, patient feels comfortable Denies any chest pain or shortness of breath , Alert, awake, oriented 3, not in acute distress, morbidly obese Vital signs reviewed Hospitalist Physical - Constitutional Vitals: Temp Pulse Resp BP Pulse Ox 98.5 F 93 H 20 147/98 96 04/05/17 07:52 04/05/17 10:19 04/05/17 07:52 04/05/17 07:52 04/05/17 07:52 General appearance: Present: no acute distress, well-nourished, obese - EENT Eyes: Present: PERRL, EOM intact - Neck Neck: Present: supple, normal ROM - Respiratory Respiratory effort: normal Respiratory: bilateral: diminished, negative: rales, rhonchi, wheezing - Cardiovascular Rhythm: regular Heart Sounds: Present: S1 & S2 - Extremities Extremities: no ischemia, No edema - Abdominal General gastrointestinal: soft, non-tender, non-distended, normal bowel sounds - Integumentary Integumentary: Present: clear, warm - Psychiatric Psychiatric: appropriate mood/affect, cooperative - Neurologic Neurologic: CNII-XII intact, moves all extremities Results - Labs CBC & Chem 7: 04/05/17 07:26 04/04/17 10:18 Labs: Laboratory Last Values WBC 10.9 K/mm3 (4.5-11.0) 04/05/17 07:26 RBC 3.17 M/mm3 (3.65-5.03) L 04/05/17 07:26 Hgb 8.5 gm/dl (10.1-14.3) L 04/05/17 07:26 Hct 25.4 % (30.3-42.9) L 04/05/17 07:26 MCV 80 fl (79-97) 04/05/17 07:26 MCH 27 pg (28-32) L 04/05/17 07:26 MCHC 34 % (30-34) 04/05/17 07:26 RDW 18.8 % (13.2-15.2) H 04/05/17 07:26 Plt Count 315 K/mm3 (140-440) 04/05/17 07:26 Lymph % (Auto) 9.3 % (13.4-35.0) L 04/03/17 04:46 [place] % (Auto) 8.2 % (0.0-7.3) H 04/03/17 04:46 Eos % (Auto) 1.1 % (0.0-4.3) 04/03/17 04:46 Baso % (Auto) 0.2 % (0.0-1.8) 04/03/17 04:46 Lymph # 1.5 K/mm3 (1.2-5.4) 04/03/17 04:46 [place] # 1.3 K/mm3 (0.0-0.8) H 04/03/17 04:46 Eos # 0.2 K/mm3 (0.0-0.4) 04/03/17 04:46 Baso # 0.0 K/mm3 (0.0-0.1) 04/03/17 04:46 Add Manual Diff Complete 04/01/17 00:02 Total Counted 100 04/01/17 00:02 Seg Neutrophils % 81.2 % (40.0-70.0) H 04/03/17 04:46 Seg Neuts % (Manual) 71.0 % (40.0-70.0) H 04/01/17 00:02 Band Neutrophils % 22.0 % 04/01/17 00:02 Lymphocytes % (Manual) 2.0 % (13.4-35.0) L 04/01/17 00:02 Reactive Lymphs % (Man) 0 % 04/01/17 00:02 Monocytes % (Manual) 4.0 % (0.0-7.3) 04/01/17 00:02 Eosinophils % (Manual) 0 % (0.0-4.3) 04/01/17 00:02 Basophils % (Manual) 0 % (0.0-1.8) 04/01/17 00:02 Metamyelocytes % 0 % 04/01/17 00:02 Myelocytes % 1.0 % 04/01/17 00:02 Promyelocytes % 0 % 04/01/17 00:02 Blast Cells % 0 % 04/01/17 00:02 Nucleated RBC % Not Reportable 04/01/17 00:02 Seg Neutrophils # 13.0 K/mm3 (1.8-7.7) H 04/03/17 04:46 Seg Neutrophils # Man 12.4 K/mm3 (1.8-7.7) H 04/01/17 00:02 Band Neutrophils # 3.9 K/mm3 04/01/17 00:02 Lymphocytes # (Manual) 0.4 K/mm3 (1.2-5.4) L 04/01/17 00:02 Abs React Lymphs (Man) 0.0 K/mm3 04/01/17 00:02 Monocytes # (Manual) 0.7 K/mm3 (0.0-0.8) 04/01/17 00:02 Eosinophils # (Manual) 0.0 K/mm3 (0.0-0.4) 04/01/17 00:02 Basophils # (Manual) 0.0 K/mm3 (0.0-0.1) 04/01/17 00:02 Metamyelocytes # 0.0 K/mm3 04/01/17 00:02 Myelocytes # 0.2 K/mm3 04/01/17 00:02 Promyelocytes # 0.0 K/mm3 04/01/17 00:02 Blast Cells # 0.0 K/mm3 04/01/17 00:02 WBC Morphology Not Reportable 04/01/17 00:02 Hypersegmented Neuts Not Reportable 04/01/17 00:02 Hyposegmented Neuts Not Reportable 04/01/17 00:02 Hypogranular Neuts Not Reportable 04/01/17 00:02 Smudge Cells Not Reportable 04/01/17 00:02 Toxic Granulation Not Reportable 04/01/17 00:02 Toxic Vacuolation Not Reportable 04/01/17 00:02 Dohle Bodies Not Reportable 04/01/17 00:02 Pelger-Huet Anomaly Not Reportable 04/01/17 00:02 Prosper Rods Not Reportable 04/01/17 00:02 Platelet Estimate Consistent w auto 04/01/17 00:02 Clumped Platelets Not Reportable 04/01/17 00:02 Plt Clumps, EDTA Not Reportable 04/01/17 00:02 Large Platelets Not Reportable 04/01/17 00:02 Giant Platelets Not Reportable 04/01/17 00:02 Platelet Satelliting Not Reportable 04/01/17 00:02 Plt Morphology Comment Not Reportable 04/01/17 00:02 RBC Morphology Not Reportable 04/01/17 00:02 Dimorphic RBCs Not Reportable 04/01/17 00:02 Polychromasia Few 04/01/17 00:02 Hypochromasia Not Reportable 04/01/17 00:02 Poikilocytosis Not Reportable 04/01/17 00:02 Anisocytosis 1+ 04/01/17 00:02 Microcytosis Not Reportable 04/01/17 00:02 Macrocytosis Not Reportable 04/01/17 00:02 Spherocytes Not Reportable 04/01/17 00:02 Pappenheimer Bodies Not Reportable 04/01/17 00:02 Sickle Cells Not Reportable 04/01/17 00:02 Target Cells Not Reportable 04/01/17 00:02 Tear Drop Cells Not Reportable 04/01/17 00:02 Ovalocytes Not Reportable 04/01/17 00:02 Helmet Cells Not Reportable 04/01/17 00:02 [place] Bodies Not Reportable 04/01/17 00:02 [place] Rings Not Reportable 04/01/17 00:02 [place]ien Cells Not Reportable 04/01/17 00:02 Bite Cells Not Reportable 04/01/17 00:02 Crenated Cell Not Reportable 04/01/17 00:02 Elliptocytes Not Reportable 04/01/17 00:02 Acanthocytes (Spur) Not Reportable 04/01/17 00:02 Rouleaux Not Reportable 04/01/17 00:02 Hemoglobin C Crystals Not Reportable 04/01/17 00:02 Schistocytes Not Reportable 04/01/17 00:02 Malaria parasites Not Reportable 04/01/17 00:02 Mikal Bodies Not Reportable 04/01/17 00:02 Hem Pathologist Commnt No 04/01/17 00:02 D-Dimer 9484.24 ng/mlDDU (0-234) H 04/01/17 00:02 POC ABG pH 7.349 (7.35-7.45) L 04/01/17 10:11 POC ABG pCO2 39.4 (35-45) 04/01/17 10:11 POC ABG pO2 133 (80-105) H 04/01/17 10:11 POC ABG HCO3 21.7 04/01/17 10:11 POC ABG Total CO2 23 04/01/17 10:11 POC ABG O2 Sat 99 04/01/17 10:11 POC ABG Base Excess -4 04/01/17 10:11 FiO2 50 % 04/01/17 10:11 Sodium 141 mmol/L (137-145) 04/04/17 10:18 Potassium 3.4 mmol/L (3.6-5.0) L 04/04/17 10:18 Chloride 101.9 mmol/L (98-107) 04/04/17 10:18 Carbon Dioxide 24 mmol/L (22-30) D 04/04/17 10:18 Anion Gap 19 mmol/L 04/04/17 10:18 BUN 8 mg/dL (7-17) 04/04/17 10:18 Creatinine 0.6 mg/dL (0.7-1.2) L 04/04/17 10:18 Estimated GFR > 60 ml/min 04/04/17 10:18 BUN/Creatinine Ratio 13.33 % 04/04/17 10:18 Glucose 83 mg/dL (65-100) 04/04/17 10:18 Lactic Acid 0.80 mmol/L (0.7-2.0) 04/02/17 13:54 Uric Acid 4.6 mg/dL (3.5-7.6) 04/01/17 00:02 Calcium 8.7 mg/dL (8.4-10.2) 04/04/17 10:18 Magnesium 1.90 mg/dL (1.7-2.3) 04/04/17 10:18 Total Bilirubin 0.50 mg/dL (0.1-1.2) 04/01/17 00:02 AST 19 units/L (5-40) 04/01/17 00:02 ALT 9 units/L (7-56) 04/01/17 00:02 Alkaline Phosphatase 122 units/L (35-129) 04/01/17 00:02 Lactate Dehydrogenase 293 units/L (91-180) H 04/01/17 17:05 C-Reactive Protein 20.50 mg/dL (0.00-1.30) H 04/02/17 13:54 Total Protein 5.9 g/dL (6.3-8.2) L 04/01/17 00:02 Albumin 2.7 g/dL (3.9-5) L 04/01/17 00:02 Albumin/Globulin Ratio 0.8 % 04/01/17 00:02 TSH 3.760 mlU/mL (0.270-4.200) 04/01/17 17:05 Free T4 0.45 ng/dL (0.76-1.46) L 04/01/17 17:05 Urine Color Yellow (Yellow) 03/31/17 14:00 Urine Turbidity Clear (Clear) 03/31/17 14:00 Urine pH 6.0 (5.0-7.0) 03/31/17 14:00 Ur Specific [place] 1.018 (1.003-1.030) 03/31/17 14:00 Urine Protein 30 mg/dl mg/dL (Negative) 03/31/17 14:00 Urine Glucose (UA) Neg mg/dL (Negative) 03/31/17 14:00 Urine Ketones 80 mg/dL (Negative) 03/31/17 14:00 Urine Blood Neg (Negative) 03/31/17 14:00 Urine Nitrite Neg (Negative) 03/31/17 14:00 Urine Bilirubin Neg (Negative) 03/31/17 14:00 Urine Urobilinogen < 2.0 mg/dL (<2.0) 03/31/17 14:00 Ur Leukocyte Esterase Neg (Negative) 03/31/17 14:00 Urine WBC (Auto) 1.0 /HPF (0.0-6.0) 03/31/17 14:00 Urine RBC (Auto) 1.0 /HPF (0.0-6.0) 03/31/17 14:00 U Epithel Cells (Auto) 1.0 /HPF (0-13.0) 03/31/17 14:00 Urine Mucus 1+ /HPF 03/31/17 14:00 Blood Type B POSITIVE 03/30/17 22:27 Antibody Screen TNR 03/30/17 22:27 ASHLEY Antibody Screen Negative 03/30/17 22:27
--- NOTE | 2017-04-05 11:33 | Progress Note ---
Hospitalist Physical - Constitutional Vitals: Temp Pulse Resp BP Pulse Ox 98.5 F 92 H 20 147/98 98 04/05/17 07:52 04/05/17 10:48 04/05/17 10:48 04/05/17 07:52 04/05/17 10:50 General appearance: Present: no acute distress, obese Results - Labs CBC & Chem 7: 04/05/17 07:26 04/04/17 10:18 Labs: Laboratory Last Values WBC 10.9 K/mm3 (4.5-11.0) 04/05/17 07:26 RBC 3.17 M/mm3 (3.65-5.03) L 04/05/17 07:26 Hgb 8.5 gm/dl (10.1-14.3) L 04/05/17 07:26 Hct 25.4 % (30.3-42.9) L 04/05/17 07:26 MCV 80 fl (79-97) 04/05/17 07:26 MCH 27 pg (28-32) L 04/05/17 07:26 MCHC 34 % (30-34) 04/05/17 07:26 RDW 18.8 % (13.2-15.2) H 04/05/17 07:26 Plt Count 315 K/mm3 (140-440) 04/05/17 07:26 Lymph % (Auto) 9.3 % (13.4-35.0) L 04/03/17 04:46 [place] % (Auto) 8.2 % (0.0-7.3) H 04/03/17 04:46 Eos % (Auto) 1.1 % (0.0-4.3) 04/03/17 04:46 Baso % (Auto) 0.2 % (0.0-1.8) 04/03/17 04:46 Lymph # 1.5 K/mm3 (1.2-5.4) 04/03/17 04:46 [place] # 1.3 K/mm3 (0.0-0.8) H 04/03/17 04:46 Eos # 0.2 K/mm3 (0.0-0.4) 04/03/17 04:46 Baso # 0.0 K/mm3 (0.0-0.1) 04/03/17 04:46 Add Manual Diff Complete 04/01/17 00:02 Total Counted 100 04/01/17 00:02 Seg Neutrophils % 81.2 % (40.0-70.0) H 04/03/17 04:46 Seg Neuts % (Manual) 71.0 % (40.0-70.0) H 04/01/17 00:02 Band Neutrophils % 22.0 % 04/01/17 00:02 Lymphocytes % (Manual) 2.0 % (13.4-35.0) L 04/01/17 00:02 Reactive Lymphs % (Man) 0 % 04/01/17 00:02 Monocytes % (Manual) 4.0 % (0.0-7.3) 04/01/17 00:02 Eosinophils % (Manual) 0 % (0.0-4.3) 04/01/17 00:02 Basophils % (Manual) 0 % (0.0-1.8) 04/01/17 00:02 Metamyelocytes % 0 % 04/01/17 00:02 Myelocytes % 1.0 % 04/01/17 00:02 Promyelocytes % 0 % 04/01/17 00:02 Blast Cells % 0 % 04/01/17 00:02 Nucleated RBC % Not Reportable 04/01/17 00:02 Seg Neutrophils # 13.0 K/mm3 (1.8-7.7) H 04/03/17 04:46 Seg Neutrophils # Man 12.4 K/mm3 (1.8-7.7) H 04/01/17 00:02 Band Neutrophils # 3.9 K/mm3 04/01/17 00:02 Lymphocytes # (Manual) 0.4 K/mm3 (1.2-5.4) L 04/01/17 00:02 Abs React Lymphs (Man) 0.0 K/mm3 04/01/17 00:02 Monocytes # (Manual) 0.7 K/mm3 (0.0-0.8) 04/01/17 00:02 Eosinophils # (Manual) 0.0 K/mm3 (0.0-0.4) 04/01/17 00:02 Basophils # (Manual) 0.0 K/mm3 (0.0-0.1) 04/01/17 00:02 Metamyelocytes # 0.0 K/mm3 04/01/17 00:02 Myelocytes # 0.2 K/mm3 04/01/17 00:02 Promyelocytes # 0.0 K/mm3 04/01/17 00:02 Blast Cells # 0.0 K/mm3 04/01/17 00:02 WBC Morphology Not Reportable 04/01/17 00:02 Hypersegmented Neuts Not Reportable 04/01/17 00:02 Hyposegmented Neuts Not Reportable 04/01/17 00:02 Hypogranular Neuts Not Reportable 04/01/17 00:02 Smudge Cells Not Reportable 04/01/17 00:02 Toxic Granulation Not Reportable 04/01/17 00:02 Toxic Vacuolation Not Reportable 04/01/17 00:02 Dohle Bodies Not Reportable 04/01/17 00:02 Pelger-Huet Anomaly Not Reportable 04/01/17 00:02 Prosper Rods Not Reportable 04/01/17 00:02 Platelet Estimate Consistent w auto 04/01/17 00:02 Clumped Platelets Not Reportable 04/01/17 00:02 Plt Clumps, EDTA Not Reportable 04/01/17 00:02 Large Platelets Not Reportable 04/01/17 00:02 Giant Platelets Not Reportable 04/01/17 00:02 Platelet Satelliting Not Reportable 04/01/17 00:02 Plt Morphology Comment Not Reportable 04/01/17 00:02 RBC Morphology Not Reportable 04/01/17 00:02 Dimorphic RBCs Not Reportable 04/01/17 00:02 Polychromasia Few 04/01/17 00:02 Hypochromasia Not Reportable 04/01/17 00:02 Poikilocytosis Not Reportable 04/01/17 00:02 Anisocytosis 1+ 04/01/17 00:02 Microcytosis Not Reportable 04/01/17 00:02 Macrocytosis Not Reportable 04/01/17 00:02 Spherocytes Not Reportable 04/01/17 00:02 Pappenheimer Bodies Not Reportable 04/01/17 00:02 Sickle Cells Not Reportable 04/01/17 00:02 Target Cells Not Reportable 04/01/17 00:02 Tear Drop Cells Not Reportable 04/01/17 00:02 Ovalocytes Not Reportable 04/01/17 00:02 Helmet Cells Not Reportable 04/01/17 00:02 [place] Bodies Not Reportable 04/01/17 00:02 [place] Rings Not Reportable 04/01/17 00:02 [place] Cells Not Reportable 04/01/17 00:02 Bite Cells Not Reportable 04/01/17 00:02 Crenated Cell Not Reportable 04/01/17 00:02 Elliptocytes Not Reportable 04/01/17 00:02 Acanthocytes (Spur) Not Reportable 04/01/17 00:02 Rouleaux Not Reportable 04/01/17 00:02 Hemoglobin C Crystals Not Reportable 04/01/17 00:02 Schistocytes Not Reportable 04/01/17 00:02 Malaria parasites Not Reportable 04/01/17 00:02 Mikal Bodies Not Reportable 04/01/17 00:02 Hem Pathologist Commnt No 04/01/17 00:02 D-Dimer 9484.24 ng/mlDDU (0-234) H 04/01/17 00:02 POC ABG pH 7.349 (7.35-7.45) L 04/01/17 10:11 POC ABG pCO2 39.4 (35-45) 04/01/17 10:11 POC ABG pO2 133 (80-105) H 04/01/17 10:11 POC ABG HCO3 21.7 04/01/17 10:11 POC ABG Total CO2 23 04/01/17 10:11 POC ABG O2 Sat 99 04/01/17 10:11 POC ABG Base Excess -4 04/01/17 10:11 FiO2 50 % 04/01/17 10:11 Sodium 141 mmol/L (137-145) 04/04/17 10:18 Potassium 3.4 mmol/L (3.6-5.0) L 04/04/17 10:18 Chloride 101.9 mmol/L (98-107) 04/04/17 10:18 Carbon Dioxide 24 mmol/L (22-30) D 04/04/17 10:18 Anion Gap 19 mmol/L 04/04/17 10:18 BUN 8 mg/dL (7-17) 04/04/17 10:18 Creatinine 0.6 mg/dL (0.7-1.2) L 04/04/17 10:18 Estimated GFR > 60 ml/min 04/04/17 10:18 BUN/Creatinine Ratio 13.33 % 04/04/17 10:18 Glucose 83 mg/dL (65-100) 04/04/17 10:18 Lactic Acid 0.80 mmol/L (0.7-2.0) 04/02/17 13:54 Uric Acid 4.6 mg/dL (3.5-7.6) 04/01/17 00:02 Calcium 8.7 mg/dL (8.4-10.2) 04/04/17 10:18 Magnesium 1.90 mg/dL (1.7-2.3) 04/04/17 10:18 Total Bilirubin 0.50 mg/dL (0.1-1.2) 04/01/17 00:02 AST 19 units/L (5-40) 04/01/17 00:02 ALT 9 units/L (7-56) 04/01/17 00:02 Alkaline Phosphatase 122 units/L (35-129) 04/01/17 00:02 Lactate Dehydrogenase 293 units/L (91-180) H 04/01/17 17:05 C-Reactive Protein 20.50 mg/dL (0.00-1.30) H 04/02/17 13:54 Total Protein 5.9 g/dL (6.3-8.2) L 04/01/17 00:02 Albumin 2.7 g/dL (3.9-5) L 04/01/17 00:02 Albumin/Globulin Ratio 0.8 % 04/01/17 00:02 TSH 3.760 mlU/mL (0.270-4.200) 04/01/17 17:05 Free T4 0.45 ng/dL (0.76-1.46) L 04/01/17 17:05 Urine Color Yellow (Yellow) 03/31/17 14:00 Urine Turbidity Clear (Clear) 03/31/17 14:00 Urine pH 6.0 (5.0-7.0) 03/31/17 14:00 Ur Specific [place] 1.018 (1.003-1.030) 03/31/17 14:00 Urine Protein 30 mg/dl mg/dL (Negative) 03/31/17 14:00 Urine Glucose (UA) Neg mg/dL (Negative) 03/31/17 14:00 Urine Ketones 80 mg/dL (Negative) 03/31/17 14:00 Urine Blood Neg (Negative) 03/31/17 14:00 Urine Nitrite Neg (Negative) 03/31/17 14:00 Urine Bilirubin Neg (Negative) 03/31/17 14:00 Urine Urobilinogen < 2.0 mg/dL (<2.0) 03/31/17 14:00 Ur Leukocyte Esterase Neg (Negative) 03/31/17 14:00 Urine WBC (Auto) 1.0 /HPF (0.0-6.0) 03/31/17 14:00 Urine RBC (Auto) 1.0 /HPF (0.0-6.0) 03/31/17 14:00 U Epithel Cells (Auto) 1.0 /HPF (0-13.0) 03/31/17 14:00 Urine Mucus 1+ /HPF 03/31/17 14:00 Blood Type B POSITIVE 03/30/17 22:27 Antibody Screen TNR 03/30/17 22:27 ASHLEY Antibody Screen Negative 03/30/17 22:27
--- NOTE | 2017-04-05 11:33 | Progress Note ---
Assessment and Plan A/P POD#5 s/p primary LSTCS arrest of descent, cardiomyopathy, HTN, anemia Discussed with cardiololgy and medicine team and may be discharged with lasix, labetolol, and captopril pain well controlled will be discharged with percocet and motrin Dsicharged home today with follow up with Dr. Lainez in 1-2 weeks F/U with OB in 5 days for staple removal and post op check f/u with primary care in 1-2 weeks ( needs cpap and possible sleep study ) s/P nutrition consult for weight control Subjective - Subjective Date of service: 04/05/17 Principal diagnosis: 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%); Acute Resp Distress; Anxiety Patient reports: appetite normal, voiding normally, pain well controlled, flatus , bowel movement, ambulating normally : doing well (D/c home previously to care of family ) Objective - Vital Signs Latest vital signs: Vital Signs Temp Pulse Pulse Pulse Resp BP BP 04/05/17 10:50 04/05/17 10:48 92 H 20 04/05/17 10:19 93 H 04/05/17 07:52 98.5 F 92 H 92 H 20 147/98 04/05/17 05:28 98.1 F 89 89 20 136/94 04/05/17 00:19 104 H 20 04/05/17 00:07 99.3 F 105 H 105 H 20 139/77 04/04/17 22:45 106 H 139/90 04/04/17 22:00 109 H 04/04/17 21:45 106 H 139/90 04/04/17 21:06 04/04/17 21:01 99.3 F 106 H 106 H 20 139/90 04/04/17 17:11 98.2 F 107 H 107 H 20 143/85 04/04/17 11:44 99.0 F 106 H 106 H 20 139/91 Pulse Ox 04/05/17 10:50 98 04/05/17 10:48 99 04/05/17 10:19 04/05/17 07:52 96 04/05/17 05:28 100 04/05/17 00:19 100 04/05/17 00:07 100 04/04/17 22:45 04/04/17 22:00 04/04/17 21:45 04/04/17 21:06 99 04/04/17 21:01 97 04/04/17 17:11 95 04/04/17 11:44 94 Intake and Output 04/04/17 04/05/17 04/05/17 22:59 06:59 14:59 Intake Total 1440 Balance 1440 Intake: Oral 1440 Other: Total, Intake Amount 480 Voiding Method Toilet Toilet # Voids 3 Void 2 # Bowel Movements 1 Weight 139.2 kg - Exam Breasts: Present: normal Cardiovascular: Present: Regular rate Lungs: Present: Clear to auscultation, Normal air movement Abdomen: Present: normal appearance, soft, normal bowel sounds. Absent: distention, tenderness, guarding Vulva: both: normal Uterus: Present: normal, firm, fundal height below umbilicus. Absent: bogginess , tenderness Extremities: Present: normal Incision: Present: normal, dry, intact - Labs Labs: Abnormal lab results 04/04/17 04/05/17 Range/Units 10:18 07:26 RBC 3.17 L (3.65-5.03) M/mm3 Hgb 8.5 L (10.1-14.3) gm/dl Hct 25.4 L (30.3-42.9) % MCH 27 L (28-32) pg RDW 18.8 H (13.2-15.2) % Potassium 3.4 L (3.6-5.0) mmol/L Creatinine 0.6 L (0.7-1.2) mg/dL
--- NOTE | 2017-04-05 11:39 | Discharge Summary ---
Providers - Providers Date of Admission: 03/30/17 21:04 Date of discharge: 04/05/17 Attending physician: CARLENE SAMANO MD 04/03/17 14:50 Consult to Physician [CONS] Routine Consulting Provider: KRISTY GOMEZ Reason For Exam: Critical Care Management Place consult to:: Dr. Gomez Notified:: yes Comment:: patient seen by Dr. Gomez Primary care physician: CARLENE SAMANO MD Hospitalization Reason for admission: induction of labor Delivery: Procedure: section, primary low transverse Episiotomy: none Laceration: none Incision: normal, dry, intact (kallie intact) complications: other (PP cardiomyopathy ) Discharge diagnosis: IUP at term delivered baby: male Hospital course: see dictation discharge note for details of hospital course Condition at discharge: Good Disposition: DC-01 TO HOME OR SELFCARE - Discharge Diagnoses (1) Status post primary low transverse section Status: Acute (2) Cardiomyopathy, peripartum, Status: Acute (3) Obesity Status: Acute Qualifiers: Obesity type: due to excess calories Obesity classification: adult class 3 (BMI >= 40) Serious obesity comorbidity presence: with serious comorbidity Body mass index: B (4) Tachycardia Status: Acute Plan - Discharge Medications Prescriptions: Captopril [Capoten] 25 mg PO BID #60 tablet Ferrous Sulfate [Feosol 325 MG tab] 325 mg PO QDAY #30 tablet Furosemide [Lasix] 20 mg PO QDAY #30 tablet HYDROcodone/APAP 5-325 [[place] 5-325 mg TAB] 1 each PO TID PRN #21 tablet PRN Reason: Pain, Moderate (4-6) Hydrocortisone [Anucort-HC SUPPOS] 25 mg [place] BID PRN #30 supp.rect PRN Reason: Hemorrhoids Ibuprofen [Motrin 800 MG tab] 800 mg PO Q8H PRN #21 tablet PRN Reason: Pain, Mild (1-3) Labetalol [Normodyne TAB] 200 mg PO BID #60 tablet - Provider Discharge Summary Additional instructions: [] Smoking cessation referral if applicable(refer to patient education folder for contact #) [] Refer to [facility] Booklet Call your doctor immediately for: * Fever > 100.5 * Heavy vaginal bleeding ( >1 pad per hour) * Severe persistent headache * Shortness of breath * Reddened, hot, painful area to leg or breast * Drainage or odor from incision. * Keep incision clean and dry at all times and follow doctor's instructions regarding bathing/showering - Follow up plan Follow up: CARLENE SAMANO MD [Primary Care Provider] - 7 Days
--- NOTE | 2017-04-05 12:13 | Event Note ---
Date: 04/05/17 (Discharge summary ) Admission: 03/31/17 Discharge: 04/05/17 Dx: Morbid Obesity Hx of PE Tachycardia Dyspnea Cardiomyopathy Acute Hypocix respiratory failure Ventricular tachycardia HTN Leukocytosis Anemia PP LSTCS Details This is a 26-year-old G one P0 at 39 weeks was admitted to labor and delivery for induction of labor for history of PE in the past on Lovenox and heparin during her . The patient was admitted on 03/31/2017 for induction with Cervidil. Cervidil was placed and removed the following day with Pitocin and AROM attempted. Patient progressed to 9 cm. Patient arrested and discussion was determined to proceed with primary low segment transverse C- section. The was performed without difficulty or complications however during her procedure she developed shortness of breath chest pain immediately after the . Patient became tachycardic and hypoxic and a medicine consult was obtained immediately stat. It was determined that the patient to obtain an EKG and echocardiogram and a CT angiogram. Medicine team recommended to be transferred to the ICU. CT scan angiogram did not reveal a PE which was expected as patient has a history of a PE in the past. Echocardiogram revealed a 35% ejection fraction consistent with cardiomyopathy. Patient was under the care of medicine team ICU until until . After several consults including pulmonology cardiology and the medicine team, patient did well to be able to be transferred to telemetry. Patient's meds list included Lasix 20 mg by mouth daily, labetalol 100 mg twice a day, iron tab po bid , captopril ( see med list), Motrin 600 mg every 6 hours , Percocet 2 tablets by mouth every 4 hours, and Lovenox 40 mg by mouth twice a day. Patient remained in telemetry from 04/03/17 until 04/05/17. It was determined that the patient was well enough to be discharged home on the medications as noted. She is to follow up with cardiology with Dr. Rizvi in 1-2 weeks phone number was presented to the patient. She is also to call her primary care physician to follow up in 1-2 weeks to discuss possible sleep apnea CPAP and her overall health including nutrition and weight loss. During her hospitalization she was seen by a potash flaker and given guidance for weight loss. She is to follow up with [facility] in 5 days to have kallie removed and to evaluate postop care. Patient's baby did very well and was discharged home on post op day #2 with family members. Patient was given instructions and agrees with the plan of discharge. Discharged home in stable condition.
--- NOTE | 2017-04-05 12:45 | Progress Note ---
Assessment and Plan Assessment: Liv- cardiomyopathy EF 35-40% Post-, s/p 03/31/2017 Continue labetalol/captopril/po lasix (Drugs are transferred into milk at very low levels. Captopril and enalapril may be used in lactating women. However, newborns may be more susceptible to the hemodynamic effects of these drugs, such as hypotension, and sequelae such as oliguria and seizures. Therefore, we suggest that the hemodynamic status of the be taken into account when deciding whether women taking these drugs should breastfeed.) Early mild acute systolic heart failure strict I/O Pneumonia/hypoxia CTA chest: no dissection, no Pulmonary embolus currently no antibiotics CXR 04/03: infiltrates on previous study not well appreciated, likely PVC/CHF History of Pulmonary embolus 2013 Sinus tachycardia improved pauses overnight while patient sleeping, recommend sleep study, will likely benefit from CPAP Hypertension Anemia Subjective Date of service: 04/05/17 Principal diagnosis: 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%); Acute Resp Distress; Anxiety Interval history: She denies any shortness of breath or chest pain. Objective Vital Signs Temp Pulse Pulse Pulse Resp BP BP 04/05/17 10:50 04/05/17 10:48 92 H 20 04/05/17 10:19 93 H 04/05/17 07:52 98.5 F 92 H 92 H 20 147/98 04/05/17 05:28 98.1 F 89 89 20 136/94 04/05/17 00:19 104 H 20 04/05/17 00:07 99.3 F 105 H 105 H 20 139/77 04/04/17 22:45 106 H 139/90 04/04/17 22:00 109 H 04/04/17 21:45 106 H 139/90 04/04/17 21:06 04/04/17 21:01 99.3 F 106 H 106 H 20 139/90 04/04/17 17:11 98.2 F 107 H 107 H 20 143/85 Pulse Ox 04/05/17 10:50 98 04/05/17 10:48 99 04/05/17 10:19 04/05/17 07:52 96 04/05/17 05:28 100 04/05/17 00:19 100 04/05/17 00:07 100 04/04/17 22:45 04/04/17 22:00 04/04/17 21:45 04/04/17 21:06 99 04/04/17 21:01 97 04/04/17 17:11 95 - Physical Examination General: No Apparent Distress HEENT: Positive: PERRL, Normocephaly, Mucus Membranes Moist Neck: Positive: neck supple, trachea midline Cardiac: Positive: Reg Rate and Rhythm Lungs: Positive: Normal Exam Neuro: Positive: Grossly Intact, Cranial Nerve 2-12 Intact Abdomen: Positive: Soft, Active Bowel Sounds Skin: Negative: Rash, Suspicious Lesions Incision: Incision Site () Musculoskeletal: No Fluid Collection, No Pain, Normal Range of Motion Extremities: Present: warm. Absent: edema - Labs and Meds CBC 04/05/17 Range/Units 07:26 WBC 10.9 (4.5-11.0) K/mm3 RBC 3.17 L (3.65-5.03) M/mm3 Hgb 8.5 L (10.1-14.3) gm/dl Hct 25.4 L (30.3-42.9) % Plt Count 315 (140-440) K/mm3 - Imaging and Cardiology EKG: report reviewed, image reviewed Echo: report reviewed (ECHO 04/01: EF 35-40%, mild LVH) - EKG Sinus rhythms and dysrhythmias: sinus tachycardia
== END 2017-04-05 14:39 | disposition home or self-care (01) | DRG 765 ==
LOC: LD 21:04 → APU 03-31 20:59 → CC1 03-31 23:40 → 4A 04-03 16:23
PROVIDERS: ADMIT Obstetrics & Gynecology; ATTEND Obstetrics & Gynecology
PROC: 10D00Z1 Extraction of Products of Conception, Low, Open Approach (ICD-10-PCS; principal; 2017-03-31)
PROC: 10907ZC Drainage of Amniotic Fluid, Therapeutic from Products of Conception, Via Natural or Artificial Opening (ICD-10-PCS; 2017-03-31)
PROC: 4A033R1 Measurement of Arterial Saturation, Peripheral, Percutaneous Approach (ICD-10-PCS; 2017-04-01)
PROC: 3E0234Z Introduction of Serum, Toxoid and Vaccine into Muscle, Percutaneous Approach (ICD-10-PCS; 2017-04-02)
PROC: 5A09357 Assistance with Respiratory Ventilation, Less than 24 Consecutive Hours, Continuous Positive Airway Pressure (ICD-10-PCS; 2017-04-02)
DX: O62.1 Secondary uterine inertia (principal); O90.3 Peripartum cardiomyopathy; J96.01 Acute respiratory failure with hypoxia; I50.21 Acute systolic (congestive) heart failure; J69.0 Pneumonitis due to inhalation of food and vomit; O99.214 Obesity complicating childbirth; O99.53 Diseases of the respiratory system complicating the puerperium; O99.344 Other mental disorders complicating childbirth; O99.02 Anemia complicating childbirth; O16.4 Unspecified maternal hypertension, complicating childbirth; E66.01 Morbid (severe) obesity due to excess calories; I47.2 Ventricular tachycardia; F41.9 Anxiety disorder, unspecified; D64.9 Anemia, unspecified; D72.829 Elevated white blood cell count, unspecified; R10.11 Right upper quadrant pain; Z3A.39 39 weeks gestation of pregnancy; Z23 Encounter for immunization; Z37.0 Single live birth; Z68.43 Body mass index [BMI] 50.0-59.9, adult; Z86.711 Personal history of pulmonary embolism
CPT/HCPCS: 36415; 36600; 59200; 71010; 71275; 76815; 80048; 80053; 81001; 82140; 82565; 82803; 83615; 83735; 84439; 84443; 84450; 84460; 84550; 85007; 85014; 85018; 85025; 85027; 85379; 86140; 86850; 86900; 86901; 87040; 88307; 90707; 90715; 93005; 93010; 93306; 94660; 94760; 99211; G0463; J0360; J0456; J0595; J0690; J0696; J1650; J1940; J2250; J2270; J2370; J2405; J2590; J2765; J3010; J7030; J7050; J7120; Q9967